=== PATIENT | female | born 1960 | race Caucasian/White ===

== ENCOUNTER 2024-06-06 16:54 | Observation (INO) | payer MEDICAID, SELFPAY ==
--- NOTE | ~2024-06-06 | MR_ITS ---
EXAMINATION: MR BRAIN WITHOUT CONTRAST CLINICAL INFORMATION: Cerebellar cerebrovascular accident. COMPARISON: CT head from 06/06/2024. TECHNIQUE: MRI of the brain was obtained using routine sequences without contrast. FINDINGS: No focal restricted diffusion is demonstrated to suggest acute or subacute cerebral ischemia. No evidence of acute or chronic hemorrhagic products on heme-sensitive imaging. Nonspecific scattered subcortical, deep white matter, and periventricular T2 FLAIR hyperintensities (including some of which are in a perivenular distribution within the periatrial/temporal white matter). Proportional prominence of the ventricles and sulcal spaces without evidence of obstructive hydrocephalus. No abnormal mass effect. No midline shift. Normal appearance of the pituitary gland. Normal positioning of the cerebellar tonsils. Normal arterial and venous vascular flow voids are present. Normal, homogeneous marrow signal. There is a 1.5 cm simultaneous inclusion cyst in the right cheek. Moderate mucosal thickening of the paranasal sinuses. No signal abnormalities within the mastoids. MR/MR head/brain wo con IMPRESSION: 1. No acute intracranial abnormalities. 2. Moderate nonspecific white matter changes. While these changes are most commonly seen with underlying microangiopathy, the overall distribution could be seen in the setting of chronic demyelinating lesions in the appropriate clinical setting. Mild generalized cerebral volume loss.
--- NOTE | ~2024-06-06 | CT_ITS ---
EXAMINATION: CT HEAD WITHOUT CONTRAST CLINICAL INFORMATION: Dizziness COMPARISON: None. TECHNIQUE: Multidetector CT examination of the head is performed without contrast. This CT examination was performed using dose optimization techniques as appropriate, variously including the following: *Automated exposure control *Adjustment of mA and/or kV according to patient size (this includes techniques or standardized protocols for targeted exams where dose is matched to indication/reason for exam; i.e. extremities or head) *Use of iterative reconstruction technique DLP: 652 mGy-cm FINDINGS: There is no evidence of a recent intracranial hemorrhage or extra-axial collection. The midline structures are nondisplaced. The ventricles, cisterns, and sulci are within normal limits. There is no evidence of an intra-axial mass. There are no suspicious focal areas of abnormal brain attenuation. The luther-white interface is within normal limits. There is no evidence of acute territorial infarct. There is a small poorly defined area of low-attenuation in the deep white matter of the right pinto radiata (series 2, image 34). This could represent some microangiopathy or nonspecific white matter disease. There is no mass effect. There is opacification within several of the right ethmoid air cells and there is fluid within the sphenoid sinus. The mastoids are not well pneumatized but are aerated. CT/CT head/brain wo IV con IMPRESSION: 1. There is no evidence of a recent intracranial hemorrhage. 2. No large territorial infarct 3. Some nonspecific white matter disease There is some paranasal sinus disease including fluid in the sphenoid
[2024-06-06 17:03] VITALS: BP 184/90; PULSE 84; O2SAT 97
[2024-06-06 17:18] VITALS: BP 167/73; PULSE 92; RESP 18; TEMP 36.6; O2SAT 97; BMI 29.2
[2024-06-06 17:23] VITALS: BP 167/73; PULSE 92; RESP 18; TEMP 36.6; O2SAT 97
--- NOTE | 2024-06-06 17:35 | PC.NURSE ---
20G to RAC. Tolerated well, good blood return.
--- NOTE | 2024-06-06 17:35 | PC.NURSE ---
Labs drawn and sent.
[2024-06-06 17:39] LABS: MANUAL DIFF FLAG NO
[2024-06-06 17:45] LABS: Basophils Absolute Auto 0.1 X10*3/uL (0.0-0.2); Basophils Percent Auto 0.7 % (0-2); Eosinophils Absolute Auto 0.2 X10*3/uL (0.0-0.4); Eosinophils Percent Auto 1.7 % (0-4); Hematocrit 44.6 % (37.0-47.0); Imm Gran Abs Auto 0.01 X10*3/uL (0.00-0.03); Imm Gran Pct Auto 0.1 % (0.0-0.4); Lymphocytes Absolute Auto 3.3 X10*3/uL (1.2-4.9); Lymphocytes Percent Auto 37.2 % (20-40); Mean Corpuscular HGB Conc 35.9 g/dl (31.0-35.0); Mean Corpuscular Hemoglobin 32.3 pg (27.0-33.0); Mean Corpuscular Volume 90.1 fL (80.0-98.0); Mean Platelet Volume 9.5 fL (9.4-12.3); Monocytes Absolute Auto 0.8 X10*3/uL (0.1-1.2); Monocytes Percent Auto 8.6 % (2-11); Neutrophils Absolute Auto 4.6 x10*3/uL (2.0-8.3); Neutrophils Percent Auto 51.7 % (45-73); Platelet Count 267 X10*3/uL (160-400); Red Blood Count 4.95 X10*6/uL (4.20-5.50); Red Cell Distribution Width 12.7 % (11.0-16.0); White Blood Count 8.9 X10*3/uL (4.8-10.8)
--- NOTE | 2024-06-06 17:53 | ECG_ITS ---
Test Reason : DIZZINESS Blood Pressure : / mmHG Vent. Rate : 088 BPM Atrial Rate : 088 BPM P-R Int : 118 ms QRS Dur : 086 ms QT Int : 340 ms P-R-T Axes : 059 046 036 degrees QTc Int : 411 ms Normal sinus rhythm with sinus arrhythmia Nonspecific ST abnormality Abnormal ECG When compared with ECG of 07-DEC-2011 18:46, No significant change was found Referred By: Ranjan Garsia Electronically Signed By:TERESO RODNEY
[2024-06-06 17:54] LABS: Anion Gap 15 (12-20); Blood Urea Nitrogen 11 mg/dL (9-16); Calcium 9.8 mg/dL (8.4-10.2); Carbon Dioxide 21 mmol/L (22-29); Chloride 109 mmol/L (96-108); Creatinine Clr Calc Pharmacy 89.3; Estimated Glomerular Filt Rate > 60; Glucose Random 94 mg/dL (60-115); Potassium 3.8 mmol/L (3.3-5.1); Sodium 141 mmol/L (135-145)
--- NOTE | 2024-06-06 18:04 | ED_ITS ---
HPI - Dizziness General Chief Complaint: Dizziness Stated Complaint: dizziness Time Seen by Provider: 06/06/24 17:51 Source: patient and family (, Ramos) Mode of arrival: EMS Limitations: no limitations History of Present Illness ED Provider: Dr. Ranjan Garsia HPI Narrative: 63-year-old female with a history of MS diagnosed 21 years ago in remission who presents emergency department for evaluation of dizziness. Patient states that 3 days prior she had a sudden onset of dizziness. She states that she was in bed, rolled over and developed spinning sensation. She states that the spinning sensation resolves with rest but comes on with some position change. Patient had associated photophobia and occasional headache with the dizziness. She denied nausea, vomiting, diarrhea, fever, chills, rhinorrhea. Patient states that she took loratadine with no relief for symptoms. According to her the patient has been in bed for 3 days and has not been able to get up and walk secondary to her dizziness. The states the patient had difficulty transferring from her bed to EMS stretcher secondary to severe vertigo. She had to pause several times prior to being able to get on a stretcher. She denied fever, chills, rhinorrhea, sore throat, nausea, vomiting, diarrhea. She denies weakness. She states that the vertigo does make her head hurt but she states that is not headache is just an uncomfortable feeling. Related Data Home Medications ?Medication ?Instructions ?Recorded ?Confirmed ibuprofen 200 mg tablet 200 mg PO DAILY PRN Pain 06/06/24 06/06/24 loratadine 10 mg tablet 10 mg PO DAILY PRN Allergy Symptoms 06/06/24 06/06/24 Allergies Allergy/AdvReac Type Severity Reaction Status Date / Time No Known Allergies Allergy Verified 06/06/24 17:20 Review of Systems 2 Review of Systems: Yes all other systems are reviewed and are negative [facility] Past Medical History [facility] Narrative: Social history: She does smoke cigarettes. She denies tobacco and alcohol use. Her is here in the emergency department. Medical History (Updated 06/06/24 @ 22:14 by Ranjan Garsia MD) Multiple sclerosis Social History Social History Smoked in Last 30 Days: Yes Use of substances other than those prescribed or required for medical reasons: No Advance Directives: No Advance Directives Information Provided: No Do you have a plan to hurt others: No Plan Physical Exam 2 Vital Signs: Vital Signs: Last Vital Signs Temp 98.8 F 06/06/24 21:16 Pulse 88 06/06/24 21:16 Resp 18 06/06/24 21:16 BP 134/82 06/06/24 21:16 Pulse Ox 97 06/06/24 21:16 O2 Del Method Room Air 06/06/24 21:16 BMI result Body Mass Index 29.2 Vital signs revealed an elevated blood pressure of 167/73 Exam: General: Awake, alert in no distress, patient has inducible vertigo with minimal position change Head: Normocephalic, atraumatic EENT: PERRL, Lids normal, sclera normal, conjunctiva normal, nose normal , ears normal, throat without erythema or exudates Neck: Supple, no adenopathy Lung: breath sounds symmetric, no wheezing, rales or rhonchi Chest: symmetric movement, nontender Heart: regular rate and rhythm, normal S1, S2 no murmurs or rubs Abdomen: soft, non-tender, nondistended, normal bowel sounds Back: no vertebral tenderness, no CVAT Extremities: no deformities, moves all extremities symmetrically Neuro: General: Awake, alert, oriented, normal speech, Cranial nerves: cranial nerves intact Strength: moves all extremities symmetrically with normal strength Cerebellar exam: Normal ntvogw-rm-prxs-to-finger, normal rapid finger movement, normal heel to hodge Psych: Pleasant, cooperative Medications Administered Generic Name Dose Route Start Last Admin Trade Name Freq PRN Reason Stop Dose Admin Enoxaparin Sodium 40 mg 06/06/24 20:15 06/06/24 20:28 Enoxaparin Sodium 40 Mg/0.4 Ml Syringe SUBCUT 40 mg Q24H INÉS Administration Discontinued Medications Generic Name Dose Route Start Last Admin Trade Name Freq PRN Reason Stop Dose Admin Aspirin 324 mg 06/06/24 20:06 06/06/24 20:28 Aspirin 81 Mg Tab.Chew PO 06/06/24 20:07 324 mg ONCE ONE Administration Sodium Chloride 1,000 mls @ 999 mls/hr 06/06/24 18:04 06/06/24 20:30 Ns IV 06/06/24 19:04 Infused .Q1H1M STA Infusion Lorazepam 1 mg 06/06/24 18:04 06/06/24 18:51 Lorazepam 2 Mg/Ml Vial IVPUSH 06/06/24 18:05 1 mg STAT STA Administration Meclizine HCl 25 mg 06/06/24 18:04 06/06/24 18:51 Meclizine Hcl 25 Mg Tablet PO 06/06/24 18:05 25 mg ONCE STA Administration Medical Decision Making Medical Decision Making [facility] Narrative: 63-year-old female with a history of MS diagnosed 21 years ago in remission who presents emergency department for severe, positional evaluation of dizziness/room spinning vertigo x3 days to the point where she is not able to get out of bed secondary to severe dizziness. Symptoms comes on suddenly with position change and if she stays still the symptoms resolved completely. Patient had no concerning associated symptoms. Physical examination did reveal inducible vertigo with position change, neurologic exam was nonfocal. Differential diagnosis: ?Includes but is not limited to positional vertigo, MS exacerbation, cerebellar stroke, dehydration, electrolyte abnormalities, anemia Following evaluation was ordered: CBC, CMP, troponin, PTT, EKG, CT scan of the head without IV contrast Patient was initially treated with the following: Normal saline x1 L, Ativan 4 mg IV, meclizine 25 mg orally Course: 19:23 My independent interpretation patient's laboratory evaluation as follows: CBC was normal. CMP was normal. Troponin was below detectable limits. Twelve EKG was unremarkable. CT scan of the brain did not reveal any acute abnormalities, she had some nonspecific white matter disease. The patient had minimal improvement with the above treatment. Given her inability to get out of bed in the severity at her vertigo symptoms, patient will need to be admitted for further management and possible MRI to rule out cerebellar infarct. I did discuss admission with the covering hospitalist Dr. Mcrae and the patient will be admitted for further management. Admission/Observation Consideration of admission/observation: Escalation of care including admission/observation considered Consult Healthcare Provider Management of the patient was discussed with: Hospitalist Lab Data [facility] Lab Attestation statement: I reviewed the patient's lab results. 06/06/24 17:33 06/06/24 17:33 Labs: Lab Results 06/06/24 Range/Units 17:33 WBC 8.9 (4.8-10.8) X10*3/uL RBC 4.95 (4.20-5.50) X10*6/uL Hgb 16.0 (12.0-16.0) g/dl Hct 44.6 (37.0-47.0) % MCV 90.1 (80.0-98.0) fL MCH 32.3 (27.0-33.0) pg MCHC 35.9 H (31.0-35.0) g/dl RDW 12.7 (11.0-16.0) % Plt Count 267 (160-400) X10*3/uL MPV 9.5 (9.4-12.3) fL Immature Gran % (Auto) 0.1 (0.0-0.4) % Neut % (Auto) 51.7 (45-73) % Lymph % (Auto) 37.2 (20-40) % [place] % (Auto) 8.6 (2-11) % Eos % (Auto) 1.7 (0-4) % Baso % (Auto) 0.7 (0-2) % Lymph # (Auto) 3.3 (1.2-4.9) X10*3/uL [place] # (Auto) 0.8 (0.1-1.2) X10*3/uL Eos # (Auto) 0.2 (0.0-0.4) X10*3/uL Baso # (Auto) 0.1 (0.0-0.2) X10*3/uL Abs Immat Gran (auto) 0.01 (0.00-0.03) X10*3/uL Absolute Neuts (auto) 4.6 (2.0-8.3) x10*3/uL Absolute Nucleated RBC 0.000 (0.0-0.012) X10*3/uL Nucleated RBC % (auto) 0.0 (0.0-0.2) /100WBC Sodium 141 (135-145) mmol/L Potassium 3.8 (3.3-5.1) mmol/L Chloride 109 H (96-108) mmol/L Carbon Dioxide 21 L (22-29) mmol/L Anion Gap 15 (12-20) BUN 11 (9-16) mg/dL Creatinine 0.69 (0.5-1.4) mg/dL Estim Creat Clear Calc 89.3 Estimated GFR > 60 Random Glucose 94 (60-115) mg/dL Calcium 9.8 (8.4-10.2) mg/dL Total Bilirubin 0.3 (0.0-1.0) mg/dL Direct Bilirubin 0.1 (0.0-0.5) mg/dL AST 16 (5-31) U/L ALT 13 (0-31) U/L Alkaline Phosphatase 57 (39-117) U/L Troponin I High Sens < 2.7 (<3.5-17.0) ng/L Total Protein 7.5 (6.5-8.0) g/dL Albumin 4.0 (3.5-5.0) g/dL Independent Interpretation I performed an independent interpretation of an: EKG Interpretation: My independent interpretation patient's 12 EKG done at 18:02 hours is as follows: Normal sinus rhythm with a rate of 88, normal CO, QRS duration and QTC interval, no ST segment elevation, no ST segment depression Radiology Impression Discussion of test interpretation with radiology: I have reviewed the radiologist's reading. Radiologist Impression: CT head/brain wo IV con IMPRESSION: 1. There is no evidence of a recent intracranial hemorrhage. 2. No large territorial infarct 3. Some nonspecific white matter disease There is some paranasal sinus disease including fluid in the sphenoid Dictated By: Fortino Sellers MD Independent Historian Clinical information obtained from an independent historian. History obtained from or confirmed by: Spouse Chronic Conditions Patient?s care impacted by: Other (Multiple sclerosis) Discharge Plan Discharge Clinical Impression: Acute severe vertigo, Unable to ambulate Patient Disposition: Admitted As Inpatient
[2024-06-06 18:06] LABS: Troponin-I High Sensitivity < 2.7 ng/L (<3.5-17.0)
[2024-06-06 18:23] LABS: Alanine Aminotransferase 13 U/L (0-31); Alkaline Phosphatase 57 U/L (39-117); Aspartate Amino Transferase 16 U/L (5-31); Bilirubin Direct 0.1 mg/dL (0.0-0.5); Bilirubin Total 0.3 mg/dL (0.0-1.0); Total Protein 7.5 g/dL (6.5-8.0)
[2024-06-06] MEDS: 0.9 % Sodium Chloride 1,000 ML 999 ML IV (18:50)
[2024-06-06] MEDS: LORazepam 2 MG/ML VIAL 1 MG IVPUSH (18:51)
[2024-06-06] MEDS: Meclizine HCl 25 MG TABLET PO (18:51)
[2024-06-06 19:54] VITALS: BP 147/81; PULSE 83; RESP 18; TEMP 37; O2SAT 97
--- NOTE | 2024-06-06 19:55 | MHC.EDTECH ---
This tech took over care of patient at 1900,hourly rounds,vitals, and belongings list completed,patient is resting at this time, at bedside,call young in reach
--- NOTE | 2024-06-06 20:09 | PHA.MEDREC ---
Addendum entered by Tony Tolentino RP 06/06/24 20:35: MED REC CHECKED BY [facility] Original Note: Pharmacy Consult ? Medication Reconciliation Pharmacy has completed the medication reconciliation.
--- NOTE | 2024-06-06 20:11 | PM.IMHP ---
History of Present Illness Date of Service: 06/06/24 <CAROLINA Alexander - Last Filed: 06/06/24 21:58> Attending physician on admission: Cielo Schaffer <CAROLINA Alexander - Last Filed: 06/06/24 21:58> Chief Complaint: Dizziness <CAROLINA Alexander - Last Filed: 06/06/24 21:58> Pt is a 63-year-old female with a PMH significant for multiple sclerosis diagnosed 21 years ago in remission?not on home meds who presents to the ED with?dizziness x3 days. Pt reports turning over in her bed on Monday morning and then experiencing the ?whole room spinning?. Since then patient has been bed-bound and unable to sit up or walk due to extreme dizziness. Dizziness associated with positional changes of head. Also complains of occasional photophobia and intermittent mild headache. According to her who is at bedside patient has only been able to eat or drink a little bit of food during this time. Has experienced a few similar episodes of vertigo-like symptoms while changing positions in the bed in the past, though normally these would last for less than a minute at a time. Denies nausea or vomiting. No acute vision or hearing changes. Denies chest pain/pressure, palpitations. No shortness a breath or difficulty breathing. Denies fever, chills. Patient reports saw a PCP last year for a yearly physical, though did not see a a PCP prior to that for many years. In the ED pt with elevated HR of 92 and hypertensive up to 167/73. Labs were grossly unremarkable. No leukocytosis. Stable H& H. No significant electrolyte abnormalities. Renal and hepatic function baseline. Troponin negative. CT?of head showed no evidence of recent intracranial hemorrhage or large territorial infarct. Did show some nonspecific white matter disease. EKG demonstrated normal sinus rhythm with nonspecific ST Pt was treated with IVF, lorazepam, and meclizine. Pt will be admitted to the hospital under observation for treatment and further evaluation of dizziness likely secondary to BPPV. <CAROLINA Alexander - Last Filed: 06/06/24 21:58> Review of Systems Review of Systems: Dizziness associated with head movement Mild headache Photophobia No acute hearing or vision changes Denies nausea, vomiting No chest pain/pressure, palpitations Denies fever, chills, abdominal pain <CAROLINA Alexander - Last Filed: 06/06/24 21:58> [facility] Medical History: Medical History (Updated 06/06/24 @ 21:53 by CAROLINA Alexander) Multiple sclerosis <CAROLINA Alexander - Last Filed: 06/06/24 21:58> Social History: Social History Smoked in Last 30 Days: Yes Use of substances other than those prescribed or required for medical reasons: No Advance Directives: No Advance Directives Information Provided: No Do you have a plan to hurt others: No Plan <CRAOLINA Alexander - Last Filed: 06/06/24 21:58> Meds Allergies/Adverse reactions: Allergies Allergy/AdvReac Type Severity Reaction Status Date / Time No Known Allergies Allergy Verified 06/06/24 17:20 <CAROLINA Alexander - Last Filed: 06/06/24 21:58> Active Medications: Current Medications Acetaminophen (Acetaminophen 325 Mg Tablet) 650 mg PO Q6H PRN PRN Reason: Pain, Mild (Pain Scale 1-3), fever or headache Aspirin (Aspirin 81 Mg Tab.Chew) 324 mg PO ONCE ONE Stop: 06/06/24 20:07 Calcium Carbonate (Calcium Carbonate 750 Mg Tab.Chew) 750 mg PO Q4H PRN PRN Reason: Heartburn Enoxaparin Sodium (Enoxaparin Sodium 40 Mg/0.4 Ml Syringe) 40 mg SUBCUT Q24H INÉS Magnesium Hydroxide (Milk Of Magnesia 30 Ml Oral.Susp) 30 ml PO DAILY PRN PRN Reason: Constipation Meclizine HCl (Meclizine Hcl 25 Mg Tablet) 25 mg PO Q6H PRN PRN Reason: Vertigo Melatonin (Melatonin 3 Mg Tablet) 6 mg PO BEDTIME PRN PRN Reason: Insomnia Ondansetron HCl (Ondansetron Hcl 4 Mg/2 Ml Vial) 4 mg IVPUSH Q8H PRN PRN Reason: Nausea and Vomiting Sodium Chloride (0.9 % Sodium Chloride Flush 3 Ml Syringe) 3 ml IVFLUSH QSHIFT INÉS <CAROLINA Alexander - Last Filed: 06/06/24 21:58> Home medications: Home Medications ?Medication ?Instructions ?Recorded ?Confirmed ?Last Taken ?Type ibuprofen 200 mg tablet 200 mg PO DAILY PRN Pain 06/06/24 06/06/24 06/06/24 History loratadine 10 mg tablet 10 mg PO DAILY PRN Allergy Symptoms 06/06/24 06/06/24 06/06/24 History <CAROLINA Alexander - Last Filed: 06/06/24 21:58> Physical Exam Vital Signs and Narrative: Vital Signs: Last Vital Signs Temp 98.6 F 06/06/24 19:54 Pulse 83 06/06/24 19:54 Resp 18 06/06/24 19:54 BP 147/81 H 06/06/24 19:54 Pulse Ox 97 06/06/24 19:54 O2 Del Method Room Air 06/06/24 19:54 BMI result Body Mass Index 29.2 <CAROLINA Alexander - Last Filed: 06/06/24 21:58> General: AOx3, no acute distress Resp: CTA bilaterally CVS: S1, S2, RRR GI: +BS, NT, no distention Skin: Warm, dry Neuro: Cranial nerves II-XII grossly intact bilaterally. Motor grossly intact bilaterally Extremities: No edema Psych: Appropriate affect <CAROLINA Alexander - Last Filed: 06/06/24 21:58> Results Labs CBC and Chem 7: 06/06/24 17:33 06/06/24 17:33 <CAROLINA Alexander - Last Filed: 06/06/24 21:58> Labs: Laboratory Results - last 24 hr 06/06/24 17:33 MCV 90.1 MCH 32.3 MCHC 35.9 H RDW 12.7 Plt Count 267 MPV 9.5 Immature Gran % (Auto) 0.1 Neut % (Auto) 51.7 Lymph % (Auto) 37.2 [place] % (Auto) 8.6 Eos % (Auto) 1.7 Baso % (Auto) 0.7 Lymph # (Auto) 3.3 [place] # (Auto) 0.8 Eos # (Auto) 0.2 Baso # (Auto) 0.1 Abs Immat Gran (auto) 0.01 Absolute Neuts (auto) 4.6 Absolute Nucleated RBC 0.000 Nucleated RBC % (auto) 0.0 Anion Gap 15 Estim Creat Clear Calc 89.3 Estimated GFR > 60 Random Glucose 94 Calcium 9.8 Total Bilirubin 0.3 Direct Bilirubin 0.1 AST 16 ALT 13 Alkaline Phosphatase 57 Troponin I High Sens < 2.7 Total Protein 7.5 Albumin 4.0 <CAROLINA Alexander - Last Filed: 06/06/24 21:58> Imaging Radiologist's Impressions: Impressions Head CT 06/06/24 18:33 IMPRESSION: 1. There is no evidence of a recent intracranial hemorrhage. 2. No large territorial infarct 3. Some nonspecific white matter disease There is some paranasal sinus disease including fluid in the sphenoid <CAROLINA Alexander - Last Filed: 06/06/24 21:58> Assessment and Plan (1) Dizziness: Status: Acute <CAROLINA Alexander - Last Filed: 06/06/24 21:58> Pt is a 63-year-old female with a PMH significant for multiple sclerosis diagnosed 21 years ago in remission?not on home meds who presents to the ED with?dizziness x3 days. Pt will be admitted to the hospital under observation for treatment and further evaluation of dizziness likely secondary to BPPV. Dizziness Patient with feeling like the whole room is spinning x3 days Associated with head movement Has been bed-bound since then, unable to sit or stand up Most likely secondary to BPPV CT of head negative for acute intracranial pathology Will get an MRI of brain Will treat meclizine PT consult for likely Babak maneuver in the morning Multiple sclerosis Apparently diagnosed 21 years prior and currently in remission Full Code Attending:?Dr. Schaffer DVT Prophylaxis: Lovenox Patient will be admitted to the hospital under observation for treatment and further evaluation of dizziness likely secondary to benign paroxysmal positional vertigo. Patient will be treated with meclizine and be seen by PT for over in morning. <CAROLINA Alexander - Last Filed: 06/06/24 21:58> Pt is a 63-year-old female with a PMH significant for multiple sclerosis diagnosed 21 years ago in remission?not on home meds who presents to the ED with?dizziness x3 days. Pt will be admitted to the hospital under observation for treatment and further evaluation of dizziness likely secondary to BPPV. Vertigo Patient with feeling like the whole room is spinning x3 days Associated with head movement Has been bed-bound since then, unable to sit or stand up Most likely secondary to BPPV CT of head negative for acute intracranial pathology MRI of brain without acute CVA Will treat meclizine PT consult for likely Babak maneuver in the morning Multiple sclerosis Apparently diagnosed 21 years prior and currently in remission Full Code Attending:?Dr. Schaffer DVT Prophylaxis: Tsering Patient will be admitted to the hospital under observation for treatment and further evaluation of dizziness likely secondary to benign paroxysmal positional vertigo. Patient will be treated with meclizine and be seen by PT for over in morning. <Cielo Schaffer MD - Last Filed: 06/06/24 22:10> Quality Stroke Does the patient have a stroke diagnosis?: No <CAROLINA Alexander - Last Filed: 06/06/24 21:58> VTE Prior VTE?: No <CAROLINA Alexander - Last Filed: 06/06/24 21:58> VTE Risk Level:: Medical - moderate - high <CAROLINA Alexander - Last Filed: 06/06/24 21:58> VTE Device Contraindication: Treatment Not Indicated <CAROLINA Alexander - Last Filed: 06/06/24 21:58> VTE Drug Contraindication: N/A - Med Ordered <CAROLINA Alexander - Last Filed: 06/06/24 21:58>
--- NOTE | 2024-06-06 20:25 | PC.NURSE ---
MRI screening form completed with pt.
[2024-06-06] MEDS: Enoxaparin Sodium 40 MG/0.4 ML SYRINGE SUBCUT (20:28)
[2024-06-06] MEDS: Aspirin 81 MG TAB.CHEW 324 MG PO (20:28)
--- NOTE | 2024-06-06 20:34 | MHC.EDTECH ---
Patient was transported to MRI at this time.
--- NOTE | 2024-06-06 21:11 | MHC.EDTECH ---
Patient came back from MRI at this time,patient placed on the phototypesetting equipment monitor,vitals taken,patient is resting quietly at this time
[2024-06-06 21:16] VITALS: BP 134/82; PULSE 88; RESP 18; TEMP 37.1; O2SAT 97
--- NOTE | 2024-06-06 21:18 | MHC.EDTECH ---
Patient was given a turkey sandwich per request, got her a bottle of coke and chips,
--- NOTE | 2024-06-06 23:04 | PC.NURSE ---
this rn assumed care of pt, pt resting in stretcher, no acute distress noted. normal sinus on tele 70-71bpm.
[2024-06-07] VITALS (9 sets, daily range): BP systolic 116–175; BP diastolic 68–79; PULSE 67–85; RESP 13–20; TEMP 36.7–37.2; O2SAT 97–99; BMI 29.3
--- NOTE | 2024-06-07 | MHC.EDTECH ---
Hourly rounds and vitals completed,patient is resting quietly at this time,call young in reach
[2024-06-07] MEDS: 0.9 % Sodium Chloride Flush 3 ML SYRINGE IVFLUSH ×4 (00:06→19:49)
--- NOTE | 2024-06-07 04:04 | MHC.EDTECH ---
Hourly rounds and vitals completed,patient is resting quietly call young in reach
[2024-06-07 06:45] LABS: Hematocrit 41.2 % (37.0-47.0); Hemoglobin 14.5 g/dl (12.0-16.0); Mean Corpuscular HGB Conc 35.2 g/dl (31.0-35.0); Mean Corpuscular Hemoglobin 32.2 pg (27.0-33.0); Mean Corpuscular Volume 91.4 fL (80.0-98.0); Mean Platelet Volume 9.8 fL (9.4-12.3); Platelet Count 231 X10*3/uL (160-400); Red Blood Count 4.51 X10*6/uL (4.20-5.50); Red Cell Distribution Width 12.8 % (11.0-16.0); White Blood Count 7.4 X10*3/uL (4.8-10.8)
[2024-06-07 07:03] LABS: Anion Gap 12 (12-20); Blood Urea Nitrogen 10 mg/dL (9-16); Calcium 9.2 mg/dL (8.4-10.2); Carbon Dioxide 21 mmol/L (22-29); Chloride 114 mmol/L (96-108); Creatinine Clr Calc Pharmacy 106.2; Estimated Glomerular Filt Rate > 60; Glucose Random 88 mg/dL (60-115); Potassium 3.7 mmol/L (3.3-5.1); Sodium 143 mmol/L (135-145)
--- NOTE | 2024-06-07 09:08 | MHC.CM.PN ---
CM met with Patient at bedside, in the ED and addressed TURNER with her (original was given to Patient and a copy will be placed on the chart). Patient lives in an apartment with her and has been bed bound x4 days(typically independent/no DME/no services & working). DC plan is pending PT eval and CM has initiated and will follow for dc planning. PCP is Dr. Brian Cam. NO HCP.
--- NOTE | 2024-06-07 10:31 | P.PNIM_ITS ---
Subjective Subjective Date of Service: 06/07/24 Interval History: seen and examined still with symptoms upon movement Review of Systems Negative except HPI/interval history. Physical Exam 2 Vital Signs: Vital Signs: Last Vital Signs Temp 98.0 F 06/07/24 07:37 Pulse 67 06/07/24 07:37 Resp 16 06/07/24 07:37 BP 175/75 H 06/07/24 07:37 Pulse Ox 97 06/07/24 07:37 O2 Del Method Room Air 06/07/24 07:37 BMI result Body Mass Index 29.2 Const: Other: General - no acute distress, appears comfortable Cardiovascular - regular rate and rhythm, S1-S2 Lungs - normal respiratory effort, clear to auscultation bilaterally, no wheezing Abdomen - soft, nontender, no rebound or guarding Extremities - no edema bilaterally Neuro - awake and alert, no focal deficits Objective Data Active Medications Acetaminophen (Acetaminophen 325 Mg Tablet) 650 mg PO Q6H PRN PRN Reason: Pain, Mild (Pain Scale 1-3), fever or headache Calcium Carbonate (Calcium Carbonate 750 Mg Tab.Chew) 750 mg PO Q4H PRN PRN Reason: Heartburn Enoxaparin Sodium (Enoxaparin Sodium 40 Mg/0.4 Ml Syringe) 40 mg SUBCUT Q24H [facility] Last Admin: 06/06/24 20:28 Dose: 40 mg Documented By: KELLY Magnesium Hydroxide (Milk Of Magnesia 30 Ml Oral.Susp) 30 ml PO DAILY PRN PRN Reason: Constipation Meclizine HCl (Meclizine Hcl 25 Mg Tablet) 25 mg PO Q6H PRN PRN Reason: Vertigo Melatonin (Melatonin 3 Mg Tablet) 6 mg PO BEDTIME PRN PRN Reason: Insomnia Ondansetron HCl (Ondansetron Hcl 4 Mg/2 Ml Vial) 4 mg IVPUSH Q8H PRN PRN Reason: Nausea and Vomiting Sodium Chloride (0.9 % Sodium Chloride Flush 3 Ml Syringe) 3 ml IVFLUSH QSHIFT [facility] Last Admin: 06/07/24 00:06 Dose: 3 ml Documented By: SRINIVAS Labs 06/07/24 06:27 06/07/24 06:27 Labs: Laboratory Results - last 24 hr 06/06/24 06/07/24 17:33 06:27 MCV 90.1 91.4 MCH 32.3 32.2 MCHC 35.9 H 35.2 H RDW 12.7 12.8 Plt Count 267 231 MPV 9.5 9.8 Immature Gran % (Auto) 0.1 Neut % (Auto) 51.7 Lymph % (Auto) 37.2 [place] % (Auto) 8.6 Eos % (Auto) 1.7 Baso % (Auto) 0.7 Lymph # (Auto) 3.3 [place] # (Auto) 0.8 Eos # (Auto) 0.2 Baso # (Auto) 0.1 Abs Immat Gran (auto) 0.01 Absolute Neuts (auto) 4.6 Absolute Nucleated RBC 0.000 0.000 Nucleated RBC % (auto) 0.0 0.0 Anion Gap 15 12 Estim Creat Clear Calc 89.3 106.2 Estimated GFR > 60 > 60 Random Glucose 94 88 Calcium 9.8 9.2 D Total Bilirubin 0.3 Direct Bilirubin 0.1 AST 16 ALT 13 Alkaline Phosphatase 57 Troponin I High Sens < 2.7 Total Protein 7.5 Albumin 4.0 Assessment and Plan (1) Acute severe vertigo: Status: Acute Plan 63 yo F presenting with symptoms consistent with vertigo. Reports prior episodes, but never this sustained. 1. Suspected BPPV PT consult for treatment maneuvers for now will give scheduled meclizine 25mg TID MRI negative for acute findings 2. Elevated BP readings does appear to have history of HTN will monitor closely 3. History of MS diagnosed 21 years ago -- currently in remission Full Code DVT pptx -- lovenox Reason for on going hospitalization -- persistent veritgo symptoms, not yet resolved Quality Stroke Does the patient have a stroke diagnosis?: No VTE Prior VTE?: No VTE Risk Level:: Medical - moderate - high VTE Device Contraindication: Treatment Not Indicated VTE Drug Contraindication: N/A - Med Ordered
[2024-06-07] MEDS: Meclizine HCl 25 MG TABLET PO ×3 (11:22→19:49)
[2024-06-07] MEDS: Enoxaparin Sodium 40 MG/0.4 ML SYRINGE SUBCUT (19:49)
[2024-06-08] VITALS: BP 127/69; PULSE 81; RESP 20; TEMP 37.2; O2SAT 95
[2024-06-08 04:00] VITALS: BP 153/70; PULSE 82; RESP 20; TEMP 37.4; O2SAT 99
[2024-06-08 07:26] VITALS: BP 145/72; PULSE 76; RESP 18; TEMP 36.6; O2SAT 97
[2024-06-08] MEDS: Meclizine HCl 25 MG TABLET PO (08:08)
[2024-06-08] MEDS: 0.9 % Sodium Chloride Flush 3 ML SYRINGE IVFLUSH (08:10)
[2024-06-08 11:42] VITALS: BP 128/65; PULSE 78; RESP 16; TEMP 37; O2SAT 99
--- NOTE | 2024-06-08 14:35 | HO.PM.IMPN ---
Subjective Subjective Date of Service: 06/08/24 Interval History: Being followed for dizziness. Complaining of generalized weakness, no dizziness, no nausea, no vomiting tolerated diet no other acute events overnight, is concerned that patient is minimizing her symptoms and does have dizziness. Review of Systems All other system reviewed and are negative. Physical Exam Vital Signs: Vital Signs: Last Vital Signs Temp 98.6 F 06/08/24 11:42 Pulse 78 06/08/24 11:42 Resp 16 06/08/24 11:42 BP 128/65 06/08/24 11:42 Pulse Ox 99 06/08/24 11:42 O2 Del Method Room Air 06/08/24 11:42 BMI result Body Mass Index 29.3 Const: Other: General resting comfortably in no acute distress. No nystagmus Neck no JVD. CVS regular rate rhythm, Respiratory lungs clear to auscultation, no respiratory distress, no wheeze, no rhonchi. Gastrointestinal abdomen soft, non tender, bowel sounds audible, no guarding , no rigidity. Extremities no edema. Neuro non focal Skin no rash Objective Data Active Medications Acetaminophen (Acetaminophen 325 Mg Tablet) 650 mg PO Q6H PRN PRN Reason: Pain, Mild (Pain Scale 1-3), fever or headache Calcium Carbonate (Calcium Carbonate 750 Mg Tab.Chew) 750 mg PO Q4H PRN PRN Reason: Heartburn Enoxaparin Sodium (Enoxaparin Sodium 40 Mg/0.4 Ml Syringe) 40 mg SUBCUT Q24H [facility] Last Admin: 06/07/24 19:49 Dose: 40 mg Documented By: CHEO Magnesium Hydroxide (Milk Of Magnesia 30 Ml Oral.Susp) 30 ml PO DAILY PRN PRN Reason: Constipation Meclizine HCl (Meclizine Hcl 25 Mg Tablet) 25 mg PO TID [facility] Stop: 06/08/24 21:01 Last Admin: 06/08/24 08:08 Dose: 25 mg Documented By: TIFFANIE Melatonin (Melatonin 3 Mg Tablet) 6 mg PO BEDTIME PRN PRN Reason: Insomnia Ondansetron HCl (Ondansetron Hcl 4 Mg/2 Ml Vial) 4 mg IVPUSH Q8H PRN PRN Reason: Nausea and Vomiting Sodium Chloride (0.9 % Sodium Chloride Flush 3 Ml Syringe) 3 ml IVFLUSH QSHIFT [facility] Last Admin: 06/08/24 08:10 Dose: 3 ml Documented By: TIFFANIE Labs 06/07/24 06:27 06/07/24 06:27 Assessment and Plan (1) Acute severe vertigo: Status: Acute Plan 63 yo F presenting with symptoms consistent with vertigo. Reports prior episodes, but never this sustained. 1. Suspected BPPV Seen by Physical therapy , treated with right Babak maneuver x2 symptoms improved, after treatment patient was able to perform sit stand and ambulated 7 ft on multidirectional path. Continue meclizine t.i.d. as needed MRI negative for acute findings Dizziness resolved recommend to ambulate in hallway, if no recurrent symptoms will discharge home with services. 2. Elevated BP readings does appear to have history of HTN BP stable this morning hold antihypertensives recommend outpatient follow up. 3. History of MS diagnosed 21 years ago -- currently in remission Full Code DVT pptx -- lovenox Reason for on going hospitalization -- weakness/dizziness and safe disposition. Quality Stroke Does the patient have a stroke diagnosis?: No VTE Prior VTE?: No VTE Risk Level:: Medical - moderate - high VTE Device Contraindication: Treatment Not Indicated VTE Drug Contraindication: N/A - Med Ordered
--- NOTE | 2024-06-08 14:51 | P.DS_ITS ---
DS: Providers Provider Date of Service: 06/09/24 Date of admission: 06/06/24 20:14 Primary care physician: Brian Cam MD DS: Diagnosis Discharge Diagnosis (1) Acute severe vertigo: Status: Acute DS: Summary Hospital Course Hospital Course: Date of Service: 06/06/24 Attending physician on admission: Cielo Schaffer Chief Complaint: Dizziness Pt is a 63-year-old female with a PMH significant for multiple sclerosis diagnosed 21 years ago in remission?not on home meds who presents to the ED with?dizziness x3 days. Pt reports turning over in her bed on Monday morning and then experiencing the ?whole room spinning?. Since then patient has been bed- bound and unable to sit up or walk due to extreme dizziness. Dizziness associated with positional changes of head. Also complains of occasional photophobia and intermittent mild headache. According to her who is at bedside patient has only been able to eat or drink a little bit of food during this time. Has experienced a few similar episodes of vertigo-like symptoms while changing positions in the bed in the past, though normally these would last for less than a minute at a time. Denies nausea or vomiting. No acute vision or hearing changes. Denies chest pain/pressure, palpitations. No shortness a breath or difficulty breathing. Denies fever, chills. Patient reports saw a PCP last year for a yearly physical, though did not see a a PCP prior to that for many years. In the ED pt with elevated HR of 92 and hypertensive up to 167/73. Labs were grossly unremarkable. No leukocytosis. Stable H& H. No significant electrolyte abnormalities. Renal and hepatic function baseline. Troponin negative. CT?of head showed no evidence of recent intracranial hemorrhage or large territorial infarct. Did show some nonspecific white matter disease. EKG demonstrated normal sinus rhythm with nonspecific ST Pt was treated with IVF, lorazepam, and meclizine. Pt will be admitted to the hospital under observation for treatment and further evaluation of dizziness likely secondary to BPPV. Hospital course: 63 yo F presenting with symptoms consistent with vertigo, with history of prior episodes, but never sustained, patient admitted to medical floor with a diagnosis of Suspected BPPV, MRI brain negative for acute findings, treated with meclizine t.i.d., subsequently seen by Physical therapy , treated with right Babak maneuver x2, symptoms improved, after treatment patient was able to perform sit stand and ambulated 7 ft on multidirectional path, since patient is ambulating without further episodes of dizziness she is being discharged home on meclizine t.i.d. as needed and continued outpatient physical therapy. Patient noted to have few elevated blood pressure readings, patient not on any hypertensive at home at time of discharge patient blood pressure is is stable recommend outpatient follow-up with PCP. History of MS diagnosed 21 years ago -- currently in remission. Time Attestation Discharge Coordination Time (in mins): 36 Quality: Safe Use of Opioids Does Pt have an Active Cancer Diagnosis on the Problem List?: No Quality: Stroke Does the patient have a stroke diagnosis?: No Physical Exam Vital Signs: Vital Signs: Last Vital Signs Temp 98.6 F 06/08/24 11:42 Pulse 78 06/08/24 11:42 Resp 16 06/08/24 11:42 BP 128/65 06/08/24 11:42 Pulse Ox 99 06/08/24 11:42 O2 Del Method Room Air 06/08/24 11:42 BMI result Body Mass Index 29.3 Const: Other: General resting comfortably in no acute distress. No nystagmus Neck no JVD. CVS regular rate rhythm, Respiratory lungs clear to auscultation, no respiratory distress, no wheeze, no rhonchi. Gastrointestinal abdomen soft, non tender, bowel sounds audible, no guarding , no rigidity. Extremities no edema. Neuro non focal Skin no rash Discharge Plan Discharge Patient Disposition: Home, Self-Care Discharge Diagnosis: Dizziness Referrals: Brian Cam MD [Primary Care Provider] - 1 Week Discharge Medications: New meclizine 25 mg Tablet 25 mg PO TID PRN (Reason: dizziness) Qty: 30 0RF Continued ibuprofen 200 mg Tablet 200 mg PO DAILY PRN (Reason: Pain) loratadine 10 mg Tablet 10 mg PO DAILY PRN (Reason: Allergy Symptoms) Discharge Orders: Discharge Order (Routine); Ordered 06/08/24 Ordered By: Miguel Delong Diet: Advance to usual diet Activity on Discharge: As tolerated Stand Alone Forms: Patient Portal Discharge page Print Language: [place] Care Plan Goals: Dizziness resolved Take meclizine 25 mg 1 tablet 3 times a day as needed for dizziness. Outpatient physical therapy services for gait training, therapeutic activities and exercises Health Concerns: History of MS Plan of Treatment: Outpatient follow-up with primary care physician call for appointment. Assessment: As above Discharge Date/Time: 06/08/24 15:54
[2024-06-08 15:04] VITALS: BP 141/67; PULSE 81; RESP 16; TEMP 36.9; O2SAT 98
--- NOTE | 2024-06-08 16:03 | MHC.CM.PN ---
YUE 06/06/24 Patient is discharged to home self care. She has no payor source listed under insurance. was notified that home services could not be arranged without a payer source. She instructed t/w to notify the patient. T/W spoke with Mary via phone. She understands that once she has the insurance number, Dr Cam can order services. .Her spouse has an appointment Monday with [facility]. The patient stated that she doesnt have a need for home services; but will call PCP if she changes her mind. Pts spouse provided transportation home.
== END 2024-06-08 15:54 | disposition home or self-care (01) ==
LOC: HO.ED 17:53 → HO.EDOVER 20:25 → HO.IMC 06-07 16:18
PROVIDERS: Admitting Provider Student in an Organized Health Care Education/Training Program; Emergency Provider Emergency Medicine Emergency Medical Services; PCP Internal Medicine; Visit Provider Hospitalist
DX: R42 Dizziness and giddiness (principal); G35 Multiple sclerosis; R51.9 Headache, unspecified; H53.149 Visual discomfort, unspecified; I49.9 Cardiac arrhythmia, unspecified; R94.31 Abnormal electrocardiogram [ECG] [EKG]
CPT/HCPCS: 36415; 70450; 70551; 80048; 80076; 84484; 85025; 85027; 93005; 96360; 96361; 96372; 96374; 96375; 97162; 99222; 99285; J1650; J2060

== ENCOUNTER → 2024-06-06 20:14 | Outpatient (BNV) | payer SELFPAY | PROVIDERS: Admitting Provider Student in an Organized Health Care Education/Training Program; Emergency Provider Emergency Medicine Emergency Medical Services; PCP Internal Medicine; Visit Provider Student in an Organized Health Care Education/Training Program | DX: R42 Dizziness and giddiness (principal) | CPT/HCPCS: 99222; 99231; 99239; 99499 ==

== ENCOUNTER 2024-07-09 09:50 | Inpatient (IN) | payer SELFPAY ==
[2024-07-09] VITALS (8 sets, daily range): BP systolic 137–186; BP diastolic 60–103; PULSE 85–99; RESP 14–23; TEMP 36.3–37.4; O2SAT 92–100; BMI 29.1
--- NOTE | ~2024-07-09 | XR_ITS ---
EXAMINATION: XR CHEST CLINICAL INFORMATION: Shortness of breath COMPARISON: None available. TECHNIQUE: Frontal view of the chest was obtained. FINDINGS: Slight interstitial prominence which may reflect vascular etiology versus infectious/inflammatory etiology. Slight right basilar radiopacity. No pneumothorax. Trachea is midline. Cardiac mediastinal silhouette is not enlarged. No large pleural effusion. Osseous structures are intact. Soft tissues are unremarkable XR/XR chest 1V IMPRESSION: 1. Slight interstitial prominence which may reflect vascular etiology versus infectious/inflammatory etiology. 2. Slight right basilar radiopacity. Electronically signed by: Jeffery Singh MD 07/09/2024 12:09 PM EDT
--- NOTE | 2024-07-09 10:29 | ECG_ITS ---
Test Reason : SOB Blood Pressure : / mmHG Vent. Rate : 087 BPM Atrial Rate : 087 BPM P-R Int : 128 ms QRS Dur : 088 ms QT Int : 370 ms P-R-T Axes : 060 060 052 degrees QTc Int : 445 ms Normal sinus rhythm Nonspecific ST abnormality Abnormal ECG When compared with ECG of 06-JUN-2024 18:02, No significant change was found Referred By: Generic ED Physician Electronically Signed By:TERESO RODNEY
[2024-07-09 10:41] LABS: MANUAL DIFF FLAG NO
[2024-07-09 10:42] LABS: Basophils Absolute Auto 0.1 X10*3/uL (0.0-0.2); Basophils Percent Auto 0.6 % (0-2); Eosinophils Absolute Auto 0.3 X10*3/uL (0.0-0.4); Eosinophils Percent Auto 2.9 % (0-4); Hemoglobin 14.4 g/dl (12.0-16.0); Imm Gran Abs Auto 0.01 X10*3/uL (0.00-0.03); Imm Gran Pct Auto 0.1 % (0.0-0.4); Lymphocytes Absolute Auto 3.3 X10*3/uL (1.2-4.9); Lymphocytes Percent Auto 38.7 % (20-40); Mean Corpuscular HGB Conc 35.1 g/dl (31.0-35.0); Mean Corpuscular Hemoglobin 32.8 pg (27.0-33.0); Mean Corpuscular Volume 93.4 fL (80.0-98.0); Mean Platelet Volume 10.2 fL (9.4-12.3); Monocytes Absolute Auto 0.7 X10*3/uL (0.1-1.2); Monocytes Percent Auto 7.5 % (2-11); Neutrophils Absolute Auto 4.3 x10*3/uL (2.0-8.3); Neutrophils Percent Auto 50.2 % (45-73); Platelet Count 207 X10*3/uL (160-400); Red Blood Count 4.39 X10*6/uL (4.20-5.50); White Blood Count 8.6 X10*3/uL (4.8-10.8)
[2024-07-09 11:01] LABS: Troponin-I High Sensitivity 3.2 ng/L (<3.5-17.0)
[2024-07-09 11:18] LABS: Influenza A PCR NEGATIVE (Negative); Influenza B PCR NEGATIVE (Negative); Resp Syncy Virus RNA Qual PCR NEGATIVE (Negative); SARS COV2 PCR INHOUSE NEGATIVE (Negative)
--- NOTE | 2024-07-09 11:28 | ED_ITS ---
[facility] - General Adult General Chief complaint: Dyspnea Stated complaint: SOB Time Seen by Provider: 07/09/24 11:16 Source: patient and RN notes reviewed Mode of arrival: ambulatory Limitations: no limitations History of Present Illness ED Provider: Marilee Tavera PA-C [facility] narrative: This is a 63-year-old female, with a history of multiple sclerosis, who presents emergency department with complaints of shortness for breath and wheezing. Patient states that on of last week approximately 4 days ago she felt as though she was getting sick with a cold. She reports that she was having symptoms of congestion, cough. She states that yesterday she developed wheezing and some shortness for breath. She denies any fevers, chills, chest pain, abdominal pain, nausea, vomiting or diarrhea. No swelling in her lower extremities. She denies history of COPD however she states that she is a smoker, smokes 1 pack per day, 40 pack year history. An ambulance was called, she received Solu-Medrol 125 mg and an updraft. She states that she had some relief of her symptoms however continues to feel short of breath and wheezy. MD complaint: Shortness for breath, wheezing Onset (ago): day(s) Radiation: non-radiation Relieving factors: medication Associated symptoms: cough and shortness of breath Treatments prior to arrival: other (Solu-Medrol, albuterol updraft) Related Data Home Medications ?Medication ?Instructions ?Recorded ?Confirmed ibuprofen 200 mg tablet 200 mg PO DAILY PRN Pain 06/06/24 06/06/24 loratadine 10 mg tablet 10 mg PO DAILY PRN Allergy Symptoms 06/06/24 06/06/24 Previous Rx's ?Medication ?Instructions ?Recorded meclizine 25 mg tablet 25 mg PO TID PRN dizziness #30 tabs 06/08/24 Allergies Allergy/AdvReac Type Severity Reaction Status Date / Time No Known Allergies Allergy Verified 07/09/24 10:26 Review of Systems 2 Review of Systems: Yes all other systems are reviewed and are negative Constitutional: Constitutional: Reports as per [facility] Past Medical History Medical History (Updated 07/09/24 @ 16:18 by CAROLINA Henderson) Hypertension Multiple sclerosis Social History Social History Household Members: Spouse Housing: Apartment Do you presently have visiting nurse or other home services: No Patient Tobacco Use Status: Current everyday Tobacco user Tobacco use type: Cigarette Cigarette Packs Per Day: 1 Cigarettes Per Day: 20.0 Years Smoked: 40 Smoked in Last 30 Days: Yes Use of substances other than those prescribed or required for medical reasons: No Advance Directives: No Advance Directives Information Provided: No Do you have a plan to hurt others: No Plan Patient : No service: No Physical Exam ED Vital Signs: Vital Signs - 24 hr 07/09/24 10:22 07/09/24 10:28 07/09/24 11:50 Temperature 99.3 F 99.3 F Pulse Rate 96 96 99 Respiratory Rate 18 18 23 H Blood Pressure 147/66 H 147/66 H 137/60 Pulse Oximetry 94 94 92 Oxygen Delivery Method Room Air Room Air Room Air 07/09/24 14:16 07/09/24 14:26 07/09/24 16:35 Temperature 97.3 F 98.7 F Pulse Rate 89 92 97 Respiratory Rate 14 18 16 Blood Pressure 148/63 H 151/62 H Pulse Oximetry 92 93 Oxygen Delivery Method Room Air Room Air BMI result Body Mass Index 29.1 Const General: cooperative, comfortable and no acute distress Orientation/consciousness: patient oriented x3 Limitations: no limitations HENMT Head: Yes normal to inspection, Yes normocephalic and Yes atraumatic Ears: hearing grossly normal bilaterally General nose exam: Normal external nose present Face and sinus: Yes normal facial exam Mouth: Normal oral and palatal mucosa present, oropharynx normal and moist mucous membranes Throat: Yes posterior oropharynx normal Eyes General: appearance normal, both eyes and all related structures Eyelids: Yes eyelids normal Conjunctivae: conjunctivae normal Sclerae: sclerae normal Pupils: Equal, round and reactive pupils present EOM: EOMs intact bilaterally Neck Neck: Yes normal visual inspection, Yes full ROM and Yes no lymphadenopathy Lymphatic: no lymphadenopathy noted Chest Chest palpation & inspection: normal inspection of the chest Resp Other: Rhonchorous and coarse lung sounds, with inspiratory and expiratory wheezes Effort & Inspection: normal respiratory effort Cardio Rate: regular rate Rhythm: regular rhythm Heart sounds: S1 normal heart sound present and S2 normal heart sound present GI Inspection: Yes normal to inspection Skin General skin exam: no rashes or lesions noted Trauma: no lacerations or abrasions Wounds: no wounds Neuro General: patient oriented x3 and moves all extremities Cranial nerves: Yes Equal, round and reactive pupils present Extrem Other: No pitting edema noted bilaterally. No calf tenderness. General: Yes normal to inspection Right upper extremity: normal to inspection Left upper extremity: normal to inspection Right lower extremity: normal to inspection Left lower extremity: normal to inspection Course Reevaluation(s) Reevaluation #1: Patient re-evaluated again, inspiratory and expiratory wheezes noted throughout, coarse lung sounds noted. Oxygen saturation 92%, walking O2 90% on room air. Patient has no known history of COPD. Will treat as an pneumonia with steroids, and updrafts. Given she has received multiple updrafts, Solu-Medrol, magnesium without symptomatic improvement patient would benefit from hospitalization. Patient has not improved after receiving IV magnesium, and multiple updrafts, therefore it would be advisable to attempt to admit as she has no hx of known lung disease. Discussed case with my attending physician, Dr. Camp who is in agreement. Time: 16:10 Medications Administered Generic Name Dose Route Start Last Admin Trade Name Freq PRN Reason Stop Dose Admin Azithromycin 500 mg/ Sodium 250 mls @ 125 mls/hr 07/09/24 16:19 07/09/24 17:04 Chloride IV 07/09/24 18:18 125 mls/hr ONCE ONE Administration Discontinued Medications Generic Name Dose Route Start Last Admin Trade Name Freq PRN Reason Stop Dose Admin Albuterol Sulfate 2.5 mg/ 0 mg 07/09/24 14:22 07/09/24 14:24 Albuterol/Ipratropium 3 ml INHALE 07/09/24 14:23 5 dose ONCE ONE Administration Magnesium Sulfate 2 gm in 50 mls @ 150 mls/hr 07/09/24 11:40 07/09/24 12:21 Magnesium Sulfate/H2o IV 07/09/24 11:59 Infused ONCE ONE Infusion Ceftriaxone Sodium 1 gm/ 50 mls @ 100 mls/hr 07/09/24 16:19 07/09/24 17:04 Sodium Chloride IV 07/09/24 16:48 100 mls/hr ONCE ONE Administration Medical Decision Making Medical Decision Making MDM Narrative: This is a 63-year-old female, with a history of multiple sclerosis and vertigo, who presents emergency department with complaints of wheezing and shortness for breath which started yesterday. Patient states that over the last several days she has been sick with cold-like symptoms. She states that this since progressed with wheezing starting yesterday. Denies history of COPD however she is a smoker, reports 40 pack year history. No chest pain or palpitations. No lower extremity edema. Differential diagnoses include URI, pneumonia, COPD exacerbation, bronchitis. Plan: Labs, EKG, chest x-ray, viral swabs, updraft, magnesium IV Differential Diagnosis Differential Diagnoses: The differential diagnosis associated with the presentation includes See above Admission/Observation Consideration of admission/observation: Escalation of care including admission/observation considered Lab Data MDM Lab Attestation statement: I reviewed the patient's lab results. No leukocytosis, stable H&H, chemistry within normal limits. BNP less than 10. 07/09/24 10:35 07/09/24 11:45 Labs: Lab Results 07/09/24 07/09/24 07/09/24 Range/Units 10:35 10:36 11:45 WBC 8.6 (4.8-10.8) X10*3/uL RBC 4.39 (4.20-5.50) X10*6/uL Hgb 14.4 (12.0-16.0) g/dl Hct 41.0 (37.0-47.0) % MCV 93.4 (80.0-98.0) fL MCH 32.8 (27.0-33.0) pg MCHC 35.1 H (31.0-35.0) g/dl RDW 13.0 (11.0-16.0) % Plt Count 207 (160-400) X10*3/uL MPV 10.2 (9.4-12.3) fL Immature Gran % (Auto) 0.1 (0.0-0.4) % Neut % (Auto) 50.2 (45-73) % Lymph % (Auto) 38.7 (20-40) % [place] % (Auto) 7.5 (2-11) % Eos % (Auto) 2.9 (0-4) % Baso % (Auto) 0.6 (0-2) % Lymph # (Auto) 3.3 (1.2-4.9) X10*3/uL [place] # (Auto) 0.7 (0.1-1.2) X10*3/uL Eos # (Auto) 0.3 (0.0-0.4) X10*3/uL Baso # (Auto) 0.1 (0.0-0.2) X10*3/uL Abs Immat Gran (auto) 0.01 (0.00-0.03) X10*3/uL Absolute Neuts (auto) 4.3 (2.0-8.3) x10*3/uL Absolute Nucleated RBC 0.000 (0.0-0.012) X10*3/uL Nucleated RBC % (auto) 0.0 (0.0-0.2) /100WBC Sodium 145 (135-145) mmol/L Potassium 4.3 (3.3-5.1) mmol/L Chloride 111 H (96-108) mmol/L Carbon Dioxide 26 (22-29) mmol/L Anion Gap 12 (12-20) BUN 7 L (9-16) mg/dL Creatinine 0.72 (0.5-1.4) mg/dL Estim Creat Clear Calc 85.3 Estimated GFR > 60 Random Glucose 122 H (60-115) mg/dL Calcium 9.7 (8.4-10.2) mg/dL Troponin I High Sens 3.2 (<3.5-17.0) ng/L B-Natriuretic Peptide < 10 (<100) pg/mL Influenza Type A (PCR) NEGATIVE (Negative) Influenza Type B (PCR) NEGATIVE (Negative) RSV RNA Qual (PCR) NEGATIVE (Negative) SARS-CoV-2 RNA (RT-PCR) NEGATIVE (Negative) Independent Interpretation I performed an independent interpretation of an: EKG Interpretation: EKG normal sinus rhythm at a ventricular rate of 87 beats per minute, no STEMI. EKG was reviewed with my attending physician, Dr. Loja Radiology Impression Discussion of test interpretation with radiology: I have reviewed the radiologist's reading. Radiologist Impression: XR/XR chest 1V IMPRESSION: 1. Slight interstitial prominence which may reflect vascular etiology versus infectious/inflammatory etiology. 2. Slight right basilar radiopacity. Electronically signed by: Jeffery Singh MD 07/09/2024 12:09 PM EDT Dictated By: Jeffery Snigh MD Critical Care Time Critical Care Time Critical Care Time: Yes Total Critical Care Time: 35 Attestation: I have personally provided critical care time exclusive of time spent on separately billable procedures. Time includes review of lab data, radiology results, discussion with consultants, and monitoring for potential decompensation. Intervention performed as documented. Discharge Plan Discharge Clinical Impression: Pneumonia Patient Disposition: Still a Patient Prescriptions: No Action ibuprofen 200 mg Tablet 200 mg PO DAILY PRN (Reason: Pain) loratadine 10 mg Tablet 10 mg PO DAILY PRN (Reason: Allergy Symptoms) meclizine 25 mg Tablet 25 mg PO TID PRN (Reason: dizziness) Qty: 30 0RF Print Language: Frisian
[2024-07-09] MEDS: Magnesium Sulfate/H2O 2 GM/50 ML PIGGYBACK IV (11:47)
[2024-07-09 12:06] LABS: B Type Natriuretic Peptide < 10 pg/mL (<100)
[2024-07-09 12:08] LABS: Anion Gap 12 (12-20); Blood Urea Nitrogen 7 mg/dL (9-16); Calcium 9.7 mg/dL (8.4-10.2); Carbon Dioxide 26 mmol/L (22-29); Chloride 111 mmol/L (96-108); Creatinine Clr Calc Pharmacy 85.3; Estimated Glomerular Filt Rate > 60; Glucose Random 122 mg/dL (60-115); Potassium 4.3 mmol/L (3.3-5.1); Sodium 145 mmol/L (135-145)
[2024-07-09] MEDS: Albuterol Sulfate 2.5 MG, Albuterol/Iprat 2.5/0.5MG 3 ML 3 ML INHALE (14:24)
[2024-07-09] MEDS: cefTRIAXone sodium 1 GM in 0.9 % Sodium Chloride 50 ML IV (17:04)
[2024-07-09] MEDS: Azithromycin 500 MG in 0.9 % Sodium Chloride 250 ML 125 MG IV (17:04)
--- NOTE | 2024-07-09 17:08 | PM.IMHP ---
History of Present Illness Date of Service: 07/09/24 Attending physician on admission: Mao Navarro Chief Complaint: sob, productive cough HPI:63 y/o F with PMHX multiple sclerosis came with c/o of shortness for breath and wheezing, productive cought for approximately 4 days ago, she felt as she has uri like symptoms of congestion, cough. She states that yesterday she developed wheezing and some shortness for breath. She denies any fevers, chills, chest pain, abdominal pain, nausea, vomiting or diarrhea. No swelling in her lower extremities. She denies history of COPD but has 40 pack year hx of smoking, An ambulance was called, she received Solu-Medrol 125 mg and an updraft-her symptoms did not improve still feel short of breath with minimal exertion. she did not travel recently , says nephew has uri like symptoms. Lab imaging reviewed: Patient has no leukocytosis, BMP normal, chest x-ray:Slight interstitial prominence which may reflect vascular etiology versus infectious/inflammatory etiology ekg-nsr , tropx1 neg. bnp normal In the ED patient received: Nebs, steroids, antibiotic and requested admission for possible suspected pneumonia and possible COPD(undiagnosed) exacerbation Review of Systems Review of Systems: As above. Yes all other systems are reviewed and are negative [facility] Medical History Hypertension Multiple sclerosis Social History Household Members: Spouse Housing: Apartment Do you presently have visiting nurse or other home services: No Patient Tobacco Use Status: Current everyday Tobacco user Tobacco use type: Cigarette Cigarette Packs Per Day: 1 Cigarettes Per Day: 20.0 Years Smoked: 40 Smoked in Last 30 Days: Yes Use of substances other than those prescribed or required for medical reasons: No Advance Directives: No Advance Directives Information Provided: No Do you have a plan to hurt others: No Plan Patient : No service: No Meds Allergies Allergy/AdvReac Type Severity Reaction Status Date / Time No Known Allergies Allergy Verified 07/09/24 10:26 Active Medications: Current Medications Acetaminophen (Acetaminophen 325 Mg Tablet) 650 mg PO Q6H PRN PRN Reason: Pain, Mild (Pain Scale 1-3), fever or headache Albuterol/Ipratropium (Albuterol/Iprat 2.5/0.5mg 3 Ml Ampul.Neb) 3 ml INHALE Q4H [facility] Calcium Carbonate (Calcium Carbonate 750 Mg Tab.Chew) 750 mg PO Q4H PRN PRN Reason: Heartburn Azithromycin 500 mg/ Sodium (Chloride) 250 mls @ 125 mls/hr IV ONCE ONE Stop: 07/09/24 18:18 Last Admin: 07/09/24 17:04 Dose: 125 mls/hr Ceftriaxone Sodium 1 gm/ (Sodium Chloride) 50 mls @ 100 mls/hr IV Q24H [facility] Azithromycin 500 mg/ Sodium (Chloride) 250 mls @ 125 mls/hr IV DAILY [facility] Magnesium Hydroxide (Milk Of Magnesia 30 Ml Oral.Susp) 30 ml PO DAILY PRN PRN Reason: Constipation Melatonin (Melatonin 3 Mg Tablet) 6 mg PO BEDTIME PRN PRN Reason: Insomnia Methylprednisolone Sodium Succinate (Methylprednisolone Sod Succ 40 Mg/Ml Vial) 40 mg IVPUSH BID [facility] Sodium Chloride (0.9 % Sodium Chloride Flush 3 Ml Syringe) 3 ml IVFLUSH QSHIFT [facility] Home Medications ?Medication ?Instructions ?Recorded ?Confirmed ?Last Taken ?Type ibuprofen 200 mg tablet 200 mg PO DAILY PRN Pain 06/06/24 06/06/24 06/06/24 History loratadine 10 mg tablet 10 mg PO DAILY PRN Allergy Symptoms 06/06/24 06/06/24 06/06/24 History Physical Exam Vital Signs and Narrative: Vital Signs: Last Vital Signs Temp 98.7 F 07/09/24 16:35 Pulse 97 07/09/24 16:35 Resp 16 07/09/24 16:35 BP 151/62 H 07/09/24 16:35 Pulse Ox 93 07/09/24 16:35 O2 Del Method Room Air 07/09/24 16:35 BMI result Body Mass Index 29.1 Appearance: Alert.? Oriented X3.? sob Eyes: Pupils equal, round and reactive to light.? Sclera nonicteric.? ENT: Pharynx normal.? Moist mucous membranes. cvs: rrr, [id number] . res: Air entry diminished , has bilateral expiratory wheezing. abd: no rebound or guarding ,nt, bs present. ext pulses present , no cyanosis ,. neuro: axo3 , nonfocal. Results Labs 07/09/24 10:35 07/09/24 11:45 Labs: Laboratory Results - last 24 hr 07/09/24 07/09/24 07/09/24 10:35 10:36 11:45 MCV 93.4 MCH 32.8 MCHC 35.1 H RDW 13.0 Plt Count 207 MPV 10.2 Immature Gran % (Auto) 0.1 Neut % (Auto) 50.2 Lymph % (Auto) 38.7 [place] % (Auto) 7.5 Eos % (Auto) 2.9 Baso % (Auto) 0.6 Lymph # (Auto) 3.3 [place] # (Auto) 0.7 Eos # (Auto) 0.3 Baso # (Auto) 0.1 Abs Immat Gran (auto) 0.01 Absolute Neuts (auto) 4.3 Absolute Nucleated RBC 0.000 Nucleated RBC % (auto) 0.0 Anion Gap 12 Estim Creat Clear Calc 85.3 Estimated GFR > 60 Random Glucose 122 H Calcium 9.7 Troponin I High Sens 3.2 B-Natriuretic Peptide < 10 Influenza Type A (PCR) NEGATIVE Influenza Type B (PCR) NEGATIVE RSV RNA Qual (PCR) NEGATIVE SARS-CoV-2 RNA (RT-PCR) NEGATIVE ECG Attestation: I personally reviewed and interpreted this ECG as follows: (nsr) Imaging Radiologist's Impressions: Impressions Chest X-Ray 07/09/24 10:29 IMPRESSION: 1. Slight interstitial prominence which may reflect vascular etiology versus infectious/inflammatory etiology. 2. Slight right basilar radiopacity. Electronically signed by: Jeffery Singh MD 07/09/2024 12:09 PM EDT RP Assessment and Plan (1) Pneumonia: Qualifiers: Pneumonia type: due to unspecified organism Laterality: unspecified laterality Lung location: unspecified part of lung Qualified Code(s): J18.9 - Pneumonia, unspecified organism Status: Acute Plan 63-year-old female with shortness of breath , productive cough and URI like symptoms for 4 days. Possible undiagnosed acute COPD exacerbation, pneumonia: Patient is symptomatic with minimal exertion Sputum culture, strep and Legionella antigen Blood culture pending, RPP BNP, troponin, EKG normal Plan: Continue nebs, steroids, IV antibiotics ceftriaxone and azithromycin, monitor for respiratory status. History of MS diagnosed 21 years ago -- currently in remission. recent bbpv hx: continue meclizine prn dvt prophylax: s/c lovenox. Ongoing hospitalization need for at least 2 midnight stays:Possible undiagnosed acute COPD exacerbation, pneumonia-needs nebs, steroids, IV antibiotics, and clinical monitoring for respiratory status. Quality Stroke Does the patient have a stroke diagnosis?: No VTE Prior VTE?: No VTE Risk Level:: Medical - moderate - high VTE Device Contraindication: N/A - Device Ordered VTE Drug Contraindication: N/A - Med Ordered
--- NOTE | 2024-07-09 18:08 | PC.NURSE ---
Awaiting 18:00 Lovenox dose per pharmacy
[2024-07-09] MEDS: Loratadine 10 MG TABLET PO (18:09)
[2024-07-09] MEDS: guaiFENesin 200 MG/10 ML 10 ML LIQUID PO (18:09)
[2024-07-09] MEDS: Enoxaparin Sodium 40 MG/0.4 ML SYRINGE SUBCUT (19:23)
--- NOTE | 2024-07-09 19:28 | PC.NURSE ---
assumed care of pt at 1900. pt resting comfortably on stretcher , no apparent distress. denies acute pain or sob. antibiotic complete. pt requesting food, given turkey sandwich and jello. call young within reach, plan for pt to be admitted to hospital for further evaluation of dyspnea.
--- NOTE | 2024-07-09 19:37 | PHA.MEDREC ---
Addendum entered by Tony Tolentino [facility] 07/09/24 20:18: MED REC CHECKED BY [facility] Original Note: Pharmacy Consult ? Medication Reconciliation Pharmacy has completed the medication reconciliation. Patient confirmed she is not taking any medications.
[2024-07-09] MEDS: Albuterol/Iprat 2.5/0.5MG 3 ML AMPUL.NEB INHALE (21:11)
[2024-07-09] MEDS: methylPREDNISolone Sod Succ 40 MG/ML VIAL IVPUSH (21:30)
[2024-07-09] MEDS: 0.9 % Sodium Chloride Flush 3 ML SYRINGE IVFLUSH (21:31)
[2024-07-10] VITALS (12 sets, daily range): BP systolic 126–148; BP diastolic 56–66; PULSE 60–104; RESP 14–20; TEMP 35.9–36.7; O2SAT 90–98
[2024-07-10] MEDS: Albuterol/Iprat 2.5/0.5MG 3 ML AMPUL.NEB INHALE ×5 (03:02→18:34)
[2024-07-10] MEDS: guaiFENesin 200 MG/10 ML 10 ML LIQUID PO ×3 (05:23→17:26)
[2024-07-10] MEDS: methylPREDNISolone Sod Succ 40 MG/ML VIAL IVPUSH ×2 (08:18→20:12)
[2024-07-10] MEDS: 0.9 % Sodium Chloride Flush 3 ML SYRINGE IVFLUSH ×3 (08:19→20:13)
[2024-07-10] MEDS: Loratadine 10 MG TABLET PO (08:19)
[2024-07-10 09:05] LABS: Adenovirus PCR Not Detected (Not Detect.); Bordetella parapertussis PCR Not Detected (Not Detect.); Bordetella pertussis PCR Not Detected (Not Detect.); Chlamydia pneumoniae PCR Not Detected (Not Detect.); Coronavirus 229E PCR Not Detected (Not Detect.); Coronavirus HKU1 PCR Not Detected (Not Detect.); Coronavirus NL63 PCR Not Detected (Not Detect.); Coronavirus OC43 PCR Not Detected (Not Detect.); Human metapneumovirus PCR Not Detected (Not Detect.); Influenza A PCR Not Detected (Not Detect.); Influenza B PCR Not Detected (Not Detect.); Mycoplasma pneumoniae PCR Not Detected (Not Detect.); Parainfluenza 1 PCR Not Detected (Not Detect.); Parainfluenza 2 PCR Not Detected (Not Detect.); Parainfluenza 3 PCR Not Detected (Not Detect.); Parainfluenza 4 PCR Not Detected (Not Detect.); RSV PCR Not Detected (Not Detect.); Rhino/Enterovirus PCR Detected (Not Detect.)
--- NOTE | 2024-07-10 09:13 | MHC.CM.PN ---
Home self care is the tentative plan;Patient is listed as, self pay, and a referral was made today to [facility]. CM has initiated and will follow for dc planning. Patient lives in an apartment with her and typically requires no DME nor services and has been working. will transport to home.
[2024-07-10 10:04] LABS: SARS-CoV-2 PCR Not Detected (Not Detect.)
--- NOTE | 2024-07-10 12:33 | HO.PM.IMPN ---
Subjective Subjective Date of Service: 07/10/24 Interval History: Complaining of shortness of breath with talking and with exertion, complaining of cough productive of clearish phlegm denies fever, no chills, no sick contacts, no symptoms of allergies, has a cat for greater than 1 year, no other acute events overnight. Review of Systems All other system reviewed and negative Physical Exam Vital Signs: Vital Signs: Last Vital Signs Temp 98.1 F 07/10/24 11:12 Pulse 77 07/10/24 11:39 Resp 18 07/10/24 11:39 BP 141/64 H 07/10/24 11:12 Pulse Ox 94 07/10/24 11:12 O2 Del Method Room Air 07/10/24 11:12 BMI result Body Mass Index 29.1 Const: Other: General resting comfortably in no acute distress. No nystagmus Neck no JVD. CVS regular rate rhythm, Respiratory lungs bilateral expiratory rhonchi, no crackles, no distress Gastrointestinal abdomen soft, non tender, bowel sounds audible, no guarding , no rigidity. Extremities no edema. Neuro non focal Skin no rash Objective Data Active Medications Acetaminophen (Acetaminophen 325 Mg Tablet) 650 mg PO Q6H PRN PRN Reason: Pain, Mild (Pain Scale 1-3), fever or headache Albuterol/Ipratropium (Albuterol/Iprat 2.5/0.5mg 3 Ml Ampul.Neb) 3 ml INHALE RQ4H [facility] Last Admin: 07/10/24 11:39 Dose: 3 ml Documented By: ESHA Calcium Carbonate (Calcium Carbonate 750 Mg Tab.Chew) 750 mg PO Q4H PRN PRN Reason: Heartburn Enoxaparin Sodium (Enoxaparin Sodium 40 Mg/0.4 Ml Syringe) 40 mg SUBCUT Q24H [facility] Last Admin: 07/09/24 19:23 Dose: 40 mg Documented By: BRANDIE Guaifenesin (Guaifenesin 200 Mg/10 Ml 10 Ml Liquid) 10 ml PO Q6H [facility] Last Admin: 07/10/24 05:23 Dose: 10 ml Documented By: MIRNA Ceftriaxone Sodium 1 gm/ (Sodium Chloride) 50 mls @ 100 mls/hr IV Q24H [facility] Azithromycin 500 mg/ Sodium (Chloride) 250 mls @ 125 mls/hr IV Q24H [facility] Loratadine (Loratadine 10 Mg Tablet) 10 mg PO DAILY [facility] Last Admin: 07/10/24 08:19 Dose: 10 mg Documented By: BEN Magnesium Hydroxide (Milk Of Magnesia 30 Ml Oral.Susp) 30 ml PO DAILY PRN PRN Reason: Constipation Meclizine HCl (Meclizine Hcl 25 Mg Tablet) 25 mg PO Q6H PRN PRN Reason: dizziness Melatonin (Melatonin 3 Mg Tablet) 6 mg PO BEDTIME PRN PRN Reason: Insomnia Methylprednisolone Sodium Succinate (Methylprednisolone Sod Succ 40 Mg/Ml Vial) 40 mg IVPUSH BID [facility] Last Admin: 07/10/24 08:18 Dose: 40 mg Documented By: BEN Sodium Chloride (0.9 % Sodium Chloride Flush 3 Ml Syringe) 3 ml IVFLUSH QSHIFT [facility] Last Admin: 07/10/24 08:19 Dose: 3 ml Documented By: BEN Labs 07/09/24 10:35 07/09/24 11:45 Labs: Laboratory Results - last 24 hr 07/09/24 17:21 Respiratory Panel [place] See Note Adenovirus (Rapid PCR) Not Detected B.pert (TEM-PCR) Not Detected B.parapertussis DNA PCR Not Detected C. pneumoniae DNA (PCR) Not Detected Coronavirus OC43 (PCR) Not Detected Coronavirus HKU1 (PCR) Not Detected Coronavirus 229E (PCR) Not Detected Coronavirus NL63 (PCR) Not Detected Human Metapneumovir PCR Not Detected Influenza A (RT-PCR) Not Detected Influenza B (RT-PCR) Not Detected M. pneumoniae (PCR) Not Detected Parainfluenza 1 (PCR) Not Detected Parainfluenza 2 (PCR) Not Detected Parainfluenza 3 (PCR) Not Detected Parainfluenza 4 (PCR) Not Detected RSV (PCR) Not Detected Entero/Rhino (PCR) Detected A SARS-CoV-2 RNA (RT-PCR) Not Detected Assessment and Plan (1) Pneumonia: Status: Acute Plan 63-year-old female admitted due to shortness of breath , productive cough and URI like symptoms for 4 days. Possible undiagnosed acute COPD exacerbation, acute bronchitis vs early pneumonia: Persistent shortness of breath and cough, no fevers Chest x-ray showed slight interstitial prominence may reflect vascular versus infectious/inflammatory etiology Sputum culture, strep and Legionella antigen pending Blood culture pending, RPP positive for entero/rhino virus BNP, troponin, EKG normal Continue IV ceftriaxone/azithromycin day 2, IV steroids and nebulizer Continue symptomatic treatment Tobacco use disorder Counseling done, patient declined nicotine patch History of MS diagnosed 21 years ago -- currently in remission. recent bbpv hx: continue meclizine prn dvt prophylax: s/c lovenox. Ongoing hospitalization need for possible undiagnosed acute COPD exacerbation, pneumonia-needs nebs, steroids, IV antibiotics, and clinical monitoring for respiratory status. Quality Stroke Does the patient have a stroke diagnosis?: No VTE Prior VTE?: No VTE Risk Level:: Medical - moderate - high VTE Device Contraindication: N/A - Device Ordered VTE Drug Contraindication: N/A - Med Ordered
[2024-07-10] MEDS: Azithromycin 500 MG in 0.9 % Sodium Chloride 250 ML 125 MG IV (15:28)
[2024-07-10] MEDS: Enoxaparin Sodium 40 MG/0.4 ML SYRINGE SUBCUT (17:26)
[2024-07-10] MEDS: cefTRIAXone sodium 1 GM in 0.9 % Sodium Chloride 50 ML IV (17:27)
[2024-07-11] VITALS (10 sets, daily range): BP systolic 120–147; BP diastolic 56–77; PULSE 76–99; RESP 16–20; TEMP 35.9–36.4; O2SAT 92–99
[2024-07-11] MEDS: Albuterol/Iprat 2.5/0.5MG 3 ML AMPUL.NEB INHALE ×4 (07:19→18:37)
[2024-07-11] MEDS: methylPREDNISolone Sod Succ 40 MG/ML VIAL IVPUSH ×2 (09:51→20:11)
[2024-07-11] MEDS: 0.9 % Sodium Chloride Flush 3 ML SYRINGE IVFLUSH ×2 (09:51→17:54)
[2024-07-11] MEDS: Loratadine 10 MG TABLET PO (09:51)
[2024-07-11] MEDS: guaiFENesin 200 MG/10 ML 10 ML LIQUID PO ×2 (09:51→17:46)
--- NOTE | 2024-07-11 16:37 | HO.PM.IMPN ---
Subjective Subjective Date of Service: 07/11/24 Interval History: Feeling better this morning still with shortness of breath, cough and weakness. No fevers no chills, tolerating diet. Review of Systems All other system reviewed and are negative Physical Exam Vital Signs: Vital Signs: Last Vital Signs Temp 97.6 F 07/11/24 15:56 Pulse 84 07/11/24 15:56 Resp 19 07/11/24 15:56 BP 138/77 07/11/24 15:56 Pulse Ox 93 07/11/24 15:56 O2 Del Method Room Air 07/11/24 15:56 BMI result Body Mass Index 29.1 Const: Other: General resting comfortably in no acute distress. No nystagmus Neck no JVD. CVS regular rate rhythm, Respiratory lungs bilateral expiratory rhonchi, no crackles, no distress Gastrointestinal abdomen soft, non tender, bowel sounds audible, no guarding , no rigidity. Extremities no edema. Neuro non focal Skin no rash Objective Data Active Medications Acetaminophen (Acetaminophen 325 Mg Tablet) 650 mg PO Q6H PRN PRN Reason: Pain, Mild (Pain Scale 1-3), fever or headache Albuterol/Ipratropium (Albuterol/Iprat 2.5/0.5mg 3 Ml Ampul.Neb) 3 ml INHALE RQ4H [facility] Last Admin: 07/11/24 15:23 Dose: 3 ml Documented By: SAAD Calcium Carbonate (Calcium Carbonate 750 Mg Tab.Chew) 750 mg PO Q4H PRN PRN Reason: Heartburn Enoxaparin Sodium (Enoxaparin Sodium 40 Mg/0.4 Ml Syringe) 40 mg SUBCUT Q24H [facility] Last Admin: 07/10/24 17:26 Dose: 40 mg Documented By: BEN Guaifenesin (Guaifenesin 200 Mg/10 Ml 10 Ml Liquid) 10 ml PO Q6H [facility] Last Admin: 07/11/24 09:51 Dose: 10 ml Documented By: REBEKAH Ceftriaxone Sodium 1 gm/ (Sodium Chloride) 50 mls @ 100 mls/hr IV Q24H [facility] Last Infusion: 07/10/24 17:57 Dose: Infused Documented By: BEN Azithromycin 500 mg/ Sodium (Chloride) 250 mls @ 125 mls/hr IV Q24H [facility] Last Infusion: 07/10/24 17:36 Dose: Infused Documented By: BEN Loratadine (Loratadine 10 Mg Tablet) 10 mg PO DAILY [facility] Last Admin: 07/11/24 09:51 Dose: 10 mg Documented By: REBEKAH Magnesium Hydroxide (Milk Of Magnesia 30 Ml Oral.Susp) 30 ml PO DAILY PRN PRN Reason: Constipation Meclizine HCl (Meclizine Hcl 25 Mg Tablet) 25 mg PO Q6H PRN PRN Reason: dizziness Melatonin (Melatonin 3 Mg Tablet) 6 mg PO BEDTIME PRN PRN Reason: Insomnia Methylprednisolone Sodium Succinate (Methylprednisolone Sod Succ 40 Mg/Ml Vial) 40 mg IVPUSH BID [facility] Last Admin: 07/11/24 09:51 Dose: 40 mg Documented By: REBEKAH Sodium Chloride (0.9 % Sodium Chloride Flush 3 Ml Syringe) 3 ml IVFLUSH QSHIFT [facility] Last Admin: 07/11/24 09:51 Dose: 3 ml Documented By: REBEKAH Labs 07/09/24 10:35 07/09/24 11:45 Microbiology Microbiology Results: Microbiology 07/09/24 16:45 Blood Culture - Preliminary Blood - Venous No growth after 24 hours. 07/09/24 16:45 Blood Culture - Preliminary Blood - Venous No growth after 24 hours. Assessment and Plan (1) Pneumonia: Status: Acute Plan 63-year-old female admitted due to shortness of breath , productive cough and URI like symptoms for 4 days. Possible undiagnosed acute COPD exacerbation, acute viral bronchitis vs early pneumonia: Persistent shortness of breath and cough, no fevers Chest x-ray showed slight interstitial prominence may reflect vascular versus infectious/inflammatory etiology Blood culture negative times 24 hours, RPP positive for entero/rhino virus BNP, troponin, EKG normal Continue IV ceftriaxone/azithromycin day 3, cont IV steroids and nebulizer, will transition to by mouth steroids at a.m. Continue symptomatic treatment Recommend out of bed to chair and ambulation Tobacco use disorder Counseling done, patient declined nicotine patch History of MS diagnosed 21 years ago -- currently in remission. recent bbpv hx: continue meclizine prn dvt prophylax: s/c lovenox. Ongoing hospitalization need for possible undiagnosed acute COPD exacerbation, pneumonia-needs nebs, steroids, IV antibiotics, and clinical monitoring for respiratory status. Quality Stroke Does the patient have a stroke diagnosis?: No VTE Prior VTE?: No VTE Risk Level:: Medical - moderate - high VTE Device Contraindication: N/A - Device Ordered VTE Drug Contraindication: N/A - Med Ordered
[2024-07-11] MEDS: Azithromycin 500 MG in 0.9 % Sodium Chloride 250 ML 125 MG IV (17:46)
[2024-07-11] MEDS: Enoxaparin Sodium 40 MG/0.4 ML SYRINGE SUBCUT (17:46)
[2024-07-11] MEDS: cefTRIAXone sodium 1 GM in 0.9 % Sodium Chloride 50 ML IV (20:12)
[2024-07-12 03:22] VITALS: BP 136/62; PULSE 75; RESP 20; TEMP 36.2; O2SAT 92
[2024-07-12] MEDS: guaiFENesin 200 MG/10 ML 10 ML LIQUID PO ×2 (05:42→11:40)
[2024-07-12] MEDS: Albuterol/Iprat 2.5/0.5MG 3 ML AMPUL.NEB INHALE ×2 (07:31→11:24)
[2024-07-12 07:32] VITALS: PULSE 75; RESP 20
[2024-07-12 08:00] VITALS: BP 145/66; PULSE 77; RESP 20; TEMP 36.4; O2SAT 92
[2024-07-12] MEDS: Loratadine 10 MG TABLET PO (09:16)
[2024-07-12] MEDS: methylPREDNISolone Sod Succ 40 MG/ML VIAL IVPUSH (09:16)
[2024-07-12] MEDS: 0.9 % Sodium Chloride Flush 3 ML SYRINGE IVFLUSH (09:16)
--- NOTE | 2024-07-12 10:23 | P.DS_ITS ---
DS: Providers Provider Date of Service: 07/12/24 Date of admission: 07/09/24 17:02 Date of discharge: 07/12/24 Primary care physician: Brian Cam MD DS: Diagnosis Discharge Diagnosis (1) Pneumonia: Status: Acute DS: Summary Hospital Course Hospital Course: History of presenting illness: Date of Service: 07/09/24 Attending physician on admission: Mao Navarro Chief Complaint: sob, productive cough HPI:63 y/o F with PMHX multiple sclerosis came with c/o of shortness for breath and wheezing, productive cought for approximately 4 days ago, she felt as she has uri like symptoms of congestion, cough. She states that yesterday she devel oped wheezing and some shortness for breath. She denies any fevers, chills, chest pain, abdominal pain, nausea, vomiting or diarrhea. No swelling in her lower extremities. She denies history of COPD but has 40 pack year hx of smoking, An ambulance was called, she received Solu-Medrol 125 mg and an updraft-her symptoms did not improve still feel short of breath with minimal exertion. she did not travel recently , says nephew has uri like symptoms. Lab imaging reviewed: Patient has no leukocytosis, BMP normal, chest x-ray: Slight interstitial prominence which may reflect vascular etiology versus infectious/inflammatory etiology ekg-nsr , tropx1 neg. bnp normal In the ED patient received: Nebs, steroids, antibiotic and requested admission for possible suspected pneumonia and possible COPD(undiagnosed) exacerbation. Hospital course: 63-year-old female admitted due to shortness of breath , productive cough and URI like symptoms for 4 days, and admitted to hospital with a diagnosis of Possible undiagnosed acute COPD exacerbation, acute viral bronchitis vs early pneumonia, Chest x-ray showed slight interstitial prominence may reflect vascular versus infectious/inflammatory etiology, and slight right basilar radiopacity, respiratory viral panel positive for entero/rhino virus patient treated with IV ceftriaxone,iv azithromycin, IV steroids and nebulizer treatment, patient responded well to above treatment, currently oxygenating 92- 93% on room air, shortness of breath and cough has significantly improved, no fevers, blood cultures x2 showed no growth, BNP, troponin and EKG were normal, patient has been strongly advised to abstain from smoking ,she declined nicotine patch, she is being discharged home on tapering dose of prednisone, albuterol as needed for shortness of breath and Breo ,she is recommended outpatient follow-up with primary care physician for close pulmonary follow-up and outpatient pulmonology consult for possible COPD. History of MS diagnosed 21 years ago -- currently in remission. recent bbpv hx: Recommend to continue meclizine prn Time Attestation Discharge Coordination Time (in mins): 36 Quality: Safe Use of Opioids Does Pt have an Active Cancer Diagnosis on the Problem List?: No Quality: Stroke Does the patient have a stroke diagnosis?: No Physical Exam Vital Signs: Vital Signs: Last Vital Signs Temp 97.6 F 07/12/24 08:00 Pulse 77 07/12/24 08:00 Resp 20 07/12/24 08:00 BP 145/66 H 07/12/24 08:00 Pulse Ox 92 07/12/24 08:00 O2 Del Method Room Air 07/12/24 08:00 BMI result Body Mass Index 29.1 Const: Other: General resting comfortably in no acute distress. No nystagmus Neck no JVD. CVS regular rate rhythm, Respiratory lungs few expiratory rhonchi, no crackles, no distress Gastrointestinal abdomen soft, non tender, bowel sounds audible, no guarding , no rigidity. Extremities no edema. Neuro non focal Skin no rash DS: Data Data Completed and Pending Labs on day of discharge: Preliminary micro results at discharge 07/09/24 16:45 Blood Culture - Preliminary Blood - Venous No growth after 48 hours. 07/09/24 16:45 Blood Culture - Preliminary Blood - Venous No growth after 48 hours. Discharge Plan Discharge Anticipated Discharge Date/Time: 07/12/24 10:17 Patient Disposition: Home, Self-Care Discharge Diagnosis: Viral bronchitis/early pneumonia Tobacco use disorder Referrals: Brian Cam MD [Primary Care Provider] - 1 Week Discharge Medications: New albuterol sulfate [Ventolin HFA] 90 mcg/actuation Hfa Aerosol Inhaler 2 puff inhalation RQ4H PRN (Reason: sob) Qty: 1 0RF fluticasone furoate-vilanterol [Breo Ellipta] 100-25 mcg/dose Blister With Device 1 inh inhalation RDAILY Qty: 60 0RF prednisone 20 mg tablet 20 mg PO DAILY Qty: 7 0RF Rx Instructions: Take prednisone 20 mg 1 tablet daily for 5 days with food Then prednisone 20 mg 1/2 tab daily for 5 days Discharge Orders: Discharge Order (Routine); Ordered 07/12/24 Ordered By: Miguel Delong Diet: Advance to usual diet Activity on Discharge: As tolerated Stand Alone Forms: Patient Portal Discharge page Print Language: Finnish Care Plan Goals: Take prednisone as prescribed Use albuterol 2 puffs as needed for shortness of breath every 4h Use Breo 1 puff daily Cough medication as needed q.6 hours Health Concerns: Strongly recommend to abstain from smoking Plan of Treatment: Outpatient follow-up with PCP call for appointment Assessment: As above
--- NOTE | 2024-07-12 10:32 | MHC.CM.PN ---
PT CLEARED TO DC HOME TODAY WITH NO SERVICES VIA PRIVATE TRANSPORT
[2024-07-12 11:10] VITALS: BP 136/75; PULSE 77; RESP 20; TEMP 36.8; O2SAT 92
[2024-07-12 11:24] VITALS: PULSE 77; RESP 20; O2SAT 94
[2024-07-12] MEDS: Azithromycin 500 MG TABLET PO (11:40)
== END 2024-07-12 12:00 | disposition home or self-care (01) | DRG 190 ==
LOC: HO.ED 16:18 → HO.EDOVER 17:16 → HO.IMC 19:45
PROVIDERS: Physician Assistant Medical; Admitting Provider Internal Medicine; Emergency Provider Emergency Medicine; PCP Internal Medicine; Visit Provider Hospitalist
DX: J44.0 Chronic obstructive pulmonary disease with (acute) lower respiratory infection (principal); J18.9 Pneumonia, unspecified organism; J44.1 Chronic obstructive pulmonary disease with (acute) exacerbation; J20.8 Acute bronchitis due to other specified organisms; G35 Multiple sclerosis; F17.210 Nicotine dependence, cigarettes, uncomplicated; Z71.6 Tobacco abuse counseling; Z20.822 Contact with and (suspected) exposure to COVID-19; B97.89 Other viral agents as the cause of diseases classified elsewhere
CPT/HCPCS: 0241U; 36415; 71045; 80048; 83880; 84484; 85025; 87040; 87633; 93005; 94640; 99285; J0456; J0696; J1650; J2919; J3475

== ENCOUNTER → 2024-07-09 17:02 | Outpatient (BNV) | payer SELFPAY | PROVIDERS: Admitting Provider Internal Medicine; Emergency Provider Emergency Medicine; PCP Internal Medicine; Visit Provider Internal Medicine | DX: J18.9 Pneumonia, unspecified organism (principal) | CPT/HCPCS: 99223; 99232; 99239 ==

== ENCOUNTER 2025-03-02 08:10 | Emergency (ER) | payer OTHER, SELFPAY ==
--- NOTE | ~2025-03-02 | XR_ITS ---
CLINICAL HISTORY: sob 2 view chest x-ray Comparison: CR/SR - XR CHEST 1V - 07/09/24 10:48 EDT Findings: There is no focal pneumonia. There is prominence of the bronchovascular markings suggestive of a viral process. Normal size heart. No acute fracture. IMPRESSION: 1. There is no focal pneumonia. There is prominence of the bronchovascular markings suggestive of a viral process. This document has been electronically signed by: Kike Merida MD on 03/02/2025 09:02:53
[2025-03-02 08:17] VITALS: BP 198/74; PULSE 100; RESP 19; TEMP 36.6; O2SAT 92; BMI 28.3
--- NOTE | 2025-03-02 08:52 | ED.URI ---
HPI - URI/Sore Throat General Chief Complaint: Upper Respiratory Symptoms Stated Complaint: diff breathing Time Seen by Provider: 03/02/25 08:35 History of Present Illness HPI Narrative: Patient is a 64-year-old female with a history of COPD smoker presents today complaining that she is coughing upper respiratory symptoms generalized malaise. Related Data Previous Rx's ?Medication ?Instructions ?Recorded albuterol sulfate 90 mcg/actuation 2 puff inhalation RQ4H PRN sob #1 g 07/12/24 aerosol inhaler (Ventolin HFA) fluticasone furoate 100 1 inh inhalation RDAILY #60 ea 07/12/24 mcg-vilanterol 25 mcg/dose inhalation powder (Breo Ellipta) prednisone 20 mg tablet 20 mg PO DAILY #7 tabs 07/12/24 albuterol sulfate 90 mcg/actuation 2 puff inhalation Q6H PRN 03/02/25 aerosol inhaler shortness of breath or wheezing #8.5 grams azithromycin 250 mg tablet See Rx Instructions PO .COMPLEX 03/02/25 upper resp infection #6 tabs prednisone 20 mg tablet 40 mg (2 x 20 mg) PO DAILY #10 tabs 03/02/25 Allergies Allergy/AdvReac Type Severity Reaction Status Date / Time No Known Allergies Allergy Verified 03/02/25 08:19 Review of Systems Review of Systems: Positive coughing upper respiratory symptoms positive weakness Yes all other systems are reviewed and are negative PMFSH Past Medical History Attestation statement: The following information was validated with the patient. Medical History Vertigo Hypertension Multiple sclerosis Social History Social History Household Members: Spouse Housing: Apartment Do you presently have visiting nurse or other home services: No Alcohol intake: never Patient Tobacco Use Status: Current everyday Tobacco user Tobacco use type: Cigarette Cigarette Packs Per Day: 1 Cigarettes Per Day: 20.0 Years Smoked: 40 Smoked in Last 30 Days: Yes Second Hand Smoke Exposure: No Advance Directives: No Advance Directives Information Provided: No Do you have a plan to hurt others: No Plan service: No Physical Exam Vital Signs: Vital Signs: Last Vital Signs Temp 97.4 F 03/02/25 09:29 Pulse 114 H 03/02/25 09:29 Resp 18 03/02/25 09:29 BP 163/78 H 03/02/25 09:29 Pulse Ox 95 03/02/25 09:29 O2 Del Method Room Air 03/02/25 09:29 BMI result Body Mass Index 28.3 Appearance: Alert. Oriented X3. No acute distress. Eyes: Pupils equal, round and reactive to light. ENT: Pharynx normal. Neck: Normal inspection. Neck supple. No lymph nodes noted. No crepitus CVS: Normal heart rate and rhythm. Pulses normal. Normal S1 and S2 Respiratory: expiratory wheezing noted bilaterally diminished breath sounds bilaterally Abdomen: Soft and nontender. No rigidity. No distention. good BS x4 Skin: Skin warm and dry. Normal skin color. Normal skin turgor. Extremities: No lower extremity edema. Neurovascular intact to all extremities. No Lacerations. No Rash Neuro: Oriented X 3. No motor deficit. No sensory deficit. Moving all extermities. No slurred speech Medications Administered Discontinued Medications Generic Name Dose Route Start Last Admin Trade Name Freq PRN Reason Stop Dose Admin Albuterol Sulfate 5 mg/ 0 mg 03/02/25 08:53 03/02/25 08:57 Albuterol/Ipratropium 3 ml INHALE 03/02/25 08:54 1 each ONCE ONE Administration Prednisone 60 mg 03/02/25 08:44 03/02/25 09:27 Prednisone 20 Mg Tablet PO 03/02/25 08:45 60 mg ONCE ONE Administration Medical Decision Making Medical Decision Making [facility] Narrative: patient has a long history of COPD never been hospitalized in the past positive coughing upper respiratory symptoms ongoing for 5 days. COVID flu RSV was sent steroid and neb treatment was given. My interpretation patient's chest x-ray is grossly negative there is no pneumonia no pneumothorax. Patient given neb treatments. Steroids. Symptomatically feels improved. COVID flu RSV is negative ambulates with normal gait no hypoxia. Eating comfortably on the side of the bed on reexamination still some mild wheezing but improved aeration. Patient wants to go home will discharge home close follow-up on an outpatient basis explained to patient need to stop smoking patient states understandi Differential Diagnosis Differential Diagnoses: The differential diagnosis associated with the presentation includes Asthma, COPD, pneumonia Admission/Observation Consideration of admission/observation: Escalation of care including admission/observation considered breathing improved Lab Data [facility] Lab Attestation statement: I reviewed the patient's lab results. Labs: Lab Results 03/02/25 Range/Units 08:31 Influenza Type A (PCR) NEGATIVE (Negative) Influenza Type B (PCR) NEGATIVE (Negative) RSV RNA Qual (PCR) NEGATIVE (Negative) SARS-CoV-2 RNA (RT-PCR) NEGATIVE (Negative) Independent Interpretation I performed an independent interpretation of an: Plain X-Ray ( my interpretation patient's chest x-ray negative pneumonia pneumothorax) Radiology Impression Discussion of test interpretation with radiology: I have reviewed the radiologist's reading. Chronic Conditions COPD Discharge Plan Discharge Clinical Impression: Upper respiratory infection, COPD (chronic obstructive pulmonary disease) Patient Disposition: Home, Self-Care Instructions: COPD (Chronic Obstructive Pulmonary Disease) (DC) Prescriptions: New albuterol sulfate 90 mcg/actuation HFA aerosol inhaler 2 puff inhalation Q6H PRN (Reason: shortness of breath or wheezing) Qty: 8.5 0RF azithromycin 250 mg tablet See Rx Instructions .ROUTE .COMPLEX Qty: 6 0RF Rx Instructions: take 500 mg today (day 1), then 250 mg for 4 days (days 2-5) prednisone 20 mg tablet 40 mg PO DAILY Qty: 10 0RF No Action albuterol sulfate [Ventolin HFA] 90 mcg/actuation Hfa Aerosol Inhaler 2 puff inhalation RQ4H PRN (Reason: sob) Qty: 1 0RF fluticasone furoate-vilanterol [Breo Ellipta] 100-25 mcg/dose Blister With Device 1 inh inhalation RDAILY Qty: 60 0RF prednisone 20 mg tablet 20 mg PO DAILY Qty: 7 0RF Rx Instructions: Take prednisone 20 mg 1 tablet daily for 5 days with food Then prednisone 20 mg 1/2 tab daily for 5 days Referrals: Physician,Unknown J [Primary Care Provider] - 03/05/25 Print Language: [place]
[2025-03-02 08:54] VITALS: PULSE 100; RESP 15; O2SAT 97
[2025-03-02] MEDS: Albuterol Sulfate 5 MG, Albuterol/Iprat 2.5/0.5MG 3 ML 3 ML INHALE (08:57)
[2025-03-02] MEDS: predniSONE 20 MG TABLET 60 MG PO (09:27)
[2025-03-02 09:28] LABS: Influenza A PCR NEGATIVE (Negative); Influenza B PCR NEGATIVE (Negative); Resp Syncy Virus RNA Qual PCR NEGATIVE (Negative); SARS COV2 PCR INHOUSE NEGATIVE (Negative)
[2025-03-02 09:29] VITALS: BP 163/78; PULSE 114; RESP 18; TEMP 36.3; O2SAT 95; O2SAT 97
--- NOTE | 2025-03-02 09:33 | PC.NURSE ---
spking full sentences. slight exp wheeze and good air movement after neb. skin pwd. NAD
[2025-03-02 10:22] VITALS: BP 163/78; PULSE 114; RESP 18; TEMP 36.3; O2SAT 95
== END 2025-03-02 10:23 | disposition home or self-care (01) ==
PROVIDERS: Emergency Provider Emergency Medicine Emergency Medical Services
DX: J06.9 Acute upper respiratory infection, unspecified (principal); R06.02 Shortness of breath; R05.9 Cough, unspecified; J44.9 Chronic obstructive pulmonary disease, unspecified; F17.210 Nicotine dependence, cigarettes, uncomplicated; Z03.818 Encounter for observation for suspected exposure to other biological agents ruled out
CPT/HCPCS: 0241U; 71046; 94640; 99284

== ENCOUNTER → 2025-03-02 08:21 | Outpatient (BNV) | payer OTHER, SELFPAY | PROVIDERS: Emergency Provider Emergency Medicine Emergency Medical Services; Visit Provider Radiology Diagnostic Radiology | DX: R06.02 Shortness of breath (principal) | CPT/HCPCS: 71046 ==

== ENCOUNTER 2025-03-12 06:43 | Emergency (ER) | payer OTHER, SELFPAY ==
--- NOTE | ~2025-03-12 | XR_ITS ---
EXAMINATION: XR CHEST CLINICAL INFORMATION: shortness of breath COMPARISON: March 02, 2025. TECHNIQUE: Frontal view of the chest was obtained. FINDINGS: Pulmonary reticular pattern. No gross consolidation, pleural effusion or thorax. No hyperinflation. Cardiomediastinal silhouette size is normal. Calcified plaque thoracic aorta. S-shaped curvature of the thoracolumbar spine which could be positional. XR/XR chest 1V IMPRESSION: Consider acute small airway inflammatory processes versus mild interstitial edema. Electronically signed by: Carlin Marin MD 03/12/2025 07:48 AM EDT
[2025-03-12 06:51] VITALS: BP 191/88; PULSE 101; RESP 18; TEMP 36.4; O2SAT 94; BMI 29.4
[2025-03-12] MEDS: predniSONE 20 MG TABLET 60 MG PO (07:36)
--- NOTE | 2025-03-12 07:37 | ED_ITS ---
HPI - SOB/Dyspnea General Chief Complaint: Dyspnea Stated Complaint: COPD Time Seen by Provider: 03/12/25 06:58 History of Present Illness ED Provider: Say Miller MD HPI Narrative: Mary is a 64-year-old female with hypertension, hypercholesterolemia, COPD recent diagnosis with 1, 2 day hospitalization several months ago. She reports a recent COPD exacerbation treated with steroids antibiotics proximally 2 weeks ago she has had recurrent dyspnea and audible wheeze for about 1-2 days. Denies fever no chest pain no leg swelling no history of DVT or PE. No other associated symptoms Related Data Previous Rx's ?Medication ?Instructions ?Recorded albuterol sulfate 90 mcg/actuation 2 puff inhalation RQ4H PRN sob #1 g 07/12/24 aerosol inhaler (Ventolin HFA) fluticasone furoate 100 1 inh inhalation RDAILY #60 ea 07/12/24 mcg-vilanterol 25 mcg/dose inhalation powder (Breo Ellipta) prednisone 20 mg tablet 20 mg PO DAILY #7 tabs 07/12/24 albuterol sulfate 90 mcg/actuation 2 puff inhalation Q6H PRN 03/02/25 aerosol inhaler shortness of breath or wheezing #8.5 grams azithromycin 250 mg tablet See Rx Instructions PO .COMPLEX 03/02/25 upper resp infection #6 tabs prednisone 20 mg tablet 40 mg (2 x 20 mg) PO DAILY #10 tabs 03/02/25 albuterol sulfate 2.5 mg/3 mL 2.5 mg (3 mL) inhalation Q4-6H PRN 03/12/25 (0.083 %) solution for nebulization bronchospasm #90 mL prednisone 50 mg tablet 50 mg PO DAILY 4 days #4 tabs 03/12/25 Allergies Allergy/AdvReac Type Severity Reaction Status Date / Time No Known Allergies Allergy Verified 03/12/25 06:52 [facility] Past Medical History Medical History Vertigo Hypertension Multiple sclerosis Social History Social History Household Members: Spouse Housing: Apartment Do you presently have visiting nurse or other home services: No Alcohol intake: never Patient Tobacco Use Status: Current everyday Tobacco user Tobacco use type: Cigarette Cigarette Packs Per Day: 1 Cigarettes Per Day: 20.0 Years Smoked: 40 Smoked in Last 30 Days: No Second Hand Smoke Exposure: No Use of substances other than those prescribed or required for medical reasons: No Advance Directives: No Advance Directives Information Provided: Yes Do you have a plan to hurt others: No Plan Patient : No service: No Physical Exam Vital Signs: Vital Signs: Last Vital Signs Temp 97.9 F 03/12/25 09:18 Pulse 90 03/12/25 09:18 Resp 18 03/12/25 09:18 BP 157/82 H 03/12/25 09:18 Pulse Ox 94 03/12/25 09:18 O2 Del Method Room Air 03/12/25 09:18 BMI result Body Mass Index 29.4 Const: Other: EXAM: Gen: Alert, awake, well appearing, well hydrated. Head: Atraumatic Eyes: Anicteric, Normal conjunctiva. ENT: Moist mucosa, no pallor. Neck: Supple. Respiratory: full sentences, mildly dyspneic appearing. comfortable. Coarse wheeze expiratory only Cardiovascular: Regular rate and rhythm. No murmurs or rub. Well perfused periphery, warm extremities. No edema. Abdominal: Soft, no objective distension. No palpable masses or obvious organomegaly. No focal tenderness, no guarding, no rebound tenderness or other peritoneal findings. : No flank tenderness. Neuro: Alert. Gross movement of all extremities intact. Vital signs: See flowsheet Medications Administered Discontinued Medications Generic Name Dose Route Start Last Admin Trade Name Freq PRN Reason Stop Dose Admin Albuterol/Ipratropium 3 ml 03/12/25 07:14 03/12/25 08:16 Albuterol/Iprat 2.5/0.5mg 3 Ml Ampul.Neb INHALE 03/12/25 07:15 3 ml ONCE ONE Administration Prednisone 60 mg 03/12/25 07:14 03/12/25 07:36 Prednisone 20 Mg Tablet PO 03/12/25 07:15 60 mg ONCE ONE Administration Medical Decision Making Medical Decision Making [facility] Narrative: 64 F with COPD, recent exacerbation s/p steroid abx. Recurrent dyspnea. Wheezing here but no hypoxia/distress. XR clear of infiltrates. No clinical s/o CHF fluid overload. No PE/DVt risk/hx. COPD exacerbation suspected. Nebs/steroids helped. Albuterol solution for home, steroid coarse. Differential Diagnosis Differential Diagnoses: The differential diagnosis associated with the pr esentation includes COPD, ptx, PNA, URI Lab Data [facility] Lab Attestation statement: I reviewed the patient's lab results. Labs: Lab Results 03/12/25 Range/Units 07:29 Influenza Type A (PCR) NEGATIVE (Negative) Influenza Type B (PCR) NEGATIVE (Negative) RSV RNA Qual (PCR) NEGATIVE (Negative) SARS-CoV-2 RNA (RT-PCR) NEGATIVE (Negative) Independent Interpretation I performed an independent interpretation of an: Plain X-Ray (no infiltrates/effusion) Discharge Plan Discharge Clinical Impression: Acute exacerbation of chronic obstructive airways disease Patient Disposition: Home, Self-Care Instructions: How to Use a Metered-Dose Inhaler (DC), COPD (Chronic Obstructive Pulmonary Disease) (DC) Additional Instructions: DISCHARGE DIAGNOSES: Exacerbation of COPD. No signs of pneumonia on x-ray HISTORY OF PRESENTATION: ?Several days of worsening shortness of breath and wheeze EMERGENCY DEPARTMENT COURSE,TESTS, TREATMENTS: While in the ED today your oxygen was not an appropriate level you did have wheezes on your exam. X-ray did not show pneumonia. You were given an updraft with albuterol and ipratropium and steroid which we have started you on DISCHARGE MEDICATIONS: Prednisone, Albuterol Solution FOLLOW-UP: ?Call your primary or general physician soon as possible to discuss your symptoms, your ED visit and to discuss follow up plans Call your primary doctor INSTRUCTIONS ?& RETURN PRECAUTIONS: If any symptoms change first call your primary physician, if it is after-hours your primary doctors office should have a provider vascular surgeon you can speak with. If the symptoms are severe or very concerning to you then call 911 or return to the ED. If you develop worsening shortness of breath return Say Miller MD Emergency Physician [facility] Prescriptions: New prednisone 50 mg tablet 50 mg PO DAILY 4 Days Qty: 4 0RF albuterol sulfate 2.5 mg /3 mL (0.083 %) solution for nebulization 2.5 mg inhalation Q4-6H PRN (Reason: bronchospasm) Qty: 90 0RF No Action albuterol sulfate [Ventolin HFA] 90 mcg/actuation Hfa Aerosol Inhaler 2 puff inhalation RQ4H PRN (Reason: sob) Qty: 1 0RF fluticasone furoate-vilanterol [Breo Ellipta] 100-25 mcg/dose Blister With Device 1 inh inhalation RDAILY Qty: 60 0RF prednisone 20 mg tablet 20 mg PO DAILY Qty: 7 0RF Rx Instructions: Take prednisone 20 mg 1 tablet daily for 5 days with food Then prednisone 20 mg 1/2 tab daily for 5 days albuterol sulfate 90 mcg/actuation HFA aerosol inhaler 2 puff inhalation Q6H PRN (Reason: shortness of breath or wheezing) Qty: 8.5 0RF azithromycin 250 mg tablet See Rx Instructions .ROUTE .COMPLEX Qty: 6 0RF Rx Instructions: take 500 mg today (day 1), then 250 mg for 4 days (days 2-5) prednisone 20 mg tablet 40 mg PO DAILY Qty: 10 0RF Interventions: ED Discharge Assessment Last Done: 03/12/25 09:18 Discharge Date/Time: 03/12/25 09:21 Print Language: Beninese
[2025-03-12] MEDS: Albuterol/Iprat 2.5/0.5MG 3 ML AMPUL.NEB INHALE (08:16)
[2025-03-12 08:18] VITALS: PULSE 101; RESP 18; O2SAT 94
[2025-03-12 08:19] LABS: Influenza A PCR NEGATIVE (Negative); Influenza B PCR NEGATIVE (Negative); Resp Syncy Virus RNA Qual PCR NEGATIVE (Negative); SARS COV2 PCR INHOUSE NEGATIVE (Negative)
[2025-03-12 09:08] VITALS: BP 157/82; PULSE 90; RESP 18; TEMP 36.6; O2SAT 94
[2025-03-12 09:18] VITALS: BP 157/82; PULSE 90; RESP 18; TEMP 36.6; O2SAT 94
== END 2025-03-12 09:21 | disposition home or self-care (01) ==
PROVIDERS: Emergency Provider Emergency Medicine; PCP Internal Medicine
DX: J44.1 Chronic obstructive pulmonary disease with (acute) exacerbation (principal); R06.02 Shortness of breath; I10 Essential (primary) hypertension; Z03.818 Encounter for observation for suspected exposure to other biological agents ruled out
CPT/HCPCS: 0241U; 71045; 99284; 99285

== ENCOUNTER → 2025-03-12 07:30 | Outpatient (BNV) | payer OTHER, SELFPAY | PROVIDERS: Emergency Provider Emergency Medicine; PCP Internal Medicine; Visit Provider Radiology Diagnostic Radiology | DX: R06.02 Shortness of breath (principal) | CPT/HCPCS: 71045 ==

== ENCOUNTER 2025-03-23 08:14 | Observation (INO) | payer OTHER, SELFPAY ==
[2025-03-23] VITALS (11 sets, daily range): BP systolic 114–202; BP diastolic 57–85; PULSE 83–107; RESP 16–24; TEMP 36.4–37.2; O2SAT 93–98; BMI 29.6
--- NOTE | ~2025-03-23 | XR_ITS ---
CLINICAL HISTORY: dyspnea Chest radiograph, 1 view Comparison: CR/AL/SR - XR CHEST 1V - 03/12/25 07:32 EDT Findings: The cardiomediastinal silhouette is not enlarged. Bilateral perihilar bronchovascular prominence. No focal consolidation or effusion. No pneumothorax. IMPRESSION: Bilateral perihilar bronchovascular prominence which can be seen with viral/atypical infection or pulmonary vascular congestion. No focal consolidation. This document has been electronically signed by: Ariel Cruz DO on 03/23/2025 10:29:17
--- NOTE | 2025-03-23 08:24 | ECG_ITS ---
Test Reason : DYSPNEA Blood Pressure : */* mmHG Vent. Rate : 100 BPM Atrial Rate : 100 BPM P-R Int : 114 ms QRS Dur : 86 ms QT Int : 350 ms P-R-T Axes : 111 119 145 degrees QTcB Int : 451 ms Suspect limb lead reversal, interpretation assumes no reversal Normal sinus rhythm Right axis deviation Abnormal ECG When compared with ECG of 09-Jul-2024 10:35, QRS axis Shifted right ST no longer depressed in Lateral leads T wave inversion now evident in Lateral leads Referred By: Acacia Garza Electronically Signed By: AREN SINGER
--- NOTE | 2025-03-23 08:30 | ED_ITS ---
HPI - SOB/Dyspnea General Chief Complaint: Dyspnea Stated Complaint: difficulty breathing Time Seen by Provider: 03/23/25 08:23 Source: patient, family and old records reviewed Mode of arrival: ambulatory Limitations: no limitations History of Present Illness ED Provider: MERRY HANDLEY Narrative: 64 yo female with PMH of COPD not on home O2 but still smoking was just admitted here for pneumonia Mother's Day and completed that therapy. She had to return to our ED again for wheezing 10 days ago they refilled her neb liquid and 5 day prednisone course. She reports increase in sputum sometimes yellow. She notes she started to have trouble breathing again around 1am. Her spouse states she is still smoking. NO chest pain, leg swelling, fevers. MD elicited complaint: shortness of breath and pain with inspiration Pertinent past history: COPD Onset (ago): day(s) (1am today) Context: recent illness Timing: progressively worsening Severity: severe Exacerbating factors: lying flat, exertion and coughing Relieving factors: rest and upright position Known history of: COPD Associated symptoms: cough, wheezing and sputum production Treatment prior to arrival: bronchodilator Related Data Previous Rx's ?Medication ?Instructions ?Recorded albuterol sulfate 90 mcg/actuation 2 puff inhalation RQ4H PRN sob #1 g 07/12/24 aerosol inhaler (Ventolin HFA) fluticasone furoate 100 1 inh inhalation RDAILY #60 ea 07/12/24 mcg-vilanterol 25 mcg/dose inhalation powder (Breo Ellipta) prednisone 20 mg tablet 20 mg PO DAILY #7 tabs 07/12/24 albuterol sulfate 90 mcg/actuation 2 puff inhalation Q6H PRN 03/02/25 aerosol inhaler shortness of breath or wheezing #8.5 grams azithromycin 250 mg tablet See Rx Instructions PO .COMPLEX 03/02/25 upper resp infection #6 tabs prednisone 20 mg tablet 40 mg (2 x 20 mg) PO DAILY #10 tabs 03/02/25 albuterol sulfate 2.5 mg/3 mL 2.5 mg (3 mL) inhalation Q4-6H PRN 03/12/25 (0.083 %) solution for nebulization bronchospasm #90 mL prednisone 50 mg tablet 50 mg PO DAILY 4 days #4 tabs 03/12/25 Allergies Allergy/AdvReac Type Severity Reaction Status Date / Time No Known Allergies Allergy Verified 03/23/25 08:19 Review of Systems 2 Review of Systems: Constitutional : No Fever, No Chills ENT/Mouth : No Hoarseness, No sore throat, No Rhinorrhea Eyes: No Redness, No Discharge, No Vision Changes Cardiovascular : No Chest Pain, positive SOB, positive Dyspnea on Exertion, No Edema Respiratory : positive Cough, pos Sputum, positive Wheezing, Gastrointestinal : No Nausea, No Vomiting, No Diarrhea, No abdominal Pain Genitourinary : No Dysuria, No Hematuria Musculoskeletal : No joint pain, No Myalgias Skin : No rash Neuro : No Weakness, No Numbness, No Headache Psych : No anxiety, depression All other systems reviewed and are negative [facility] Past Medical History Attestation statement: The following information was validated with the patient. Source: old records reviewed Medical History Vertigo Hypertension Multiple sclerosis Social History Social History Household Members: Spouse Housing: Apartment Do you presently have visiting nurse or other home services: No Alcohol intake: never Patient Tobacco Use Status: Current everyday Tobacco user Tobacco use type: Cigarette Cigarette Packs Per Day: 1 Cigarettes Per Day: 20.0 Years Smoked: 40 Smoked in Last 30 Days: Yes Second Hand Smoke Exposure: No Use of substances other than those prescribed or required for medical reasons: No Advance Directives: No Advance Directives Information Provided: Yes Do you have a plan to hurt others: No Plan service: No Physical Exam 2 Vital Signs: Vital Signs: Last Vital Signs Temp 98.3 F 03/23/25 08:58 Pulse 92 03/23/25 10:39 Resp 16 03/23/25 10:39 BP 169/70 H 03/23/25 08:58 Pulse Ox 94 03/23/25 08:58 O2 Del Method Room Air 03/23/25 08:58 BMI result Body Mass Index 29.6 Appearance: Alert. Oriented X3. Mild acute distress. Eyes: Pupils equal, round and reactive to light. ENT: Pharynx normal. Neck: Normal inspection. Neck supple. CVS: Normal heart rate and rhythm. Pulses normal. Respiratory: Mild respiratory distress retrations and tachypnea Breath sounds diminished throughout with exp and insp wheezes Abdomen: Soft and nontender. Skin: Skin warm and dry. Normal skin color. Normal skin turgor. Extremities: No lower extremity edema. No calf ttp Neuro: Oriented X 3. No motor deficit. No sensory deficit. CN2-12 intact Course Course Course Narrative: possible infection suspected at 851am Reevaluation(s) Reevaluation #1: reepat neb ordered repeat assessment still tachypneic and slightly increased work of breathing but it is improved from initial presentation she is 95% on RA at this time will admit Medications Administered Discontinued Medications Generic Name Dose Route Start Last Admin Trade Name Xiomara PRN Reason Stop Dose Admin Ceftriaxone Sodium 1 gm 03/23/25 08:51 03/23/25 09:29 Ceftriaxone Sodium 1 Gm Vial IVPUSH 03/23/25 08:52 1 gm ONCE ONE Administration Albuterol Sulfate 7.5 mg/ 0 mg 03/23/25 08:29 03/23/25 08:36 Albuterol/Ipratropium 3 ml INHALE 03/23/25 08:30 10 each ONCE ONE Administration Albuterol Sulfate 2.5 mg/ 0 mg 03/23/25 10:33 03/23/25 10:39 Albuterol/Ipratropium 3 ml INHALE 03/23/25 10:34 7.5 dose ONCE ONE Administration Magnesium Sulfate 2 gm in 50 mls @ 25 mls/hr 03/23/25 08:24 03/23/25 09:30 Magnesium Sulfate/H2o IV 03/23/25 10:23 Infused ONCE ONE Infusion Methylprednisolone Sodium Succinate 60 mg 03/23/25 08:24 03/23/25 09:06 Methylprednisolone Sod Succ 125 Mg/2 Ml Vial IVPUSH 03/23/25 08:25 60 mg ONCE ONE Administration Medical Decision Making Medical Decision Making [facility] Narrative: 64 yo female with PMH of COPD not on home O2 here with COPD exacerbation at this time given history and recent prednisone use with diffuse insp and exp wheezes she will need labs, EKG, CXR, IV steroids and magnesium. She has no CP or signs of DVT to suggest ACS/VTE. Differential Diagnosis Differential Diagnoses: The differential diagnosis associated with the presentation includes COPD, virus, pneumonia Admission/Observation Consideration of admission/observation: Escalation of care including admission/observation considered still wheezing and slightly labored given her recent steroid use I am going to admit for COPD Consult Healthcare Provider Management of the patient was discussed with: Hospitalist (will admit) Lab Data MDM Lab Attestation statement: I reviewed the patient's lab results. 03/23/25 08:49 03/23/25 08:49 Labs: Lab Results 03/23/25 03/23/25 Range/Units 08:49 09:06 WBC 9.9 (4.8-10.8) X10*3/uL RBC 4.73 (4.20-5.50) X10*6/uL Hgb 15.1 (12.0-16.0) g/dl Hct 43.4 (37.0-47.0) % MCV 91.8 (80.0-98.0) fL MCH 31.9 (27.0-33.0) pg MCHC 34.8 (31.0-35.0) g/dl RDW 13.7 (11.0-16.0) % Plt Count 244 (160-400) X10*3/uL MPV 9.4 (9.4-12.3) fL Immature Gran % (Auto) 0.2 (0.0-0.4) % Neut % (Auto) 38.2 L (45-73) % Lymph % (Auto) 39.4 (20-40) % [place] % (Auto) 6.4 (2-11) % Eos % (Auto) 15.2 H (0-4) % Baso % (Auto) 0.6 (0-2) % Lymph # (Auto) 3.9 (1.2-4.9) X10*3/uL [place] # (Auto) 0.6 (0.1-1.2) X10*3/uL Eos # (Auto) 1.5 H (0.0-0.4) X10*3/uL Baso # (Auto) 0.1 (0.0-0.2) X10*3/uL Abs Immat Gran (auto) 0.02 (0.00-0.03) X10*3/uL Absolute Neuts (auto) 3.8 (2.0-8.3) x10*3/uL Absolute Nucleated RBC 0.000 (0.0-0.012) X10*3/uL Nucleated RBC % (auto) 0.0 (0.0-0.2) /100WBC VBG pH 7.34 (7.32-7.43) VBG pCO2 43 mmHg VBG pO2 47 mmHg VBG HCO3 24 (22-26) mmol/L VBG O2 Saturation 68.0 % VBG Base Excess -1.7 mmol/L Sodium 144 (135-145) mmol/L Potassium 4.0 (3.3-5.1) mmol/L Chloride 113 H (96-108) mmol/L Carbon Dioxide 24 (22-29) mmol/L Anion Gap 11 L (12-20) BUN 11 (9-16) mg/dL Creatinine 0.64 (0.5-1.4) mg/dL Estim Creat Clear Calc 95.6 Estimated GFR > 60 Random Glucose 102 (60-115) mg/dL Lactic Acid 1.9 (0.5-2.0) mmol/L Calcium 9.8 (8.4-10.2) mg/dL Magnesium 1.9 (1.6-2.6) mg/dL Total Bilirubin 0.2 (0.0-1.0) mg/dL Direct Bilirubin < 0.2 (0.0-0.5) mg/dL AST 21 (5-31) U/L ALT 21 (0-31) U/L Alkaline Phosphatase 63 (39-117) U/L Troponin I High Sens 3.4 (<3.5-17.0) ng/L B-Natriuretic Peptide 17 (<100) pg/mL Total Protein 7.5 (6.5-8.0) g/dL Albumin 4.1 (3.5-5.0) g/dL Lipase 24 (8-78) U/L Influenza Type A (PCR) NEGATIVE (Negative) Influenza Type B (PCR) NEGATIVE (Negative) RSV RNA Qual (PCR) NEGATIVE (Negative) SARS-CoV-2 RNA (RT-PCR) NEGATIVE (Negative) Independent Interpretation I performed an independent interpretation of an: EKG and Plain X-Ray (no pneumonia) Interpretation: Rate: 95 Rhythm: NSR Humphrey: normal Normal P waves. Normal BRADLEY. Normal QRS complex. ST T wave : flat t waves III, no SOWMYA qTC: 449 prior studies: no acute ischemia The study has been interpreted contemporaneously by me. . Radiology Impression Discussion of test interpretation with radiology: I have reviewed the radiologist's reading. Independent Historian Clinical information obtained from an independent historian. History obtained from or confirmed by: Spouse External Record Review External record reviewed: Inpatient record and Outpatient record Critical Care Time Critical Care Time Critical Care Time: Yes Total Critical Care Time: 45 Attestation: Time is exclusive of separately billable procedures. Time includes: direct patient care, patient reassessment, coordination of patient care, interpretation of data (laboratory data, pulse oximetry, venous blood gases and chest xrays), review of patient's medical records, medical consultation and documentation of patient care. IV magnesium for resp distress, repeat hour long neb therapy. Procedures excluded from critical care time: electrocardiography. I attest to this time spent taking care of the patient Discharge Plan Discharge Clinical Impression: Acute exacerbation of chronic obstructive pulmonary disease Patient Disposition: Admitted As Inpatient Prescriptions: No Action albuterol sulfate [Ventolin HFA] 90 mcg/actuation Hfa Aerosol Inhaler 2 puff inhalation RQ4H PRN (Reason: sob) Qty: 1 0RF fluticasone furoate-vilanterol [Breo Ellipta] 100-25 mcg/dose Blister With Device 1 inh inhalation RDAILY Qty: 60 0RF prednisone 20 mg tablet 20 mg PO DAILY Qty: 7 0RF Rx Instructions: Take prednisone 20 mg 1 tablet daily for 5 days with food Then prednisone 20 mg 1/2 tab daily for 5 days albuterol sulfate 90 mcg/actuation HFA aerosol inhaler 2 puff inhalation Q6H PRN (Reason: shortness of breath or wheezing) Qty: 8.5 0RF azithromycin 250 mg tablet See Rx Instructions .ROUTE .COMPLEX Qty: 6 0RF Rx Instructions: take 500 mg today (day 1), then 250 mg for 4 days (days 2-5) prednisone 20 mg tablet 40 mg PO DAILY Qty: 10 0RF prednisone 50 mg tablet 50 mg PO DAILY 4 Days Qty: 4 0RF albuterol sulfate 2.5 mg /3 mL (0.083 %) solution for nebulization 2.5 mg inhalation Q4-6H PRN (Reason: bronchospasm) Qty: 90 0RF Print Language: Azerbaijani
[2025-03-23] MEDS: Albuterol Sulfate 7.5 MG, Albuterol/Iprat 2.5/0.5MG 3 ML 3 ML INHALE (08:36)
--- NOTE | 2025-03-23 08:50 | PC.NURSE ---
pt alert and oriented, skin pwd, respirations slightly labored, ls expiatory wheezing, pt reports waking up around 0100 feeling sob with a minim dry cough, ns on the monitor and vs stable
[2025-03-23 08:57] LABS: MANUAL DIFF FLAG NO
[2025-03-23 08:59] LABS: Basophils Absolute Auto 0.1 X10*3/uL (0.0-0.2); Basophils Percent Auto 0.6 % (0-2); Eosinophils Absolute Auto 1.5 X10*3/uL (0.0-0.4); Eosinophils Percent Auto 15.2 % (0-4); Hematocrit 43.4 % (37.0-47.0); Hemoglobin 15.1 g/dl (12.0-16.0); Imm Gran Abs Auto 0.02 X10*3/uL (0.00-0.03); Imm Gran Pct Auto 0.2 % (0.0-0.4); Lymphocytes Absolute Auto 3.9 X10*3/uL (1.2-4.9); Lymphocytes Percent Auto 39.4 % (20-40); Mean Corpuscular HGB Conc 34.8 g/dl (31.0-35.0); Mean Corpuscular Hemoglobin 31.9 pg (27.0-33.0); Mean Corpuscular Volume 91.8 fL (80.0-98.0); Mean Platelet Volume 9.4 fL (9.4-12.3); Monocytes Absolute Auto 0.6 X10*3/uL (0.1-1.2); Monocytes Percent Auto 6.4 % (2-11); Neutrophils Absolute Auto 3.8 x10*3/uL (2.0-8.3); Neutrophils Percent Auto 38.2 % (45-73); Platelet Count 244 X10*3/uL (160-400); Red Blood Count 4.73 X10*6/uL (4.20-5.50); Red Cell Distribution Width 13.7 % (11.0-16.0); White Blood Count 9.9 X10*3/uL (4.8-10.8)
[2025-03-23] MEDS: Magnesium Sulfate/H2O 2 GM/50 ML PIGGYBACK IV (09:04)
[2025-03-23] MEDS: methylPREDNISolone Sod Succ 125 MG/2 ML VIAL 60 MG IVPUSH (09:06)
[2025-03-23 09:11] LABS: VBG Base Excess -1.7 mmol/L; VBG HCO3 24 mmol/L (22-26); VBG pCO2 43 mmHg; VBG pH 7.34 (7.32-7.43); VBG pO2 47 mmHg
[2025-03-23 09:12] LABS: Venous Blood Gas Refer to POC result
[2025-03-23 09:14] LABS: Lactic Acid 1.9 mmol/L (0.5-2.0)
[2025-03-23 09:15] LABS: Alanine Aminotransferase 21 U/L (0-31); Albumin Level 4.1 g/dL (3.5-5.0); Alkaline Phosphatase 63 U/L (39-117); Anion Gap 11 (12-20); Aspartate Amino Transferase 21 U/L (5-31); Bilirubin Direct < 0.2 mg/dL (0.0-0.5); Bilirubin Total 0.2 mg/dL (0.0-1.0); Blood Urea Nitrogen 11 mg/dL (9-16); Calcium 9.8 mg/dL (8.4-10.2); Carbon Dioxide 24 mmol/L (22-29); Chloride 113 mmol/L (96-108); Creatinine Clr Calc Pharmacy 95.6; Estimated Glomerular Filt Rate > 60; Glucose Random 102 mg/dL (60-115); Lipase 24 U/L (8-78); Magnesium 1.9 mg/dL (1.6-2.6); Sodium 144 mmol/L (135-145); Total Protein 7.5 g/dL (6.5-8.0)
[2025-03-23 09:20] LABS: B Type Natriuretic Peptide 17 pg/mL (<100)
[2025-03-23 09:22] LABS: Troponin-I High Sensitivity 3.4 ng/L (<3.5-17.0)
[2025-03-23] MEDS: cefTRIAXone sodium 1 GM VIAL IVPUSH (09:29)
--- NOTE | 2025-03-23 09:38 | ECG_ITS ---
Test Reason : CHEST PAIN Blood Pressure : */* mmHG Vent. Rate : 95 BPM Atrial Rate : 95 BPM P-R Int : 118 ms QRS Dur : 88 ms QT Int : 358 ms P-R-T Axes : 68 57 46 degrees QTcB Int : 449 ms Normal sinus rhythm Nonspecific ST abnormality Abnormal ECG When compared with ECG of 23-Mar-2025 09:01, QRS axis Shifted left Borderline criteria for Inferior infarct are no longer Present Referred By: Acacia Garza Electronically Signed By: AREN SINGER
[2025-03-23 09:58] LABS: Influenza A PCR NEGATIVE (Negative); Influenza B PCR NEGATIVE (Negative); Resp Syncy Virus RNA Qual PCR NEGATIVE (Negative); SARS COV2 PCR INHOUSE NEGATIVE (Negative)
--- NOTE | 2025-03-23 10:23 | PC.NURSE ---
pt reports feeling a little better but lung sounds still wheezing through out all gu
[2025-03-23] MEDS: Albuterol Sulfate 2.5 MG, Albuterol/Iprat 2.5/0.5MG 3 ML 3 ML INHALE (10:39)
--- NOTE | 2025-03-23 11:34 | PHA.MEDREC ---
Addendum entered by Marito Cabral PharmD 03/23/25 11:36: reviewed Original Note: Pharmacy Consult ? Medication Reconciliation Pharmacy has completed the medication reconciliation. Spoke with patient to confirm.
--- NOTE | 2025-03-23 13:35 | PM.IMHP ---
History of Present Illness Date of Service: 03/23/25 Attending physician on admission: Mao Navarro Chief Complaint: SOB Pt is a 64-year-old female with a PMH significant for multiple sclerosis diagnosed 22 years ago in remission and not on home meds, HTN not on home meds,?likely undiagnosed COPD not on home O2, 46 pack year smoking hx, currently smoking 1 ppd who presents to the ED with SOB, difficulty breathing, and cough since this morning. Pt has been experiencing respiratory issues for the past few months, but overall in her normal state of health last night when going to bed. Woke up at 01:00 with SOB, wheezing, nonproductive cough, and reports she simply ?could not breathe?. Took a nebulizer treatment that did not help and then decided to come to the ED for further treatment and evaluation. No fever or chills. No significant cough above baseline prior to this morning. Denies increased fatigue. No nausea, vomiting, abdominal pain. Denies chest pain/pressure, palpitations. No fever or chills. Reports she feels in his breathing a lot better than when she came into the ED, but still with some SOB, wheezing, and difficulty breathing.? In the ED pt was tachycardic up to 99, tachypneic up to 22, and elevated BP of 202/85, satting at 94% on RA. Labs were overall grossly unremarkable and around baseline for pt. Troponin negative. BNP 17. Lactic acid WNL at 1.9. VBG reassuring. Tested negative for flu, COVID, RSV. CXR showed no focal consolidation, but showed bilateral perihilar bronchovascular prominence, similar to prior. EKG demonstrated normal sinus rhythm with nonspecific ST abnormality, similar to prior. Pt was treated in the ED with Mag sulfate, DuoNeb, Solu-Medrol, and ceftriaxone. Pt is admitted to the hospital under observation for treatment and further evaluation of likely undiagnosed acute COPD exacerbation that has not sufficiently responded to ED treatments. Review of Systems Review of Systems: Yes all other systems are reviewed and are negative [facility] Medical History Vertigo Hypertension Multiple sclerosis Social History Household Members: Spouse Housing: Apartment Do you presently have visiting nurse or other home services: No Alcohol intake: never Patient Tobacco Use Status: Current everyday Tobacco user Tobacco use type: Cigarette Cigarette Packs Per Day: 1 Cigarettes Per Day: 20.0 Years Smoked: 40 Smoked in Last 30 Days: Yes Second Hand Smoke Exposure: No Use of substances other than those prescribed or required for medical reasons: No Advance Directives: No Advance Directives Information Provided: Yes Do you have a plan to hurt others: No Plan service: No Meds Allergies Allergy/AdvReac Type Severity Reaction Status Date / Time No Known Allergies Allergy Verified 03/23/25 08:19 Physical Exam Vital Signs and Narrative: Vital Signs: Last Vital Signs Temp 98.3 F 03/23/25 08:58 Pulse 92 03/23/25 10:39 Resp 16 03/23/25 10:39 BP 169/70 H 03/23/25 08:58 Pulse Ox 94 03/23/25 08:58 O2 Del Method Room Air 03/23/25 08:58 BMI result Body Mass Index 29.6 General: AOx3, no acute distress Resp: Mild diffuse expiratory wheezing. Poor airflow. CVS: S1, S2, RRR GI: +BS, NT, no distention Skin: Warm, dry Neuro: Cranial nerves II-XII grossly intact bilaterally. Motor grossly intact bilaterally Extremities: No edema Psych: Appropriate affect Results Labs 03/23/25 08:49 03/23/25 08:49 Labs: Laboratory Results - last 24 hr 03/23/25 03/23/25 08:49 09:06 MCV 91.8 MCH 31.9 MCHC 34.8 RDW 13.7 Plt Count 244 MPV 9.4 Immature Gran % (Auto) 0.2 Neut % (Auto) 38.2 L Lymph % (Auto) 39.4 [place] % (Auto) 6.4 Eos % (Auto) 15.2 H Baso % (Auto) 0.6 Lymph # (Auto) 3.9 [place] # (Auto) 0.6 Eos # (Auto) 1.5 H Baso # (Auto) 0.1 Abs Immat Gran (auto) 0.02 Absolute Neuts (auto) 3.8 Absolute Nucleated RBC 0.000 Nucleated RBC % (auto) 0.0 VBG pH 7.34 VBG pCO2 43 VBG pO2 47 VBG HCO3 24 VBG O2 Saturation 68.0 VBG Base Excess -1.7 Anion Gap 11 L Estim Creat Clear Calc 95.6 Estimated GFR > 60 Random Glucose 102 Lactic Acid 1.9 Calcium 9.8 Magnesium 1.9 Total Bilirubin 0.2 Direct Bilirubin < 0.2 AST 21 ALT 21 Alkaline Phosphatase 63 Troponin I High Sens 3.4 B-Natriuretic Peptide 17 Total Protein 7.5 Albumin 4.1 Lipase 24 Influenza Type A (PCR) NEGATIVE Influenza Type B (PCR) NEGATIVE RSV RNA Qual (PCR) NEGATIVE SARS-CoV-2 RNA (RT-PCR) NEGATIVE Assessment and Plan (1) Acute exacerbation of chronic obstructive pulmonary disease: Status: Acute Plan Pt is a 64-year-old female with a PMH significant for multiple sclerosis diagnosed 22 years ago in remission and not on home meds, HTN not on home meds,?likely undiagnosed COPD not on home O2, 46 pack year smoking hx, currently smoking 1 ppd who presents to the ED with SOB, difficulty breathing, and cough since this morning. Pt is admitted to the hospital under observation for treatment and further evaluation of likely undiagnosed acute COPD exacerbation that has not sufficiently responded to ED treatments. Likely acute COPD exacerbation No formal COPD diagnosis, does not regularly follow with PCP, 46 year smoking hx, currently smoking 1ppd Pt with SOB, nonproductive cough, difficultly breathing since 1:00 this morning CXR without consolidation, similar to prior No sepsis: tachycardia due to nebs/albuterol, no fever or leukocytosis Will cover with empiric abx for COPD, not pneumonia: ceftriaxone, started 03/23/2025 Duonebs, Solu-Medrol, guafenisin Check procalcitonin HTN Pt initially hypertensive at 202/85, currently 114/61 Pt not on hypertensives States SBP has been around 150 since her teens Monitor BP closely, consider starting amlodipine 5 mg if BP remains elevated Hx of MS In remission, not on home meds DNR/DNI, verified with pt Attending:?Dr. Navarro DVT Prophylaxis: Lovenox Pt will be admitted to the hospital under observation for treatment and further evaluation of likely acute COPD exacerbation not sufficiently alleviated by ED treatment. Pt continues to be short of breath and wheezy, and will benefit from at least an overnight hospital stay for continued bronchodilators and IV steroids. Quality Stroke Does the patient have a stroke diagnosis?: No VTE Prior VTE?: No VTE Risk Level:: Medical - moderate - high VTE Device Contraindication: Treatment Not Indicated VTE Drug Contraindication: N/A - Med Ordered
[2025-03-23] MEDS: Albuterol/Iprat 2.5/0.5MG 3 ML AMPUL.NEB INHALE ×2 (15:11→20:11)
[2025-03-23 15:34] LABS: Procalcitonin < 0.02 ng/mL
[2025-03-23] MEDS: 0.9 % Sodium Chloride Flush 3 ML SYRINGE IVFLUSH (16:12)
[2025-03-23] MEDS: methylPREDNISolone Sod Succ 40 MG/ML VIAL IVPUSH (21:07)
[2025-03-24 02:30] VITALS: BP 159/66; PULSE 87; RESP 18; TEMP 36.6; O2SAT 97
[2025-03-24 06:59] VITALS: BP 158/74; PULSE 95; RESP 16; TEMP 36.6; O2SAT 93
[2025-03-24] MEDS: Albuterol/Iprat 2.5/0.5MG 3 ML AMPUL.NEB INHALE ×2 (08:17→11:39)
[2025-03-24 08:18] VITALS: PULSE 95; RESP 16; O2SAT 95
[2025-03-24] MEDS: cefTRIAXone sodium 1 GM VIAL IVPUSH (08:19)
[2025-03-24] MEDS: methylPREDNISolone Sod Succ 40 MG/ML VIAL IVPUSH (08:19)
[2025-03-24] MEDS: 0.9 % Sodium Chloride Flush 3 ML SYRINGE IVFLUSH (08:19)
[2025-03-24 09:45] LABS: Adenovirus PCR Not Detected (Not Detect.); Bordetella parapertussis PCR Not Detected (Not Detect.); Bordetella pertussis PCR Not Detected (Not Detect.); Chlamydia pneumoniae PCR Not Detected (Not Detect.); Coronavirus 229E PCR Not Detected (Not Detect.); Coronavirus HKU1 PCR Not Detected (Not Detect.); Coronavirus NL63 PCR Not Detected (Not Detect.); Coronavirus OC43 PCR Not Detected (Not Detect.); Human metapneumovirus PCR Not Detected (Not Detect.); Influenza A PCR Not Detected (Not Detect.); Influenza B PCR Not Detected (Not Detect.); Mycoplasma pneumoniae PCR Not Detected (Not Detect.); Parainfluenza 1 PCR Not Detected (Not Detect.); Parainfluenza 2 PCR Not Detected (Not Detect.); Parainfluenza 3 PCR Not Detected (Not Detect.); Parainfluenza 4 PCR Not Detected (Not Detect.); RSV PCR Not Detected (Not Detect.); Rhino/Enterovirus PCR Not Detected (Not Detect.)
[2025-03-24 09:47] LABS: Influenza A H1 PCR Not Detected (Not Detect.); Influenza A H1-2009 PCR Not Detected (Not Detect.); Influenza A H3 PCR Not Detected (Not Detect.); SARS-CoV-2 PCR Not Detected (Not Detect.)
[2025-03-24] MEDS: Doxycycline Monohydrate 100 MG CAPSULE PO (10:22)
--- NOTE | 2025-03-24 10:43 | P.DS_ITS ---
DS: Providers Provider Date of Service: 03/24/25 Date of admission: 03/23/25 11:41 Date of discharge: 03/24/25 Primary care physician: Brian Cam MD Attending physician on discharge: Mao Navarro Discharging clinician: Mao Navarro DS: Diagnosis Discharge Diagnosis (1) Acute exacerbation of chronic obstructive pulmonary disease: Status: Acute DS: Summary Hospital Course Hospital Course: HPI:64-year-old female with a PMH significant for multiple sclerosis diagnosed 22 years ago in remission and not on home meds, HTN not on home meds,?likely undiagnosed COPD not on home O2, 46 pack year smoking hx, currently smoking 1 ppd who presents to the ED with SOB, difficulty breathing, and cough since this morning. Pt has been experiencing respiratory issues for the past few months, but overall in her normal state of health last night when going to bed. Woke up at 01:00 with SOB, wheezing, nonproductive cough, and reports she simply ?could not breathe?. Took a nebulizer treatment that did not help and then decided to come to the ED for further treatment and evaluation. No fever or chills. No significant cough above baseline prior to this morning. Denies increased fatigue. No nausea, vomiting, abdominal pain. Denies chest pain/pressure, palpitations. No fever or chills. Reports she feels in his breathing a lot better than when she came into the ED, but still with some SOB, wheezing, and difficulty breathing.? In the ED pt was tachycardic up to 99, tachypneic up to 22, and elevated BP of 202/85, satting at 94% on RA. Labs were overall grossly unremarkable and around baseline for pt. Troponin negative. BNP 17. Lactic acid WNL at 1.9. VBG reassuring. Tested negative for flu, COVID, RSV. CXR showed no focal consolidation, but showed bilateral perihilar bronchovascular prominence, similar to prior. EKG demonstrated normal sinus rhythm with nonspecific ST abnormality, similar to prior. Pt was treated in the ED with Mag sulfate, DuoNeb, Solu-Medrol, and ceftriaxone. Pt is admitted to the hospital under observation for treatment and further evaluation of likely undiagnosed acute COPD exacerbation that has not sufficiently responded to ED treatments. Hospital course:64-year-old female with a PMH significant for multiple sclerosis diagnosed 22 years ago in remission and not on home meds, HTN not on home meds,?likely undiagnosed COPD not on home O2, 46 pack year smoking hx, currently smoking 1 ppd who presents to the ED with SOB, difficulty breathing, and cough,cxr findings seem similar to previous cxr 03/12/25(likely finding of recent penumonia -keep showing up).Pt is admitted for likely undiagnosed acute COPD exacerbation with possible uri: started on nebs , steriods ,antibiotics -seems improved . Blood culture negative at 24 hours, no fever or shortness of breath . respiratory viralpanel negative. plan: switched to po prednisone 40 mg qd x4 days ,ceftin 500 mg po bid x6 days and doxycycline 100 mg po bid x6days. strongly advised to abstain form smoking Please repeat chest imaging in next 2-3 weeks to see resolution of chest x-ray findings of recent pneumonia. if any new symptoms-sob or cough or fever-need to go to nearest ed. Above management discussed with the patient detail length she understand and in agreement with the above plan, time spent 40 minute, her present during the conversation. All questions answered. Time Attestation Total time managing care of this patient today: 40 mintues. Discharge Coordination Time (in mins): 40 min Quality: Safe Use of Opioids Does Pt have an Active Cancer Diagnosis on the Problem List?: No Quality: Stroke Does the patient have a stroke diagnosis?: No Physical Exam Vital Signs: Vital Signs: Last Vital Signs Temp 97.9 F 03/24/25 06:59 Pulse 95 03/24/25 08:18 Resp 16 03/24/25 08:18 BP 158/74 H 03/24/25 06:59 Pulse Ox 93 03/24/25 06:59 O2 Del Method Room Air 03/24/25 06:59 BMI result Body Mass Index 29.6 Appearance: Alert.? Oriented X3.? cvs: rrr, [id number]. res: clear to auscultation ,no rhonchii or wheezing abd: no rebound or guarding ,nt, bs present. ext pulses present , no cyanosis . neuro: axo3 , nonfocal. DS: Data Data Completed and Pending Labs on day of discharge: Laboratory Results - last 24 hr 03/23/25 03/23/25 08:49 18:22 Procalcitonin < 0.02 Respiratory Panel [place] See Note Adenovirus (Rapid PCR) Not Detected B.pert (TEM-PCR) Not Detected B.parapertussis DNA PCR Not Detected C. pneumoniae DNA (PCR) Not Detected Coronavirus OC43 (PCR) Not Detected Coronavirus HKU1 (PCR) Not Detected Coronavirus 229E (PCR) Not Detected Coronavirus NL63 (PCR) Not Detected Human Metapneumovir PCR Not Detected Influenza A (RT-PCR) Not Detected Influenza A (H1) PCR Not Detected Influ A (H1/09) PCR Not Detected Influenza A (H3) PCR Not Detected Influenza B (RT-PCR) Not Detected M. pneumoniae (PCR) Not Detected Parainfluenza 1 (PCR) Not Detected Parainfluenza 2 (PCR) Not Detected Parainfluenza 3 (PCR) Not Detected Parainfluenza 4 (PCR) Not Detected RSV (PCR) Not Detected Entero/Rhino (PCR) Not Detected SARS-CoV-2 RNA (RT-PCR) Not Detected Additional Comments Additional comments: cxr: IMPRESSION: Bilateral perihilar bronchovascular prominence which can be seen with viral/atypical infection or pulmonary vascular congestion. No focal consolidation. Discharge Plan Discharge Anticipated Discharge Date/Time: 03/24/25 09:14 Patient Disposition: Home, Self-Care Discharge Diagnosis: copd excerebation,Uri Referrals: Brian Cam MD [Primary Care Provider] - 1 Week Discharge Medications: New prednisone 20 mg Tablet 40 mg PO DAILY Qty: 8 0RF dextromethorphan-guaifenesin 10-100 mg/5 mL Syrup 10 ml PO Q4H PRN (Reason: Cough) Qty: 237 0RF nicotine 21 mg/24 hr Patch 24 Hour 21 mg transdermal DAILY PRN (Reason: Nicotine Cravings) Qty: 7 0RF loratadine 10 mg tablet 10 mg PO DAILY Qty: 7 0RF doxycycline monohydrate 100 mg Capsule 100 mg PO Q12H Qty: 14 0RF cefuroxime axetil 500 mg Tablet 500 mg PO Q12H Qty: 12 0RF Continued albuterol sulfate 90 mcg/actuation HFA aerosol inhaler 2 puff inhalation Q6H PRN (Reason: shortness of breath or wheezing) Qty: 8.5 0RF albuterol sulfate 2.5 mg /3 mL (0.083 %) solution for nebulization 2.5 mg inhalation Q4-6H PRN (Reason: bronchospasm) Qty: 90 0RF Discharge Orders: Discharge Order (Routine); Ordered 03/24/25 Ordered By: Mao Navarro Diet: Advance to usual diet Activity on Discharge: As tolerated Stand Alone Forms: Patient Portal Discharge page Print Language: Croatian Care Plan Goals: copd excerebation with possible uri: started on nebs , steriods ,antibiotics - seems improved . switched to po prednisone 40 mg qd x4 days ,ceftin 500 mg po bid x6 days and doxycycline 100 mg po bid x6days. strongly advised to abstain form smoking if any new symptoms-sob or cough or fever-need to go to nearest ed. Health Concerns: prednisone 40 md qd,ceftin 500 mg po bid x6 days and doxycycline 100 mg po bid x6days. please repeat chest imaging in 2-3 weeks to see resolution of cxr finding of re cent pneumonia. Plan of Treatment: as above. Assessment: as above. Patient Instructions: COPD (Chronic Obstructive Pulmonary Disease) (DC)
[2025-03-24 11:02] VITALS: BP 145/71; PULSE 96; RESP 16; TEMP 37.3; O2SAT 94
[2025-03-24] MEDS: cefuroxime axetiL 500 MG TABLET PO (11:11)
[2025-03-24 11:39] VITALS: PULSE 96; RESP 16
[2025-03-24 12:42] VITALS: BP 155/84; PULSE 114; RESP 20; TEMP 37.4; O2SAT 94
--- NOTE | 2025-03-24 13:08 | MHC.CM.PN ---
Patient dc'd home self care prior to CM assessment.
== END 2025-03-24 12:44 | disposition home or self-care (01) ==
LOC: HO.ED 11:18 → HO.EDOVER 11:42 → HO.S3 03-24 00:11
PROVIDERS: Admitting Provider Student in an Organized Health Care Education/Training Program; Emergency Provider Emergency Medicine; PCP Internal Medicine; Visit Provider Internal Medicine
DX: J44.1 Chronic obstructive pulmonary disease with (acute) exacerbation (principal); J06.9 Acute upper respiratory infection, unspecified; R07.9 Chest pain, unspecified; R05.9 Cough, unspecified; R00.0 Tachycardia, unspecified; R06.82 Tachypnea, not elsewhere classified; G35 Multiple sclerosis; I10 Essential (primary) hypertension; Z72.0 Tobacco use; Z79.899 Other long term (current) drug therapy
CPT/HCPCS: 0241U; 36415; 71045; 80048; 80076; 82803; 83605; 83690; 83735; 83880; 84145; 84484; 85025; 87040; 87633; 93005; 94640; 96365; 96375; 96376; 99221; 99285; J0696; J2919; J3475

== ENCOUNTER → 2025-03-23 08:24 | Outpatient (BNV) | payer OTHER, SELFPAY | PROVIDERS: Admitting Provider Student in an Organized Health Care Education/Training Program; Emergency Provider Emergency Medicine; PCP Internal Medicine; Visit Provider Internal Medicine | DX: R94.31 Abnormal electrocardiogram [ECG] [EKG] (principal); R06.00 Dyspnea, unspecified; R07.9 Chest pain, unspecified | CPT/HCPCS: 93010 ==

== ENCOUNTER → 2025-03-23 08:24 | Outpatient (BNV) | payer OTHER, SELFPAY | PROVIDERS: Emergency Provider Emergency Medicine; PCP Internal Medicine; Visit Provider Radiology Diagnostic Radiology | DX: R91.8 Other nonspecific abnormal finding of lung field (principal) | CPT/HCPCS: 71045 ==

== ENCOUNTER → 2025-03-23 11:41 | Outpatient (BNV) | payer OTHER, SELFPAY | PROVIDERS: Admitting Provider Student in an Organized Health Care Education/Training Program; Emergency Provider Emergency Medicine; PCP Internal Medicine; Visit Provider Student in an Organized Health Care Education/Training Program | DX: J44.1 Chronic obstructive pulmonary disease with (acute) exacerbation (principal) | CPT/HCPCS: 99222; 99239 ==

== ENCOUNTER 2025-04-02 09:04 | Outpatient (REF) | payer OTHER, SELFPAY ==
--- NOTE | ~2025-04-02 | XR_ITS ---
EXAMINATION: XR CHEST CLINICAL INFORMATION: R/O PNEUMONIA COMPARISON: March 23, 2025. TECHNIQUE: 2 views of the chest were obtained. FINDINGS: No gross consolidation, pleural effusion or pneumothorax. Cardiomediastinal silhouette size is normal. Calcified plaque thoracic aortic arch. Mild multilevel thoracic spondylosis. XR/XR chest 2V IMPRESSION: No acute airspace disease. Electronically signed by: Carlin Marin MD 04/02/2025 01:02 PM EDT
== END 2025-04-02 09:05 | disposition home or self-care (01) ==
LOC: HO.HMGCX 09:04
PROVIDERS: PCP Internal Medicine; Visit Provider Internal Medicine
DX: Z13.89 Encounter for screening for other disorder (principal)
CPT/HCPCS: 71046

== ENCOUNTER → 2025-04-02 09:10 | Outpatient (BNV) | payer OTHER, SELFPAY | PROVIDERS: PCP Internal Medicine; Visit Provider Radiology Diagnostic Radiology | DX: Z03.89 Encounter for observation for other suspected diseases and conditions ruled out (principal) | CPT/HCPCS: 71046 ==

== ENCOUNTER → 2025-04-12 20:42 | Outpatient (BNV) | payer OTHER, SELFPAY | PROVIDERS: PCP Internal Medicine; Visit Provider Radiology Diagnostic Radiology | DX: R06.02 Shortness of breath (principal) | CPT/HCPCS: 71046 ==

== ENCOUNTER 2025-04-12 21:14 | Inpatient (IN) | payer OTHER, SELFPAY ==
--- NOTE | 2025-04-12 | ECG_ITS ---
Test Reason : SOB Blood Pressure : */* mmHG Vent. Rate : 70 BPM Atrial Rate : 70 BPM P-R Int : 130 ms QRS Dur : 80 ms QT Int : 374 ms P-R-T Axes : 69 61 60 degrees QTcB Int : 403 ms Normal sinus rhythm Low voltage QRS Nonspecific ST abnormality Abnormal ECG When compared with ECG of 23-Mar-2025 09:31, No significant change was found Referred By: Generic ED Physician Electronically Signed By: Tim Aquino
--- NOTE | ~2025-04-12 | XR_ITS ---
CLINICAL HISTORY: sob 2 view chest x-ray Comparison: CR/SR - XR CHEST 2V - 04/02/25 09:22 EDT Findings: The lungs are clear. Normal size heart. No acute fracture. IMPRESSION: 1. No acute findings. This document has been electronically signed by: Channing Tobar MD on 04/12/2025 22:28:55
[2025-04-12 21:16] VITALS: BP 174/96; PULSE 76; RESP 20; TEMP 36.8; O2SAT 94; BMI 29.6
[2025-04-12 21:42] LABS: MANUAL DIFF FLAG NO
--- NOTE | 2025-04-12 21:50 | ED_ITS ---
HPI - General Adult General Chief complaint: Dyspnea Stated complaint: SOB Time Seen by Provider: 04/12/25 21:49 Source: patient and family Mode of arrival: wheelchair Limitations: no limitations History of Present Illness ED Provider: Judy Pretty PA-C HPI narrative: Patient is a 64 year old assigned female at with a history of COPD presenting to the emergency department today with increased shortness of breath. Patient states that over the last 2 days she has had progressively worsening shortness of breath that her inhaler and duonebs have not helped. Patient denies any dizziness, lightheadedness, abdominal pain, nausea, vomiting, fever, chills, blurry vision, double vision, loss of vision, chest pain, back pain, night sweats, pain with urination, increased urinary frequency, increased urinary urgency, blood in her urine or stool, syncope or a near syncopal episode, recent trauma or falls, bowel incontinence, bladder incontinence, or any other complaints at this time. Onset (ago): day(s) (2) Relieving factors: none Exacerbating factors: movement Associated symptoms: shortness of breath Related Data Previous Rx's ?Medication ?Instructions ?Recorded albuterol sulfate 90 mcg/actuation 2 puff inhalation Q 6H PRN 03/02/25 aerosol inhaler shortness of breath or wheez ing #8.5 grams albuterol sulfate 2.5 mg/3 mL 2.5 mg (3 mL) inhalation Q4-6H PRN 03/24/25 (0.083 %) solution for nebulization bronchospasm #90 m L cefuroxime axetil 500 mg tablet 500 mg PO Q12H #12 tab s 03/24/25 dextromethorphan-guaifenesin 10 10 ml PO Q4H PRN Cough #237 mL 03/24/25 mg-100 mg/5 mL oral syrup doxycycline monohydrate 100 mg 100 mg PO Q12H #14 caps 03/24/25 capsule loratadine 10 mg tablet 10 mg PO DAILY #7 tabs 03/24 nicotine 21 mg/24 hr daily 21 mg transdermal DAILY PRN 03/24/25 transdermal patch Nicotine Cravings #7 ea prednisone 20 mg tablet 40 mg (2 x 20 mg) PO DAILY # 8 tabs 03/24/25 Allergies Allergy/AdvReac Type Severity Reaction Status Date / Time No Known Allergies Allergy Verified 04/12/25 21:20 Review of Systems 2 Constitutional: Constitutional: Reports no additional constitutional complaints, Denies chills, Denies fever(s) and Denies night sweats Eyes: Eyes: Reports no additional eye complaints, Denies blurry vision, Denies change in vision, Denies diplopia, Denies eye discharge, Denies loss of vision and Denies eye pain ENT: Denies dizziness Cardiovascular: Cardiovascular: Reports no additional cardiovascular complaints, Denies chest pain, Denies lightheadedness, Denies Loss of Consciousness and Reports dyspnea Respiratory: Respiratory: Reports no additional respiratory complaints and Reports dyspnea Gastrointestinal: Gastrointestinal: Reports no additional gastrointestinal complaints, Denies abdominal pain, Denies melena, Denies hematochezia, Denies change in bowel habits and Denies change in stool character Genitourinary: Genitourinary: Denies hematuria, Denies urinary frequency, Denies dysuria, Denies urinary incontinence, Denies urinary hesitancy and Denies urinary urgency Musculoskeletal: Musculoskeletal: Reports no additional musculoskeletal complaints, Denies numbness and Denies tingling Neurologic: Denies dizziness, Denies loss of vision, Denies numbness and Denies tingling Psychiatric: Psychiatric: Reports no additional psychiatric complaints Endocrine: Endocrine: Reports no additional endocrine complaints Hematologic/Lymphatic: Hematologic/Lymphatic: Reports no additional hematologic/lymphatic complaints Allergic/Immunologic: Allergic/Immunologic: Reports no additional allergic/immunologic complaints PMFSH Past Medical History Attestation statement: The following information was validated with the patient. (all information validated with the patient's ) Source: old records reviewed, obtained from family (patient's provided additional history and confirmed the history provided by the patient. ) and nursing notes reviewed Medical History Vertigo Hypertension Multiple sclerosis Social History Social History Household Members: Spouse Housing: Apartment Do you presently have visiting nurse or other home services: No Alcohol intake: never Patient Tobacco Use Status: Current everyday Tobacco user Tobacco use type: Cigarette Cigarette Packs Per Day: 1 Cigarettes Per Day: 20.0 Years Smoked: 40 Smoked in Last 30 Days: No Second Hand Smoke Exposure: No Use of substances other than those prescribed or required for medical reasons: No Advance Directives: No Advance Directives Information Provided: Yes Patient : No service: No Physical Exam ED Vital Signs: Vital Signs - 24 hr 04/12/25 21:16 04/12/25 22:10 Temperature 98.3 F Pulse Rate 76 69 Respiratory Rate 20 20 Blood Pressure 174/96 H Pulse Oximetry 94 Oxygen Delivery Method Room Air BMI result Body Mass Index 29.6 Const General: cooperative, no acute distress, alert and awake Nutritional Appearance: well nourished Orientation/consciousness: patient oriented x3 HENMT Head: Yes normal to inspection and Yes atraumatic Ears: hearing grossly normal bilaterally and external ears normal General nose exam: Normal external nose present, no nasal discharge noted and no epistaxis Face and sinus: Yes normal facial exam, No abrasion and No laceration Mouth: Normal oral and palatal mucosa present, no drooling and no muffled voice Eyes General: appearance normal, both eyes and all related structures Periorbital: periorbital findings normal Eyelids: Yes eyelids normal Conjunctivae: conjunctivae normal Pupils: Equal, round and reactive pupils present EOM: EOMs intact bilaterally Neck Neck: Yes normal visual inspection, Yes full ROM and Yes no lymphadenopathy Resp Effort & Inspection: able to speak in complete sentences, audible wheezes and labored Auscultation: wheezes scattered wheezes Neuro General: patient oriented x3, moves all extremities and CN's II-XI intact bilaterally Cranial nerves: Yes Equal, round and reactive pupils present Cognition (Neuro): normal cognition Extrem General: Yes normal to inspection, Yes full ROM and Yes capillary refill normal Psych Appearance: grossly normal Mental Status: mental status grossly normal Affect: normal affect Attitude: cooperative Thought process: Normal thought process present Thought content: Normal thought content present Insight: Good insight present (Psych) Medications Administered Generic Name Dose Route Start Last Admin Trade Name Freq PRN Reason Stop Dose Admin Enoxaparin Sodium 40 mg 04/12/25 23:00 04/12/25 23:43 Enoxaparin Sodium 40 Mg/0.4 Ml Syringe SUBCUT Not Given Q24H INÉS Discontinued Medications Generic Name Dose Route Start Last Admin Trade Name Freq PRN Reason Stop Dose Admin Albuterol Sulfate 7.5 mg/ 10 mg 04/12/25 22:01 04/12/25 22:08 Albuterol Sulfate 2.5 mg INHALE 04/12/25 22:02 10 mg ONCE ONE Administration Azithromycin 500 mg 04/12/25 22:53 04/12/25 23:29 Azithromycin 500 Mg Tablet PO 04/12/25 22:54 500 mg ONCE ONE Administration Albuterol Sulfate 7.5 mg/ 0 mg 04/12/25 23:00 04/12/25 23:04 Albuterol/Ipratropium 3 ml INHALE 04/12/25 23:01 1 each ONCE ONE Administration Magnesium Sulfate 2 gm in 50 mls @ 25 mls/hr 04/12/25 21:49 04/12/25 22:36 Magnesium Sulfate/H2o IV 04/12/25 23:48 Infused ONCE ONE Infusion Methylprednisolone Sodium Succinate 60 mg 04/12/25 21:49 04/12/25 21:57 Methylprednisolone Sod Succ 125 Mg Vial IVPUSH 04/12/25 21:50 60 mg ONCE ONE Administration Medical Decision Making Medical Decision Making MDM Narrative: Patient is a 64 year old assigned female at with a history of COPD presenting to the emergency department today with increased shortness of breath. Patient's physical exam was as noted in the physical exam portion of this note. Patient's blood work was unremarkable. Patient's EKG was unremarkable. Patient's chest x-ray showed no acute process. Patient's clinical presentation is not consistent with sepsis (@1055). Patient's clinical presentation is most consistent with a COPD exacerbation. I spoke with the hosptialist team who agreed to admission. I explained my physical exam findings as well as all test results to the patient and the patient's partner. I answered all questions asked by the patient and the patient's partner. Patient received a breathing treatment, IV magnesium, and IV solu-medrol which, upon re-evaluation, she stated it helped her symptoms some. Patient and the patient's partner verbalized agreement and understanding with this treatment plan and admission. Differential Diagnosis Differential Diagnoses: The differential diagnosis associated with the presentation includes COPD exacerbation Admission/Observation Consideration of admission/observation: Escalation of care including admission/observation considered Patient admitted as noted in the MDM Rationale portion of this note. Consult Healthcare Provider Management of the patient was discussed with: Hospitalist (agreed to admission as noted in the MDM Rationale portion of this note. ) Lab Data [facility] Lab Attestation statement: I reviewed the patient's lab results. My interpretation of these results are in the MDM Rationale portion of this note. 04/12/25 21:36 04/12/25 21:36 Labs: Lab Results 04/12/25 04/12/25 Range/Units 21:35 21:36 WBC 8.9 (4.8-10.8) X10*3/uL RBC 4.58 (4.20-5.50) X10*6/uL Hgb 14.6 (12.0-16.0) g/dl Hct 41.6 (37.0-47.0) % MCV 90.8 (80.0-98.0) fL MCH 31.9 (27.0-33.0) pg MCHC 35.1 H (31.0-35.0) g/dl RDW 13.2 (11.0-16.0) % Plt Count 252 (160-400) X10*3/uL MPV 9.5 (9.4-12.3) fL Immature Gran % (Auto) 0.2 (0.0-0.4) % Neut % (Auto) 34.9 L (45-73) % Lymph % (Auto) 43.3 H (20-40) % [place] % (Auto) 8.0 (2-11) % Eos % (Auto) 12.6 H (0-4) % Baso % (Auto) 1.0 (0-2) % Lymph # (Auto) 3.9 (1.2-4.9) X10*3/uL [place] # (Auto) 0.7 (0.1-1.2) X10*3/uL Eos # (Auto) 1.1 H (0.0-0.4) X10*3/uL Baso # (Auto) 0.1 (0.0-0.2) X10*3/uL Abs Immat Gran (auto) 0.02 (0.00-0.03) X10*3/uL Absolute Neuts (auto) 3.1 (2.0-8.3) x10*3/uL Absolute Nucleated RBC 0.000 (0.0-0.012) X10*3/uL Nucleated RBC % (auto) 0.0 (0.0-0.2) /100WBC Sodium 142 (135-145) mmol/L Potassium 4.2 (3.3-5.1) mmol/L Chloride 111 H (96-108) mmol/L Carbon Dioxide 26 (22-29) mmol/L Anion Gap 9 L (12-20) BUN 14 (9-16) mg/dL Creatinine 0.75 (0.5-1.4) mg/dL Estim Creat Clear Calc 81.6 Estimated GFR > 60 Random Glucose 96 (60-115) mg/dL Calcium 9.2 D (8.4-10.2) mg/dL Magnesium 2.0 (1.6-2.6) mg/dL Total Bilirubin 0.1 (0.0-1.0) mg/dL AST 18 (5-31) U/L ALT 16 (0-31) U/L Alkaline Phosphatase 60 (39-117) U/L Total Protein 6.9 (6.5-8.0) g/dL Albumin 3.9 (3.5-5.0) g/dL Influenza Type A (PCR) NEGATIVE (Negative) Influenza Type B (PCR) NEGATIVE (Negative) RSV RNA Qual (PCR) NEGATIVE (Negative) SARS-CoV-2 RNA (RT-PCR) NEGATIVE (Negative) Independent Interpretation I performed an independent interpretation of an: EKG and Plain X-Ray Interpretation: My interpretation is in agreement with the radiologist's impression of this imaging study. L CLINICAL HISTORY: sob 2 view chest x-ray Comparison: CR/SR - XR CHEST 2V - 04/02/25 09:22 EDT Findings: The lungs are clear. Normal size heart. No acute fracture. IMPRESSION: 1. No acute findings. This document has been electronically signed by: Channing Tobar MD on 04/12/2025 22:28:55 Dictated By: Channing Tobar MD Signed By: Electronically signed by Channing Tobar MD 04/12/25 2229 I independently interpreted this EKG and am in agreement with the below findings: Vent. Rate: 70 BPM Atrial Rate: 70 BPM P-R Int: 130 ms QRS Dur: 80 ms QT Int: 374 ms P-R-T Axes: 69 61 60 degrees QTcB Int: 403 ms Normal sinus rhythm Low voltage QRS Nonspecific ST abnormality When compared with ECG of 23-Mar-2025 09:31, No significant change was found DD/ 28 Radiology Impression Discussion of test interpretation with radiology: I have reviewed the radiologist's reading. Independent Historian Clinical information obtained from an independent historian. History obtained from or confirmed by: Other (patient's partner provided additional history and confirmed the history provided by the patient. ) Critical Care Time Critical Care Time Critical Care Time: Yes Total Critical Care Time: 36 Attestation: I spent 36 minutes of Critical Care Time with this patient. This does not include time spent on separately reported billable procedures. Discharge Plan Discharge Clinical Impression: Acute exacerbation of chronic obstructive pulmonary disease Patient Disposition: Admitted As Inpatient
[2025-04-12 21:52] LABS: Basophils Absolute Auto 0.1 X10*3/uL (0.0-0.2); Eosinophils Absolute Auto 1.1 X10*3/uL (0.0-0.4); Eosinophils Percent Auto 12.6 % (0-4); Hematocrit 41.6 % (37.0-47.0); Hemoglobin 14.6 g/dl (12.0-16.0); Imm Gran Abs Auto 0.02 X10*3/uL (0.00-0.03); Imm Gran Pct Auto 0.2 % (0.0-0.4); Lymphocytes Absolute Auto 3.9 X10*3/uL (1.2-4.9); Lymphocytes Percent Auto 43.3 % (20-40); Mean Corpuscular HGB Conc 35.1 g/dl (31.0-35.0); Mean Corpuscular Hemoglobin 31.9 pg (27.0-33.0); Mean Corpuscular Volume 90.8 fL (80.0-98.0); Mean Platelet Volume 9.5 fL (9.4-12.3); Monocytes Absolute Auto 0.7 X10*3/uL (0.1-1.2); Neutrophils Absolute Auto 3.1 x10*3/uL (2.0-8.3); Neutrophils Percent Auto 34.9 % (45-73); Platelet Count 252 X10*3/uL (160-400); Red Blood Count 4.58 X10*6/uL (4.20-5.50); Red Cell Distribution Width 13.2 % (11.0-16.0); White Blood Count 8.9 X10*3/uL (4.8-10.8)
[2025-04-12 21:57] LABS: Alanine Aminotransferase 16 U/L (0-31); Albumin Level 3.9 g/dL (3.5-5.0); Alkaline Phosphatase 60 U/L (39-117); Anion Gap 9 (12-20); Aspartate Amino Transferase 18 U/L (5-31); Bilirubin Total 0.1 mg/dL (0.0-1.0); Blood Urea Nitrogen 14 mg/dL (9-16); Calcium 9.2 mg/dL (8.4-10.2); Carbon Dioxide 26 mmol/L (22-29); Chloride 111 mmol/L (96-108); Creatinine Clr Calc Pharmacy 81.6; Estimated Glomerular Filt Rate > 60; Glucose Random 96 mg/dL (60-115); Potassium 4.2 mmol/L (3.3-5.1); Sodium 142 mmol/L (135-145); Total Protein 6.9 g/dL (6.5-8.0)
[2025-04-12] MEDS: Magnesium Sulfate/H2O 2 GM/50 ML PIGGYBACK IV (21:57)
[2025-04-12] MEDS: Albuterol Sulfate 7.5 MG, Albuterol Sulfate (0.083%) 2.5 MG 10 MG INHALE (22:08)
[2025-04-12 22:10] VITALS: PULSE 69; RESP 20; O2SAT 93
[2025-04-12 22:23] LABS: Influenza A PCR NEGATIVE (Negative); Influenza B PCR NEGATIVE (Negative); Resp Syncy Virus RNA Qual PCR NEGATIVE (Negative); SARS COV2 PCR INHOUSE NEGATIVE (Negative)
--- NOTE | 2025-04-12 22:36 | PC.NURSE ---
pt a&ox4, respirations even and unlabored. pt reports increased shortness of breath that worsens on exertion. pt reports she had ambulated to the bathroom when she became short of breath. pt sating 98% on room air, 20g placed in right ac, pt medicated per mar, rt at bedside
--- NOTE | 2025-04-12 22:36 | PC.NURSE ---
pt a&ox4, respirations and unlabored. pt noted to have bilateral expiratory wheezing. pt reports hx of copd and reports shortness of breath which increased on ambulation. pt denies chest pain. pt sating 98% on room air. 20g placed in right ac, pt medicated per dec. rt at bedside
[2025-04-12] MEDS: Albuterol Sulfate 7.5 MG, Albuterol/Iprat 2.5/0.5MG 3 ML 3 ML INHALE (23:04)
[2025-04-12 23:05] VITALS: PULSE 88; RESP 20; O2SAT 93
[2025-04-12 23:09] LABS: VBG Base Excess 0.9 mmol/L; VBG HCO3 29 mmol/L (22-26); VBG O2 % Saturation < 30.0 %; VBG pCO2 66 mmHg; VBG pH 7.25 (7.32-7.43); VBG pO2 26 mmHg
[2025-04-12 23:11] LABS: Venous Blood Gas Refer to POC result
[2025-04-12] MEDS: Azithromycin 500 MG TABLET PO (23:29)
[2025-04-13] VITALS (9 sets, daily range): BP systolic 105–154; BP diastolic 50–70; PULSE 76–98; RESP 14–18; TEMP 36.6–36.9; O2SAT 93–98
[2025-04-13] MEDS: Albuterol/Iprat 2.5/0.5MG 3 ML AMPUL.NEB INHALE ×3 (02:03→18:27)
--- NOTE | 2025-04-13 05:24 | P.HPHOSP_ITS ---
History of Present Illness Date of Service: 04/13/25 Chief Complaint: sob 64-year-old female with a past medical history of COPD, tobacco dependence presented to the hospital with a chief complaint of shortness of breath. Patient mentioned that yesterday she woke up with shortness of breath. Has been having cough without any sputum production. Denies any fevers. Denies any sick contacts. Patient denies any chest pain or palpitations. Review of all other systems is negative except mentioned above ER course: Per ER team, patient noted to have wheezing on presentation; saturating 93% on room air; given nebulizations and steroids. Chest x-ray showed no acute cardiopulmonary process. [facility] Medical History Vertigo Hypertension Multiple sclerosis Social History Household Members: Spouse Housing: Apartment Do you presently have visiting nurse or other home services: No Alcohol intake: never Patient Tobacco Use Status: Current everyday Tobacco user Tobacco use type: Cigarette Cigarette Packs Per Day: 1 Cigarettes Per Day: 20.0 Years Smoked: 40 Smoked in Last 30 Days: No Second Hand Smoke Exposure: No Use of substances other than those prescribed or required for medical reasons: No Advance Directives: No Advance Directives Information Provided: Yes Patient : No service: No Meds Allergies Allergy/AdvReac Type Severity Reaction Status Date / Time No Known Allergies Allergy Verified 04/12/25 21:20 Active Medications: Current Medications Acetaminophen (Acetaminophen 325 Mg Tablet) 650 mg PO Q6H PRN PRN Reason: Pain, Mild 1-3,fever,headache Albuterol/Ipratropium (Albuterol/Iprat 2.5/0.5mg 3 Ml Ampul.Neb) 3 ml INHALE Q4H PRN PRN Reason: Shortness of Breath/Wheezing Last Admin: 04/13/25 02:03 Dose: 3 ml Azithromycin (Azithromycin 500 Mg Tablet) 500 mg PO BEDTIME INÉ[facility] Benzonatate (Benzonatate 100 Mg Capsule) 100 mg PO TID PRN PRN Reason: Cough Calcium Carbonate (Calcium Carbonate 750 Mg Tab.Chew) 750 mg PO Q4H PRN PRN Reason: Heartburn Enoxaparin Sodium (Enoxaparin Sodium 40 Mg/0.4 Ml Syringe) 40 mg SUBCUT Q24H INÉS Last Admin: 04/12/25 23:43 Dose: Not Given Famotidine (Famotidine 20 Mg Tablet) 20 mg PO DAILY [facility] Magnesium Hydroxide (Milk Of Magnesia 30 Ml Oral.Susp) 30 ml PO DAILY PRN PRN Reason: Constipation Melatonin (Melatonin 3 Mg Tablet) 6 mg PO BEDTIME PRN PRN Reason: Insomnia Methylprednisolone Sodium Succinate (Methylprednisolone Sod Succ 40 Mg Vial) 40 mg IVPUSH Q6H [facility]1983 Sodium Chloride (0.9 % Sodium Chloride Flush 3 Ml Syringe) 3 ml IVFLUSH QSHIFT [facility] Last Admin: 04/13/25 02:46 Dose: Not Given Physical Exam 2 Vital Signs and Narrative: Vital Signs: Last Vital Signs Temp 98.2 F 04/13/25 01:17 Pulse 84 04/13/25 02:04 Resp 18 04/13/25 02:04 BP 113/50 L 04/13/25 01:17 Pulse Ox 93 04/13/25 01:17 O2 Del Method Room Air 04/13/25 01:17 BMI result Body Mass Index 29.6 Gen: Appears be in no acute distress HEENT: NCAT, Moist mucosa. Pulmonary: Bilateral wheezing present CVS: Normal S1-S2 Abdomen: BS+, Soft, Nontender Extremities: Warm well perfused Neuro: Alert and awake. Results Labs 04/12/25 21:36 04/12/25 21:36 Labs: Laboratory Results - last 24 hr 04/12/25 04/12/25 04/12/25 21:35 21:36 23:05 MCV 90.8 MCH 31.9 MCHC 35.1 H RDW 13.2 Plt Count 252 MPV 9.5 Immature Gran % (Auto) 0.2 Neut % (Auto) 34.9 L Lymph % (Auto) 43.3 H [place] % (Auto) 8.0 Eos % (Auto) 12.6 H Baso % (Auto) 1.0 Lymph # (Auto) 3.9 [place] # (Auto) 0.7 Eos # (Auto) 1.1 H Baso # (Auto) 0.1 Abs Immat Gran (auto) 0.02 Absolute Neuts (auto) 3.1 Absolute Nucleated RBC 0.000 Nucleated RBC % (auto) 0.0 VBG pH 7.25 L VBG pCO2 66 VBG pO2 26 VBG HCO3 29 H VBG O2 Saturation < 30.0 VBG Base Excess 0.9 Anion Gap 9 L Estim Creat Clear Calc 81.6 Estimated GFR > 60 Random Glucose 96 Calcium 9.2 D Magnesium 2.0 Total Bilirubin 0.1 AST 18 ALT 16 Alkaline Phosphatase 60 Total Protein 6.9 Albumin 3.9 Influenza Type A (PCR) NEGATIVE Influenza Type B (PCR) NEGATIVE RSV RNA Qual (PCR) NEGATIVE SARS-CoV-2 RNA (RT-PCR) NEGATIVE Assessment and Plan (1) Acute exacerbation of chronic obstructive pulmonary disease: Status: Acute Plan 64-year-old female with a past medical history of COPD, tobacco dependence presented to the hospital with a chief complaint of shortness of breath. Admitted for following Acute COPD exacerbation: Continue nebulizations standing and p.r.n. Continue Solu-Medrol Trending pulse oximetry been ready for discharge Supplemental oxygen p.r.n. Azithromycin DVT prophylaxis: Lovenox Code status: Full code Quality Stroke Does the patient have a stroke diagnosis?: No VTE Prior VTE?: No VTE Risk Level:: Medical - moderate - high VTE Device Contraindication: Treatment Not Indicated VTE Drug Contraindication: N/A - Med Ordered
[2025-04-13 06:01] LABS: MANUAL DIFF FLAG NO
[2025-04-13 06:23] LABS: Alanine Aminotransferase 16 U/L (0-31); Albumin Level 3.9 g/dL (3.5-5.0); Alkaline Phosphatase 53 U/L (39-117); Anion Gap 18 (12-20); Aspartate Amino Transferase 18 U/L (5-31); Bilirubin Total 0.1 mg/dL (0.0-1.0); Blood Urea Nitrogen 13 mg/dL (9-16); Calcium 9.1 mg/dL (8.4-10.2); Carbon Dioxide 16 mmol/L (22-29); Chloride 111 mmol/L (96-108); Creatinine Clr Calc Pharmacy 95.6; Estimated Glomerular Filt Rate > 60; Glucose Random 191 mg/dL (60-115); Potassium 3.4 mmol/L (3.3-5.1); Sodium 142 mmol/L (135-145)
[2025-04-13 06:30] LABS: Basophils Percent Auto 0.2 % (0-2); Eosinophils Percent Auto 0.1 % (0-4); Hematocrit 40.8 % (37.0-47.0); Hemoglobin 14.2 g/dl (12.0-16.0); Imm Gran Abs Auto 0.04 X10*3/uL (0.00-0.03); Imm Gran Pct Auto 0.4 % (0.0-0.4); Lymphocytes Percent Auto 10.6 % (20-40); Mean Corpuscular HGB Conc 34.8 g/dl (31.0-35.0); Mean Corpuscular Hemoglobin 31.6 pg (27.0-33.0); Mean Corpuscular Volume 90.9 fL (80.0-98.0); Mean Platelet Volume 9.7 fL (9.4-12.3); Monocytes Absolute Auto 0.1 X10*3/uL (0.1-1.2); Monocytes Percent Auto 1.5 % (2-11); Neutrophils Absolute Auto 7.9 x10*3/uL (2.0-8.3); Neutrophils Percent Auto 87.2 % (45-73); Platelet Count 248 X10*3/uL (160-400); Red Blood Count 4.49 X10*6/uL (4.20-5.50); Red Cell Distribution Width 13.3 % (11.0-16.0); White Blood Count 9.1 X10*3/uL (4.8-10.8)
[2025-04-13] MEDS: methylPREDNISolone Sod Succ 40 MG VIAL IVPUSH ×3 (06:30→18:14)
--- NOTE | 2025-04-13 08:32 | PHA.MEDREC ---
Pharmacy Consult ? Medication Reconciliation Pharmacy has completed the medication reconciliation. Patient confirmed to only be on 1 medication at home.
[2025-04-13] MEDS: 0.9 % Sodium Chloride Flush 3 ML SYRINGE IVFLUSH ×3 (08:37→22:19)
[2025-04-13] MEDS: Famotidine 20 MG TABLET PO (08:38)
--- NOTE | 2025-04-13 16:03 | MHC.CM.PN ---
Pt lives with her , she does not have home health services, for DME, she has a nebulizer. PCP is Dr. Cam, but he is retiring, she will find another PCP that takes her insurance, has not done so yet. HCP form completed here and added to chart, naming her . to transport her home at DC, DCP: home, self care. CM to follow for DC needs.
--- NOTE | 2025-04-13 18:51 | HO.PM.IMPN ---
Subjective Subjective Date of Service: 04/13/25 Interval History: Feeling better, breathing improved Still with wheezing and SOB Occasional cough Review of Systems No chest pain or pressure Denies fever, chills, N/V Physical Exam Vital Signs: Vital Signs: Last Vital Signs Temp 98.5 F 04/13/25 14:23 Pulse 87 04/13/25 18:29 Resp 18 04/13/25 18:29 BP 154/68 H 04/13/25 14:23 Pulse Ox 96 04/13/25 14:23 O2 Del Method Room Air 04/13/25 14:23 BMI result Body Mass Index 29.6 General: AOx3, no acute distress Resp: Diminished with diffuse expiratory wheezing CVS: S1, S2, RRR GI: +BS, NT, no distention Skin: Warm, dry Neuro: Cranial nerves II-XII grossly intact bilaterally. Motor grossly intact bilaterally Extremities: No edema Psych: Appropriate affect Objective Data Active Medications Acetaminophen (Acetaminophen 325 Mg Tablet) 650 mg PO Q6H PRN PRN Reason: Pain, Mild 1-3,fever,headache Albuterol/Ipratropium (Albuterol/Iprat 2.5/0.5mg 3 Ml Ampul.Neb) 3 ml INHALE Q4H PRN PRN Reason: Shortness of Breath/Wheezing Last Admin: 04/13/25 18:27 Dose: 3 ml Documented By: ENRIQUE Azithromycin (Azithromycin 500 Mg Tablet) 500 mg PO BEDTIME [facility] Benzonatate (Benzonatate 100 Mg Capsule) 100 mg PO TID PRN PRN Reason: Cough Calcium Carbonate (Calcium Carbonate 750 Mg Tab.Chew) 750 mg PO Q4H PRN PRN Reason: Heartburn Enoxaparin Sodium (Enoxaparin Sodium 40 Mg/0.4 Ml Syringe) 40 mg SUBCUT Q24H [facility] Last Admin: 04/12/25 23:43 Dose: Not Given Documented By: SRINIVAS Non-Admin Reason: Patient Refused Famotidine (Famotidine 20 Mg Tablet) 20 mg PO DAILY [facility] Last Admin: 04/13/25 08:38 Dose: 20 mg Documented By: DEEPA Magnesium Hydroxide (Milk Of Magnesia 30 Ml Oral.Susp) 30 ml PO DAILY PRN PRN Reason: Constipation Melatonin (Melatonin 3 Mg Tablet) 6 mg PO BEDTIME PRN PRN Reason: Insomnia Methylprednisolone Sodium Succinate (Methylprednisolone Sod Succ 40 Mg Vial) 40 mg IVPUSH Q6H [facility] Last Admin: 04/13/25 18:14 Dose: 40 mg Documented By: RADHA Sodium Chloride (0.9 % Sodium Chloride Flush 3 Ml Syringe) 3 ml IVFLUSH QSHIFT [facility] Last Admin: 04/13/25 18:14 Dose: 3 ml Documented By: RADHA Labs 04/13/25 05:38 04/13/25 05:38 Labs: Laboratory Results - last 24 hr 04/12/25 04/12/25 04/12/25 21:35 21:36 23:05 MCV 90.8 MCH 31.9 MCHC 35.1 H RDW 13.2 Plt Count 252 MPV 9.5 Immature Gran % (Auto) 0.2 Neut % (Auto) 34.9 L Lymph % (Auto) 43.3 H [place] % (Auto) 8.0 Eos % (Auto) 12.6 H Baso % (Auto) 1.0 Lymph # (Auto) 3.9 [place] # (Auto) 0.7 Eos # (Auto) 1.1 H Baso # (Auto) 0.1 Abs Immat Gran (auto) 0.02 Absolute Neuts (auto) 3.1 Absolute Nucleated RBC 0.000 Nucleated RBC % (auto) 0.0 VBG pH 7.25 L VBG pCO2 66 VBG pO2 26 VBG HCO3 29 H VBG O2 Saturation < 30.0 VBG Base Excess 0.9 Anion Gap 9 L Estim Creat Clear Calc 81.6 Estimated GFR > 60 Random Glucose 96 Calcium 9.2 D Magnesium 2.0 Total Bilirubin 0.1 AST 18 ALT 16 Alkaline Phosphatase 60 Total Protein 6.9 Albumin 3.9 Influenza Type A (PCR) NEGATIVE Influenza Type B (PCR) NEGATIVE RSV RNA Qual (PCR) NEGATIVE SARS-CoV-2 RNA (RT-PCR) NEGATIVE 04/13/25 05:38 MCV 90.9 MCH 31.6 MCHC 34.8 RDW 13.3 Plt Count 248 MPV 9.7 Immature Gran % (Auto) 0.4 Neut % (Auto) 87.2 H Lymph % (Auto) 10.6 L [place] % (Auto) 1.5 L Eos % (Auto) 0.1 Baso % (Auto) 0.2 Lymph # (Auto) 1.0 L [place] # (Auto) 0.1 Eos # (Auto) 0.0 Baso # (Auto) 0.0 Abs Immat Gran (auto) 0.04 H Absolute Neuts (auto) 7.9 Absolute Nucleated RBC 0.000 Nucleated RBC % (auto) 0.0 VBG pH VBG pCO2 VBG pO2 VBG HCO3 VBG O2 Saturation VBG Base Excess Anion Gap 18 Estim Creat Clear Calc 95.6 Estimated GFR > 60 Random Glucose 191 H Calcium 9.1 Magnesium Total Bilirubin 0.1 AST 18 ALT 16 Alkaline Phosphatase 53 Total Protein 7.0 Albumin 3.9 Influenza Type A (PCR) Influenza Type B (PCR) RSV RNA Qual (PCR) SARS-CoV-2 RNA (RT-PCR) Assessment and Plan (1) Acute exacerbation of chronic obstructive pulmonary disease: Status: Acute Plan 64-year-old female with a past medical history of COPD, tobacco dependence presented to the hospital with a chief complaint of shortness of breath. Admitted to the hospital for likely COPD exacerbation Likely acute COPD exacerbation No formal COPD diagnosis, does not regularly follow with PCP, 46 year smoking hx, recently quit 2-3 weeks ago Continue Duonebs, Solu-Medrol Has not been hypoxic, supplemental oxygen p.r.n. No clear underlying pneumonia, continue Azithromycin for pleotrophic effects Pt admitted earlier in the month for similar symptoms Pulmonary consult to establish care and modify home medications Hx of MS In remission, not on home meds DVT prophylaxis: Lovenox Code status: Full code Pt requires continued hospitalization for continue treatment of COPD exacerbation with bronchodilators, IV steroids, and specialist consultation. Quality Stroke Does the patient have a stroke diagnosis?: No VTE Prior VTE?: No VTE Risk Level:: Medical - moderate - high VTE Device Contraindication: Treatment Not Indicated VTE Drug Contraindication: N/A - Med Ordered
[2025-04-13] MEDS: Enoxaparin Sodium 40 MG/0.4 ML SYRINGE SUBCUT (22:18)
[2025-04-13] MEDS: Azithromycin 500 MG TABLET PO (22:18)
[2025-04-13] MEDS: Benzonatate 100 MG CAPSULE PO (22:20)
[2025-04-14] MEDS: methylPREDNISolone Sod Succ 40 MG VIAL IVPUSH ×3 (00:19→12:42)
[2025-04-14 04:00] VITALS: BP 136/68; PULSE 76; RESP 16; TEMP 36.6; O2SAT 93
[2025-04-14 07:40] VITALS: BP 137/79; PULSE 87; RESP 20; TEMP 36.5; O2SAT 97
[2025-04-14] MEDS: Famotidine 20 MG TABLET PO (08:38)
[2025-04-14] MEDS: Metoprolol Succinate ER 100 MG TAB.ER.24H PO (08:38)
[2025-04-14] MEDS: 0.9 % Sodium Chloride Flush 3 ML SYRINGE IVFLUSH (08:41)
[2025-04-14 11:52] VITALS: BP 150/68; PULSE 62; RESP 20; TEMP 36.8; O2SAT 95
[2025-04-14 14:09] VITALS: PULSE 62; RESP 20; O2SAT 95
[2025-04-14] MEDS: Albuterol/Iprat 2.5/0.5MG 3 ML AMPUL.NEB INHALE (14:09)
[2025-04-14 15:24] VITALS: BP 147/65; PULSE 82; RESP 20; TEMP 36.7; O2SAT 94
--- NOTE | 2025-04-14 16:48 | PM.DS ---
DS: Providers Provider Date of Service: 04/14/25 Date of admission: 04/12/25 22:58 Date of discharge: 04/14/25 Primary care physician: Brian Cam MD DS: Diagnosis Discharge Diagnosis (1) Acute exacerbation of chronic obstructive pulmonary disease: Status: Acute DS: Summary Hospital Course Hospital Course: From admission HPI: Date of Service: 04/13/25 Chief Complaint: sob 64-year-old female with a past medical history of COPD, tobacco dependence presented to the hospital with a chief complaint of shortness of breath. Patient mentioned that yesterday she woke up with shortness of breath. Has been having cough without any sputum production. Denies any fevers. Denies any sick contacts. Patient denies any chest pain or palpitations. Review of all other systems is negative except mentioned above ER course: Per ER team, patient noted to have wheezing on presentation; saturating 93% on room air; given nebulizations and steroids. Chest x-ray showed no acute cardiopulmonary process. Hospital course: Pt was admitted to the hospital for acute exacerbation of undiagnosed COPD. Pt was never hypoxic nor required supplemental oxygen, but was still significantly short of breath and wheezing despite emergency room treatment. Pt continued to be given nebulizers, IV Solu-Medrol, azithromycin, and antihypertensives to good effect. Patient's breathing gradually improved and pt was able to tolerate ambulation and breathing returned to baseline. Pt is still has not yet established with pulmonology, and a referral to Dr. Guerrero has been made. Pt will be started on Trelegy Ellipta maintenance inhaler and should take 1 puff daily to help prevent further COPD exacerbations. Pt has also been prescribed azithromycin 250 mg x4 days and prednisone 40 mg x4 days. Pt should continue her home rescue inhaler and albuterol nebulizer. Pt has recently stopped smoking approximately 3 months ago, and is encouraged maintain nicotine replacement therapy as long as necessary to prevent smoking recurrence. For hypertension, continue metoprolol. Time Attestation Discharge Coordination Time (in mins): 35 Quality: Safe Use of Opioids Does Pt have an Active Cancer Diagnosis on the Problem List?: No Quality: Stroke Does the patient have a stroke diagnosis?: No Physical Exam Vital Signs: Vital Signs: Last Vital Signs Temp 98.1 F 04/14/25 15:24 Pulse 82 04/14/25 15:24 Resp 20 04/14/25 15:24 BP 147/65 H 04/14/25 15:24 Pulse Ox 94 04/14/25 15:24 O2 Del Method Room Air 04/14/25 15:24 BMI result Body Mass Index 29.6 General: AOx3, no acute distress Resp: CTA bilaterally though diminished CVS: S1, S2, RRR GI: +BS, NT, no distention Skin: Warm, dry Neuro: Cranial nerves II-XII grossly intact bilaterally. Motor grossly intact bilaterally Extremities: No edema Psych: Appropriate affect Discharge Plan Discharge Anticipated Discharge Date/Time: 04/14/25 16:26 Patient Disposition: Home, Self-Care Discharge Diagnosis: Acute exacerbation of chronic obstructive pulmonary disease Referrals: Brian Cam MD [Primary Care Provider, Internal Medicine] - 1 Week Parviz Harper MD [Physician, Pulmonology] - 1 Week Discharge Medications: New azithromycin 250 mg tablet 250 mg PO DAILY Qty: 4 0RF Rx Instructions: Take one pill daily for the next 4 days prednisone 20 mg tablet 40 mg PO DAILY Qty: 8 0RF Rx Instructions: Take two tablets (40mg) once a day for the next 4 days Trelegy Ellipta 100-62.5-25 mcg blister with device 1 inh inhalation DAILY Qty: 28 0RF Rx Instructions: Take one puff daily for COPD albuterol sulfate 2.5 mg /3 mL (0.083 %) solution for nebulization 2.5 mg inhalation Q4H PRN (Reason: wheezing) Qty: 180 0RF Continued metoprolol succinate 100 mg tablet extended release 24 hr 100 mg PO DAILY Discharge Orders: Discharge Order (Routine); Ordered 04/14/25 Ordered By: Osei Ruggiero Activity on Discharge: As tolerated Stand Alone Forms: Patient Portal Discharge page Print Language: Greenlandic Care Plan Goals: Resolution of symptoms Preventing further COPD exacerbations and hospitalizations Health Concerns: COPD exacerbation Plan of Treatment: Take azithromycin 250 mg daily for the next 4 days for COPD exacerbation Take prednisone 40 mg daily for the next 4 days for COPD exacerbation New prescription for Trelegy Ellipta: Take 1 puff daily as maintenance to prevent COPD exacerbation Use rescue inhaler as needed for SOB/wheezing Use albuterol nebulizer q.4 hours p.r.n. for SOB/wheezing Follow up outpatient with Dr. Harper in pulmonology to establish care; referral has been made Assessment: See discharge summary
== END 2025-04-14 17:44 | disposition home or self-care (01) | DRG 140 ==
LOC: HO.ED 23:06 → HO.EDOVER 23:29 → HO.IMC 04-13 12:47
PROVIDERS: Physician Assistant Medical; Admitting Provider Hospitalist; Emergency Provider Emergency Medicine Emergency Medical Services; PCP Internal Medicine; Visit Provider Student in an Organized Health Care Education/Training Program
DX: J44.1 Chronic obstructive pulmonary disease with (acute) exacerbation (principal); F17.210 Nicotine dependence, cigarettes, uncomplicated; Z71.6 Tobacco abuse counseling; G35 Multiple sclerosis; Z20.822 Contact with and (suspected) exposure to COVID-19; Z79.899 Other long term (current) drug therapy
CPT/HCPCS: 0241U; 36415; 71046; 80053; 82803; 83735; 85025; 93005; 94640; 99222; 99285; J1650; J2919; J3475

== ENCOUNTER → 2025-04-12 21:29 | Outpatient (BNV) | payer OTHER, SELFPAY | PROVIDERS: Admitting Provider Hospitalist; Emergency Provider Emergency Medicine Emergency Medical Services; PCP Internal Medicine; Visit Provider Internal Medicine Cardiovascular Disease | DX: R94.31 Abnormal electrocardiogram [ECG] [EKG] (principal); R06.02 Shortness of breath | CPT/HCPCS: 93010 ==

== ENCOUNTER → 2025-04-12 22:58 | Outpatient (BNV) | payer OTHER, SELFPAY | PROVIDERS: Admitting Provider Hospitalist; Emergency Provider Emergency Medicine Emergency Medical Services; PCP Internal Medicine; Visit Provider Hospitalist | DX: J44.1 Chronic obstructive pulmonary disease with (acute) exacerbation (principal) | CPT/HCPCS: 99222; 99499 ==

== ENCOUNTER 2025-05-26 15:09 | Outpatient (AMB) | payer OTHER, SELFPAY ==
--- NOTE | 2025-05-26 15:16 | A.OFFVIS_ITS ---
Vital Signs 05/26/25 15:19 Height 5 ft 5 in Weight 186 lb 4.65 oz BMI 31.0 BP 140/82 H Blood Pressure Location Lt brachial Position Sitting Pulse 97 Pulse Source Pulse Oximeter Pulse Oximetry (%) 97 Oxygen Delivery Method Room Air Intake Visit Reasons: COPD/[facility] DC Follow Up Intake Note: pt is here as a new patient for follow up from the ER about 4 times for shortness of breath and wheeze. Process Description Writer Required: No Allergies No Known Allergies Allergy (Verified 05/26/25 15:53) Medication List - Last Reconciled 05/26/25 by Maria Del Carmen Kaur MD albuterol sulfate 2.5 mg (3 mL) inhalation Q4H PRN brvthtlvczi-lbuhalsag-ovtprzud 100-62.5-25 mcg (Trelegy Ellipta) 1 inh inhalation DAILY metoprolol succinate ER 100 mg PO DAILY Do you need a note to return to daycare/school/sports/work: No HPI HPI COPD/[facility] DC Follow Up: Details: THIS PATIENT IS 64 YEARS OLD FEMALE BEING SEEN FOR THE 1ST TIME FOR PULMONARY EVALUATION AND FOLLOW-UP. SINCE JULY 2024 SHE HAS HAD RECURRENT EXACERBATIONS OF COPD, FROM HER LAST VISIT OVER THERE SHE HAS BEEN STARTED ON TRELEGY ELLIPTA 1 INHALATION DAILY AND SINCE THEN SHE IS DOING WELL. SHE CLAIMS THAT BECAUSE OF TRELEGY ELLIPTA SHE DID NOT HAVE TO GO BACK TO THE EMERGENCY ROOM. THIS PATIENT HAS BEEN A LONG-TIME SMOKER FROM HER ADULT AGE UP UNTIL NOW, SHE HAS TRIED TO QUIT A FEW TIMES GOES BACK TO SMOKING. CURRENTLY 15 CIGARETTES A DAY. SHE DOES HAVE NICOTINE PATCHES AT HOME BUT HAS NOT USED. SHE HAS USED NICOTINE GUM OFF AND ON WITHOUT MUCH SUCCESS. TODAY SHE WALKED INTO THE OFFICE AND WAS NOT NOTICED TO BE SHORT OF BREATH. SHE ALSO HAS HISTORY OF MULTIPLE SCLEROSIS MAINLY AFFECTING HER LOWER EXTREMITIES, SHE WAS ON SOME TREATMENT FOR 7-8 YEARS AND THEN THINGS WERE STABLE AND SHE WAS ABLE TO STOP THE MEDICATION. DOES NOT KNOW THE NAME OF MEDICATION AT THIS TIME, MAY BE SMALL DOSE STEROIDS. [facility] Medical History (Updated 05/26/25 @ 16:18 by Maria Del Carmen Kaur MD) COPD (chronic obstructive pulmonary disease) Respiratory failure with hypercapnia Smoker Vertigo Hypertension Multiple sclerosis Social History Household Members: Spouse Housing: Apartment Do you presently have visiting nurse or other home services: No Alcohol intake: never Patient Tobacco Use Status: Former Tobacco user Tobacco use type: Cigarette Cigarette Packs Per Day: 1 Cigarettes Per Day: 15 Years Smoked: 40 Second Hand Smoke Exposure: No service: No Review of Systems Const All systems reviewed & are unremarkable except as noted in HPI and below Eyes Reports no additional complaints ENT Reports no additional complaints Card Denies chest pain, Denies irregular heart rhythm and Denies leg edema Resp Reports as per HPI GI Reports no additional complaints Reports no additional complaints Musc Reports no additional complaints Skin/Breast Reports other (HAS SKIN TAGS ON HER FACE AND ARMS SINCE ) Neuro Reports no additional complaints Psych Reports no additional complaints Endo Reports no additional complaints Nolberto/Lymph Reports no additional complaints Physical Exam Vital Signs: Last Vital Signs Pulse 97 05/26/25 15:19 BP 140/82 H 05/26/25 15:19 Pulse Ox 97 05/26/25 15:19 Oxygen Delivery Method Room Air 05/26/25 15:19 BMI result Body Mass Index 31.0 Const General: healthy appearing, comfortable, no acute distress, alert and awake Orientation/consciousness: patient oriented x3 HEENT Head: Yes normal to inspection General nose exam: No nasal polyps present and No nasal discharge present Face and sinus: Yes sinuses nontender Mouth: oropharynx normal Throat: Yes posterior oropharynx normal Eyes General: appearance normal, both eyes and all related structures Neck Neck: Yes normal visual inspection, Yes no lymphadenopathy, Yes trachea midline and Yes no JVD Thyroid: Thyroid normal Chest Chest palpation & inspection: normal inspection of the chest, normal palpation of entire chest wall and no tenderness Resp Other: CHEST IS SYMMETRICAL. PERCUSSION NOTE RESONANT. BREATH SOUNDS ARE SLIGHTLY DISTANT WITH PROLONGED EXPIRATORY PHASE. NO WHEEZES OR RHONCHI ARE HEARD. Cardio Palpation: normal PMI Rate: regular rate Rhythm: regular rhythm Heart sounds: no gallops and no murmurs Peripheral pulses: Peripheral pulses 2+ throughout GI Palpation (GI): Soft to palpation, nontender, No hepatosplenomegaly present and no masses Auscultation: normal bowel sounds Back/Spine/Pelvis Thoracic/Lumbar Spine: thoracic and lumbar spine normal to inspection Skin General skin exam: no rashes or lesions noted Lesions: lesion noted (MULTIPLE VERRUCAE ON THE FACE, MORE ON THE RIGHT SIDE) Neuro General: patient oriented x3 and no focal motor deficits Cranial nerves: Yes CN's II-XII intact bilaterally Extrem General: Yes normal to inspection, Yes no clubbing, cyanosis or edema and Yes no calf tenderness Psych Appearance: grossly normal and well kempt Speech and movement: Normal speech and movement present Results Reviewed Results Reviewed: CHEST X-RAY NOT REMARKABLE. CBC NORMAL NO EOSINOPHILIA NOTED. BLOOD GASES 04/13/2025 PH 7.25 PCO2 66 PO2 26 C/W RESPIRATORY ACIDOSIS Assessment & Plan Assessment & Plan (1) Smoker: Comment: [employer] SMOKER, FOR AT LEAST 40 YEARS, 1 PACK A DAY, CURRENTLY DOWN TO 15 CIGARETTES A DAY. Code(s): F17.200 - Nicotine dependence, unspecified, uncomplicated Category: Social Hx Plan: TALKED TO HER IN DETAIL ABOUT NEED TO QUIT SMOKING, PLANS TO REDUCE. THE CIGARETTES GRADUALLY HE IS GOING TO START USING THE NICOTINE PATCH 21 MG 1 PATCH DAILY, SHE DOES HAVE IT AT HOME. ALSO WOULD BE REFERRED TO AN WILL LUNG SCREENING PROGRAM . (2) COPD (chronic obstructive pulmonary disease): Comment: IT SEEMS THAT SHE DOES HAVE MODERATELY ADVANCED CHRONIC OBSTRUCTIVE PULMONARY DISEASE ALREADY. HISTORY OF FREQUENT ACUTE EXACERBATIONS, CURRENTLY CONTROLLED AND STABLE WITH THE USE OF TRELEGY ELLIPTA ONCE A DAY. .PRESCRIPTION RENEWED Code(s): J44.9 - Chronic obstructive pulmonary disease, unspecified Category: Medical Plan: PATIENT NEEDS TO HAVE PULMONARY FUNCTION TEST, AND THEN WILL DECIDE IF WE COULD DOWNGRADE TRELEGY ELLIPTA OR MODIFIED THE TREATMENT REGIMEN. PATIENT IS INSTRUCTED NOT TO USE TRELEGY ELLIPTA WITHIN 24 HOURS BEFORE THE PULMONARY FUNCTION TESTING. ALBUTEROL HFA 2 PUFFS Q 6 HOURS P.R.N.. (3) Respiratory failure with hypercapnia: Comment: THE LAST 2 VENOUS BLOOD GAS WHEN SHE WAS IN THE HOSPITAL, WAS 66 ( 7.25,PCO2 66, PO2 26 ) C/W ACUTE HYPERCAPNIC RESPIRATORY FAILURE. CLINICALLY HAS IMPROVED AND WILL NEED TO BE RECHECKED PERIODICALLY. Code(s): J96.92 - Respiratory failure, unspecified with hypercapnia Category: Medical Plan: WILL RECHECK VENOUS BLOOD GAS ON HER NEXT VISIT Orders: Orders PFT pulmonary function test Today F17.200 - Nicotine dependence, unspecified, uncomplicated, J44.9 - Chronic obstructive pulmonary disease, unspecified, J96.92 - Respiratory failure, unspecified with hypercapnia Referrals Lung Cancer Screening Referral F17.200 - Nicotine dependence, unspecified, uncomplicated, J44.9 - Chronic obstructive pulmonary disease, unspecified, J96.92 - Respiratory failure, unspecified with hypercapnia Medications: Changed From zmtgbxtlnmf-uissyemfk-dkyafaaq 100-62.5-25 mcg (Trelegy Ellipta) Take one puff daily for COPD 1 inh inhalation DAILY 28 ea 0RF To ewnejkzqwdz-ptptathuy-yvouyfxy 100-62.5-25 mcg (Trelegy Ellipta) Take one puff daily for COPD 1 inh inhalation DAILY 28 ea 3RF COPD 30 days Discontinued azithromycin Take one pill daily for the next 4 days Discontinued Reason: Patient Completed Course 250 mg PO DAILY 4 tabs 0RF prednisone Take two tablets (40mg) once a day for the next 4 days Discontinued Reason: Patient Completed Course 40 mg (2 x 20 mg) PO DAILY 8 tabs 0RF Coding Level of Care Code New Pt Level 4 (73929) Diagnoses Smoker F17.200 COPD (chronic obstructive pulmonary disease) J44.9 Respiratory failure with hypercapnia J96.92
[2025-05-26 15:19] VITALS: BP 140/82; PULSE 97; O2SAT 97; BMI 31.0
== END 2025-05-26 16:00 | disposition home or self-care (01) ==
LOC: HO.HPS 15:09
PROVIDERS: PCP Internal Medicine; Visit Provider Internal Medicine
DX: F17.200 Nicotine dependence, unspecified, uncomplicated (principal); J44.9 Chronic obstructive pulmonary disease, unspecified; J96.92 Respiratory failure, unspecified with hypercapnia
CPT/HCPCS: 99204

== ENCOUNTER → 2025-05-26 15:09 | Outpatient (BNVA) | payer OTHER, SELFPAY | PROVIDERS: PCP Internal Medicine; Visit Provider Internal Medicine | DX: J44.9 Chronic obstructive pulmonary disease, unspecified (principal); J96.92 Respiratory failure, unspecified with hypercapnia; F17.200 Nicotine dependence, unspecified, uncomplicated | CPT/HCPCS: 99202 ==

== ENCOUNTER 2025-06-04 10:11 | Outpatient (AMB) | payer OTHER, SELFPAY ==
--- NOTE | 2025-06-04 10:14 | MHC.OFFVIS ---
Vital Signs 06/04/25 10:15 Height 5 ft 5 in Weight 186 lb BMI 30.9 BP 141/61 H Blood Pressure Location Lt brachial Position Sitting Pulse 88 Pulse Oximetry (%) 96 Oxygen Delivery Method Room Air Intake Visit Reasons: Occult blood Intake Note: Patient new consult for occult blood. Patient denies any GI issues. Never have Colonoscopy before. [employer] Required: No Accompanied by: Self / Same As Patient Allergies No Known Allergies Allergy (Verified 06/04/25 10:24) Medication List - Last Reconciled 06/04/25 by Kaitlin Willams CNP albuterol sulfate 2.5 mg (3 mL) inhalation Q4H PRN ybfkitonrlt-mgrnzoath-wyctgvln 100-62.5-25 mcg (Trelegy Ellipta) 1 inh inhalation DAILY 30 days metoprolol succinate ER 100 mg PO DAILY HPI HPI Occult blood: Details: Patient is a 64-year-old female with PMH of nicotine dependence, COPD, hypertension and MS. Referred by PCP for further evaluation of blood in stools. She denies any visible blood in stools. She reports a longstanding pattern of having 2-4 bowel movements daily, stating stools vary in consistency but are generally normal or large, without being hard or requiring straining. She denies any diarrhea, abdominal pain, nausea, vomiting, changes in appetite, or unexplained weight loss. However, she has gained approximately 10 pounds over the last three months, attributed to resumed smoking cessation and increased eating. She reports infrequent heartburn occurring approximately 3-4 times per month, which resolves with onui-req-khrsrsc antacids (Tums). She denies regurgitation, dysphagia, or recent fever or systemic symptoms. There is no history of prior colonoscopy or rectal bleeding visible to the eye. Social hx: -Minimal ? approximately three shots at a family event, no regular consumption. -denies recreational drug use -current smoker, recent brief six week cessation - family hx as below -denies personal hx of CA -tolerated anesthesia in the past without difficulty. [facility] Medical History (Updated 06/04/25 @ 17:13 by Kaitlin Willams CNP) Acid reflux Colon cancer screening COPD (chronic obstructive pulmonary disease) Respiratory failure with hypercapnia Smoker Vertigo Hypertension Multiple sclerosis Social History Household Members: Spouse Housing: Apartment Do you presently have visiting nurse or other home services: No Alcohol intake: never Patient Tobacco Use Status: Former Tobacco user Tobacco use type: Cigarette Cigarette Packs Per Day: 1 Cigarettes Per Day: 15 Years Smoked: 40 Second Hand Smoke Exposure: No service: No Review of Systems Const Reports as per HPI ENT Reports as per HPI Card Reports as per HPI Resp Reports as per HPI GI Reports as per HPI Reports as per HPI Physical Exam Vital Signs: Last Vital Signs Pulse 88 06/04/25 10:15 BP 141/61 H 06/04/25 10:15 Pulse Ox 96 06/04/25 10:15 Oxygen Delivery Method Room Air 06/04/25 10:15 BMI result Body Mass Index 30.9 Const General: healthy appearing, no acute distress and well developed Nutritional Appearance: average body habitus Orientation/consciousness: patient oriented x3 HEENT Head: Yes normal to inspection, Yes normocephalic and Yes atraumatic Face and sinus: Yes normal facial exam Eyes General: appearance normal, both eyes and all related structures Neck Neck: Yes normal visual inspection Resp Effort & Inspection: normal respiratory effort, able to speak in complete sentences, no tracheal deviation and symmetric chest movement Auscultation: clear to auscultation bilaterally Cardio Jugular venous distension: no JVD Rate: regular rate Rhythm: regular rhythm Heart sounds: S1 normal heart sound present, S2 normal heart sound present, no gallops and no murmurs GI Inspection: Yes normal to inspection, No distended, Yes obesity and Yes striae Palpation (GI): Soft to palpation, not firm, nontender and No hepatosplenomegaly present Auscultation: normal bowel sounds Neuro General: patient oriented x3 Gait exam (Neuro): Normal gait present Psych Appearance: grossly normal Mental Status: mental status grossly normal Speech and movement: Normal speech and movement present Affect: normal affect Attitude: cooperative Thought process: Normal thought process present Thought content: Normal thought content present Insight: Good insight present (Psych) Judgement: Good judgement present (Psych) Assessment & Plan Assessment & Plan (1) Colon cancer screening: Code(s): Z12.11 - Encounter for screening for malignant neoplasm of colon Category: Medical Plan: Positive occult blood testing without visible stool abnormalities warrants further investigation for potential sources such as colon polyps or malignancy. Medications: -prescriptions for laxative tablets and MiraLax sent to pharmacy; instructions for Gatorade purchase and clear liquid diet given.n. Patient educated on scheduling process, procedure preparation, including avoiding certain foods and ensuring clear liquid intake Advised on necessity for ride post-procedure due to sedation. (2) Acid reflux: Code(s): K21.9 - Gastro-esophageal reflux disease without esophagitis Category: Medical Qualifiers: Esophagitis presence: esophagitis presence not specified Qualified Code(s): K21.9 - Gastro-esophageal reflux disease without esophagitis Plan: Patient reports infrequent heartburn episodes managed with antacids, with no regurgitation or indication of severe GERD. Additional Testing: Upper endoscopy to monitor for possible tissue changes in the esophagus or stomach. Medication Management: Continue symptomatic management with antacids as needed. Education on GERD prevention : -Advised against heavy meals; encouraged small, frequent meals instead of large ones. - Instructed to remain upright for 2?3 hours after eating. - Advised to avoid late-night meals, spicy foods, caffeine, alcohol, known dietary triggers, and tight-fitting clothing. - Emphasis placed on gradual implementation of lifestyle changes to improve adherence and symptom control. Plan Follow-up after endoscopy or sooner as needed Time: I spent a total of 30 minutes on the date of encounter which includes: Preparing to see the patient (reviewed previous documentation, test results and medical history) Performing a medically appropriate exam and/or evaluation Ordering medications, tests, and procedures Documenting clinical information in the health record Medications: New bisacodyl (Dulcolax (bisacodyl)) Take four tablets pre colonoscopy instructions 20 mg (4 x 5 mg) PO ONCE 4 tabs 0RF 1 day polyethylene glycol 3350 (Miralax) per colonoscopy prep instructions 238 grams PO ONCE 238 grams 0RF Coding Level of Care Code New Pt New Pt Level 3 (37689) Patient Type New Diagnoses Colon cancer screening Z12.11 Gastroesophageal reflux disease, unspecified whether esophagitis present K21.9 Esophagitis presence: esophagitis presence not specified
[2025-06-04 10:15] VITALS: BP 141/61; PULSE 88; O2SAT 96; BMI 30.9
== END 2025-06-04 10:50 | disposition home or self-care (01) ==
LOC: HO.HGI 10:11
PROVIDERS: PCP Internal Medicine; Visit Provider Nurse Practitioner Family
DX: Z01.818 Encounter for other preprocedural examination (principal); Z12.11 Encounter for screening for malignant neoplasm of colon; K21.9 Gastro-esophageal reflux disease without esophagitis
CPT/HCPCS: 99203

== ENCOUNTER → 2025-06-04 10:11 | Outpatient (BNVA) | payer OTHER, SELFPAY | PROVIDERS: PCP Internal Medicine; Visit Provider Nurse Practitioner Family | DX: Z01.818 Encounter for other preprocedural examination (principal); K21.9 Gastro-esophageal reflux disease without esophagitis | CPT/HCPCS: 99202 ==

== ENCOUNTER 2025-07-25 09:53 | Outpatient (AMB) | payer OTHER, SELFPAY ==
--- NOTE | 2025-07-25 07:58 | MHC.OFFVIS ---
Intake Visit Reasons: Current Smoker Allergies No Known Allergies Allergy (Verified 06/04/25 10:24) HPI HPI Current Smoker: Details: Initial visit for this 64yo smoker with a 40PYH. Patient started smoking at age 18 for 46 years at 3/4-1ppd. She quit for a period of 2 months recently but restarted due to stress. . Denies marijuana use. Denies second hand smoke exposure. Denies exposure to chemicals or substances like asbestos. . Denies known family history of lung cancer. Denies personal history of cancers. Denies chest CT in last year. . Denies recent travel outside the [place]. Denies recent respiratory illness or recent hospitalization for respiratory issues. Denies testing positive for COVID. Admits receiving COVID Vaccine. . Denies fever, chills, new/worsening cough, hemoptysis, hoarseness or dysphagia. Denies significant chest pain, significant dyspnea or unintentional weight loss. Patient Lung Cancer Screening Questionnaire reviewed with patient by provider. . Shared Decision Making Completed. Patient meets criteria. Discussed in detail with patient, the risk vs benefit of LDCT screening. Patient consents to proceed with scan. Discussed smoking cessation. [facility] Medical History (Updated 07/25/25 @ 10:08 by Camille Burrell PA-C) Multiple sclerosis Hypertension Respiratory failure with hypercapnia COPD (chronic obstructive pulmonary disease) Nicotine dependence, cigarettes, uncomplicated Acid reflux Osteopenia Vertigo Colon cancer screening Surgical History (Updated 07/25/25 @ 10:10 by Camille Burrell PA-C) History of tonsillectomy and adenoidectomy Social History (Updated 07/25/25 @ 10:08 by Camille Burrell PA-C) Household Members: Spouse Housing: Apartment Do you presently have visiting nurse or other home services: No Alcohol intake: never Patient Tobacco Use Status: Current everyday Tobacco user Tobacco use type: Cigarette Cigarettes Per Day: 15 Years Smoked: (onset 18yo, 3/4-1ppd x 46yrs, 40pyh) Second Hand Smoke Exposure: No service: No Assessment & Plan Assessment & Plan (1) Nicotine dependence, cigarettes, uncomplicated: Comment: (onset 18yo, 3/4-1ppd x 46yrs, 40pyh) Code(s): F17.210 - Nicotine dependence, cigarettes, uncomplicated Category: Medical Plan: - SDM visit completed today in office. - Patient meets criteria for LDCT for lung cancer screening purposes and is asymptomatic. - Smoking cessation counseling offered. Patients can always call [phone]. - Will arrange for a LDCT scan of the chest for screening purposes at [facility]. - Risks, benefits, and alternatives were discussed in detail and the patient agrees to proceed. - Risks discussed include but are not limited to: radiation exposure, anxiety during testing and while awaiting results, false negatives, false positives and possibility of additional intervention such as further imaging or surgical procedures for benign disease. - Benefits are obviously detection of lung cancer at an early stage which can lead to improved outcomes. - Discussed the importance of screening program compliance with adherence to yearly LDCT scan as scheduled - or sooner interval scans for personalized screening regimen. - Discussed follow up plan. Our office will send a letter discussing results and if needed set up phone call and office visit based on CT findings. - Patient educated on results categorization and the management decisions for suspicious findings potentially found on the screening LDCT scan. Any patient with a Lung RADS score of 3 or 4 will be reviewed by a multidisciplinary team at [facility] to form a plan of action in regards to scan findings. - If further work up is warranted for a suspicious lung finding this will be followed by the Lung Cancer Screening program in conjunction with the Thoracic Surgery Department at [facility]. - A copy of the office note and LDCT will be sent to the patient's PCP - as well as documentation on any associated further plans of care. - Incidental findings on LDCT are the PCP's responsibility. These findings are indicated with an S finding on the LDCT Assessment. A note discussing the findings will be sent to the PCP who is then responsible for further management. - All questions answered.? Coding Level of Care Code Lung Cancer Screening G0296 Diagnoses Nicotine dependence, cigarettes, uncomplicated F17.210
== END 2025-07-25 10:28 | disposition home or self-care (01) ==
LOC: HO.HPS 09:53
PROVIDERS: PCP Internal Medicine; Referring Provider Internal Medicine; Visit Provider Physician Assistant Medical
DX: F17.210 Nicotine dependence, cigarettes, uncomplicated (principal)
CPT/HCPCS: G0296

== ENCOUNTER 2025-07-25 10:14 | Outpatient (REF) | payer OTHER, SELFPAY ==
--- NOTE | ~2025-07-25 | CT_ITS ---
EXAMINATION: CT LUNG SCREENING HISTORY: F17.210 - Nicotine dependence, cigarettes, uncomplicated TECHNIQUE: Low dose axial images were obtained from the sternal notch to upper abdomen without IV contrast per standard departmental protocol. Sagittal and coronal reformatted images were also obtained and reviewed. One or more of the following techniques was used for dose reduction: Automated exposure control, adjustment of the mA and/or kV according to patient size, use of iterative reconstruction technique. DLP: 55 mGy-cm COMPARISON: Correlation is made with PA and lateral views of the chest dated 04/12/2025. FINDINGS: Lung nodules: There are punctate nodules at the right lung apex (series 4, image 18), and in the right middle lobe (series 4, image 91). There are nodules measuring up to 4 mm in size in the right middle lobe (series 4, image 102), at the left lung apex (series 4, image 21), and in the more inferior aspect of the left upper lobe (image 4, image 76). Emphysema: mild Coronary Calcification: mild Aortic Arch Calcification: mild Potentially Significant Incidentals : There is a 1.8 x 0.9 cm hyperdense lesion at the upper pole of the right kidney. Additional Chest Findings: There is no pleural or pericardial effusion. No mediastinal or axillary lymphadenopathy is identified. Visualized upper abdomen: The visualized portions of the liver, spleen, and adrenals have an unremarkable unenhanced appearance. CT/CT lung screening IMPRESSION: 1. No suspicious pulmonary nodules are identified. 2. 1.8 x 0.9 cm hyperdense lesion at the upper pole of the right kidney. Renal ultrasound is recommended to determine whether this represents a hyperdense cyst or a solid mass. LUNG-RADS ASSESSMENT: Lung-RADS 2: Benign MANAGEMENT: Continue annual screening with LDCT in 12 months Category S: S Electronically signed by: Adrian Lee MD 07/25/2025 10:44 AM EDT
== END 2025-07-25 10:15 | disposition home or self-care (01) ==
LOC: HO.CT 10:14
PROVIDERS: PCP Internal Medicine; Visit Provider Physician Assistant Medical
DX: Z12.2 Encounter for screening for malignant neoplasm of respiratory organs (principal); F17.210 Nicotine dependence, cigarettes, uncomplicated
CPT/HCPCS: 71271; G0296

== ENCOUNTER → 2025-07-25 10:16 | Outpatient (BNV) | payer OTHER, SELFPAY | PROVIDERS: PCP Internal Medicine; Visit Provider Radiology Diagnostic Radiology | DX: F17.210 Nicotine dependence, cigarettes, uncomplicated (principal) | CPT/HCPCS: 71271 ==

== ENCOUNTER 2025-07-30 10:50 | Outpatient (REF) | payer OTHER, SELFPAY ==
--- NOTE | 2025-07-30 10:54 | PFT_ITS ---
Flows: FEV1: 77 % of predicted at 1.94 L FVC: 80 % of predicted at 2.55 L FEV1/FVC: 76 % Bronchodilator response: Absent Volumes: Total lung capacity: 84 % of predicted at 4.42 L Residual volume: 97 % of predicted at 1.78 L Slow vital capacity: 77 % of predicted at 2.63 L Expiratory reserve volume: 25 % of predicted at 0.21 L Diffusion capacity: Normal Impression: No obstructive or restrictive ventilatory defect. No bronchodilator response. Decreased expiratory reserve volume suggests extrathoracic restriction likely secondary to abdominal obesity. MTDD
[2025-07-30 11:31] VITALS: PULSE 83; O2SAT 99
[2025-07-30 11:32] VITALS: PULSE 83; O2SAT 99
== END 2025-07-30 10:51 | disposition home or self-care (01) ==
LOC: HO.RESP 10:50
PROVIDERS: Visit Provider Internal Medicine
DX: J44.9 Chronic obstructive pulmonary disease, unspecified (principal); J96.92 Respiratory failure, unspecified with hypercapnia; F17.210 Nicotine dependence, cigarettes, uncomplicated
CPT/HCPCS: 94010; 94640; 94727; 94729

== ENCOUNTER → 2025-07-30 10:54 | Outpatient (BNV) | payer OTHER, SELFPAY | PROVIDERS: Visit Provider Internal Medicine Pulmonary Disease | DX: J96.92 Respiratory failure, unspecified with hypercapnia (principal) | CPT/HCPCS: 94060; 94727; 94729 ==

== ENCOUNTER 2025-08-13 13:23 | Outpatient (AMB) | payer OTHER, SELFPAY ==
--- NOTE | 2025-08-13 13:24 | MHC.PC.OV ---
Vital Signs 08/13/25 13:27 08/13/25 16:30 Height 5 ft 5 in Weight 192 lb 4 oz BMI 32.0 BP 179/85 H 152/72 H Blood Pressure Location Rt brachial Position Sitting Pulse 90 Pulse Source Pulse Oximeter Temp 98.2 F Temp Source Temporal Artery Scan Pulse Oximetry (%) 96 Oxygen Delivery Method Room Air Intake Visit Reasons: establish care/ needs mammo referral Accompanied by: Self / Same As Patient Allergies No Known Allergies Allergy (Verified 08/13/25 13:43) Medication List - Last Reconciled 08/13/25 by Jannie Ames PA-C albuterol sulfate 2.5 mg (3 mL) inhalation Q4H PRN bisacodyl (Dulcolax (bisacodyl)) 20 mg (4 x 5 mg) PO ONCE 1 day jrpidqzklvi-lgmnuqdqy-cdewdkbp 100-62.5-25 mcg (Trelegy Ellipta) 1 inh inhalation DAILY 30 days metoprolol succinate ER 100 mg PO DAILY polyethylene glycol 3350 (Miralax) 238 grams PO ONCE Tobacco use date assessed: 08/13/25 Dental Screening Dental Screen Date: 08/13/25 Did you have a dental visit in the last 12 months?: No HPI establish care/ needs mammo referral HPI Details The patient is a 64-year-old female presenting for a wellness visit and management of chronic conditions. The patient has a history of hypertension, which has been noted to be elevated since March, with readings above the desired level of 140/90 mmHg. She is currently on metoprolol extended release 100 mg for blood pressure management, but it has not been adequately controlling her hypertension. The patient has been identified as prediabetic with an A1c of 5.9%. She has been advised to monitor her sugar intake, particularly from pasta and bread, which she consumes regularly. A hyperdense lesion measuring 1.8 x 0.9 cm was found at the upper pole of the right kidney during a CT scan for lung nodules. The patient is concerned about this finding and has requested further evaluation with a renal ultrasound. The patient has a history of smoking and has been diagnosed with Chronic Obstructive Pulmonary Disease (COPD). She has experienced weight gain of approximately 20 pounds over the last six months, which she attributes to the use of Trelegy, a medication containing steroids. A heart murmur was detected during the physical examination, which the patient was previously unaware of despite multiple hospital visits. The patient denies experiencing chest pain or shortness of breath with activity. The patient has a family history of breast cancer, with her mother having had the condition twice. She has not had a mammogram in several years, and a screening has been ordered. Social History - Smoking: The patient has a history of smoking, which is associated with her COPD diagnosis. - Diet: The patient consumes pasta and bread regularly, which is relevant to her prediabetes management. [facility] Medical History (Updated 08/13/25 @ 16:35 by Jannie Ames PA-C) Class 1 obesity with body mass index (BMI) of 32.0 to 32.9 in adult Prediabetes Heart murmur Abnormal CT scan, chest Renal lesion Multiple sclerosis Hypertension Respiratory failure with hypercapnia COPD (chronic obstructive pulmonary disease) Nicotine dependence, cigarettes, uncomplicated Acid reflux Osteopenia Vertigo Colon cancer screening Surgical History History of tonsillectomy and adenoidectomy Family History Mother No problems noted. Father Bladder cancer Social History Household Members: Spouse Housing: Apartment Do you presently have visiting nurse or other home services: No Alcohol intake: never Patient Tobacco Use Status: Current everyday Tobacco user Tobacco use type: Cigarette Cigarettes Per Day: 15 Years Smoked: (onset 18yo, 3/4-1ppd x 46yrs, 40pyh) Second Hand Smoke Exposure: No service: No Current occupational status: employed Cognitive needs: No Hearing needs: No Vision needs: Yes (glasses cheaters) Questionnaire PHQ-9 Over the last 2 weeks, how often have you been bothered by any of the following problems? 1. Little interest or pleasure in doing things: not at all 2. Feeling down, depressed, or hopeless: not at all 3. Trouble falling or staying asleep, or sleeping too much: not at all 4. Feeling tired or having little energy: not at all 5. Poor appetite or overeating: not at all 6. Feeling bad about yourself - or that you are a failure or have let yourself or your family down: not at all 7. Trouble concentrating on things, such as reading the newspaper or watching television: not at all 8. Moving or speaking so slowly that other people could have noticed. Or the opposite - being so fidgety or restless that you have been moving around a lot more than usual: not at all 9. Thoughts that you would be better off or of hurting yourself in some way: not at all Total score: 0 Depression Screening Interpretation: Negative Depression Screening Done: Yes 75791 - PHQ-9 Billing: Yes Source: Developed by Drs. Adrian Herzog, Cora Yi, David Shrestha and colleagues, with an educational juan from [employer]. Thrive Questionnaire Date Thrive assessed: 08/13/25 I am a: Patient What is your living situation today?: I have a steady place to live Within the past 12 months, did the food you bought not last and you didn't have the money to get more?: Never true Within the past 12 months, did you worry whether your food would run out before you got money to buy more?: Never true Do you have trouble paying for medicines?: No Do you have trouble getting transportation to medical appointments?: No Do you have trouble paying your heating and electricity bill?: No Do you have trouble taking care of your child, family member or friend?: No Do you have trouble with day-to-day activities such as bathing, preparing meals, shopping, managing finances, etc.?: No Are you currently unemployed and looking for a job?: No Are you interested in more education?: No Please select the resources that you would like help with: None THRIVE Score: 0 AUDIT C Alcohol Use Questionnaire (AUDIT-C) 1. How often do you have a drink containing alcohol?: Never Total Score: 0 Score Reviewed/Action Taken: No CRISELDA-7 AMB Questionnaire CRISELDA-7 Date CRISELDA - 7 assessed: 08/13/25 Feeling nervous, anxious, or on edge: 0 = Not at all Not being able to stop or control worryin = Not at all Worrying too much about different things: 0 = Not at all Trouble relaxin = Not at all Being so restless that it is hard to sit still: 0 = Not at all Becoming easily annoyed or irritable: 0 = Not at all Feeling afraid as if something awful might happen: 0 = Not at all Total CRISELDA-7 score (0-4 normal; 5-9 mild; 10-14 moderate; 15-21 severe): 0 Source: Developed by Drs. Adrain Herzog, Cora Yi, David Shrestha and colleagues, with an educational juan from [employer]. CRISELDA-7 Assessment Billing CRISELDA-7 Assessment Tool: CRISELDA-7 Assessment 29465 Review of Systems Const Details: - Cardiovascular: Denies chest pain or shortness of breath with activity. - Respiratory: Reports no wheezing, but has a history of COPD. - Musculoskeletal: Denies leg swelling or calf tenderness. All systems reviewed & are unremarkable except as noted in HPI and below Physical exam (Primary Care) Vital Signs: Last Vital Signs Temp 98.2 F 08/13/25 13:27 Pulse 90 08/13/25 13:27 BP 179/85 H 08/13/25 13:27 Pulse Ox 96 08/13/25 13:27 Oxygen Delivery Method Room Air 08/13/25 13:27 Care Plan Goal for BP management: <140/90 patient to continue metoprolol extended release 100 mg daily will add lisinopril 10 mg and patient will return for blood pressure check BMI result Body Mass Index 32.0 BMI Assessment/Plan discussion: High BMI High, discussed plan: lifestyle, weight reduction, dietary, physical activity, alcohol moderation and other Tobacco/Smoking Status: Tobacco use Status Tobacco use date assessed 08/13/25 08/13/25 13:26 Patient Tobacco Use Status Current everyday Tobacco 08/13/25 13:24 Tobacco use type Cigarette 08/13/25 13:24 PHQ-9: PHQ-9 Score PHQ-9: Total score 0 08/13/25 13:57 Depression Screening Interpretation: Negative Thrive Assessment: Date of Thrive Assessment Date Thrive assessed 08/13/25 08/13/25 13:26 Const Other: Appearance: Alert. Oriented X3. No acute distress. Head: Normal external exam. Normocephalic. Atraumatic. Eyes: Pupils are equal, round, and reactive to light. Extraocular movements intact. Conjunctiva and sclera normal. Eyelids normal. Ears: External auditory canal normal. Tympanic membranes normal. Throat: Pharynx normal. Uvula midline. Moist mucous membranes. Neck: Normal inspection. Neck supple. Full range of motion. No adenopathy. Thyroid Normal. No meningeal signs. No neck mass noted. Cardiovascular: Heart murmur present. Normal heart rate and rhythm. Pulses normal throughout. Respiratory: No respiratory distress. Painless inspiration. Breath sounds normal. No wheezes/rales/rhonchi noted. Chest nontender. No accessory muscle usage noted or decreased air movement noted. Abdomen: Soft and nontender. Bowel sounds normal in all 4 quadrants. No distention noted. No organomegaly noted. No visible injury noted. Back: No costovertebral angle tenderness. Full range of motion noted. Skin: Skin warm and dry. Normal skin color. Normal skin turgor. No rashes/lesions/lacerations noted. Extremities: No lower extremity edema. Extremities exhibit normal range of motion. Extremities nontender. Neuro: Oriented X 3. No motor deficit. No sensory deficit. Reflexes normal. Office Procedures Flu Questionnaire Does the patient have a severe egg allergy?: No Does the patient have severe life threatening allergies?: No Does the patient have a fever or illness today?: No Has the patient ever had Guillain-Lavalette Syndrome?: No Has the patient ever had any past reaction to a flu shot?: No Results AMB Hemoglobin A1c AMB Hemoglobin A1c 5.9 % Last Edit by Ingris Pereyra CMA on 08/13/25 13:58 Immunizations Fluarix [id number] (PF) 45 mcg (15 mcg x 3)/0.5 mL IM syringe Performing Provider: Jannie Ames PA-C [facility] Administered by: Ingris Pereyra CMA on 08/13/25 13:40 Dose Route Admin Location Dispensed Lot Number Expiration Date [facility] Power Technician 0.5 mL IM Left Deltoid 0.5 mL [id number] 04/21/26 [id number] [employer] VIS Given Date VIS Provided VIS Publication Date 08/13/25 Single Vaccine 24 Eligibility Eligibility Date Funding Source Not [facility] Eligible 08/13/25 Private Results Reviewed Results Reviewed: Laboratory Last Values Hgb A1c (Clinic) 5.9 % (4.0-6.0) 08/13/25 13:55 - Labs: A1c 5.9%, indicating prediabetes. - Imaging: CT scan revealed a 1.8 x 0.9 cm hyperdense lesion at the upper pole of the right kidney. Coding Level of Care Code New Pt Level 4 (89002) Complex EM visit Add On G2211 Diagnoses Prediabetes R73.03 Hypertension I10 Renal lesion N28.9 COPD (chronic obstructive pulmonary disease) J44.9 Class 1 obesity with body mass index (BMI) of 32.0 to 32.9 in adult E66.9; Z68.32 Additional Codes CRISELDA-7 Assessment Billing - CRISELDA-7 Assessment Tool: CRISELDA-7 Assessment 89403 ([id number]) PHQ-9 - 32504 - PHQ-9 Billing: Yes ([id number]) Time Spent (min) 65 Assessment & Plan Assessment & Plan (1) Prediabetes: Code(s): R73.03 - Prediabetes Category: Medical Plan: The patient has been identified as prediabetic with an A1c of 5.9%. She has been advised to monitor her sugar intake, particularly from pasta and bread, which she consumes regularly. (2) Hypertension: Code(s): I10 - Essential (primary) hypertension Category: Medical Plan: The patient has a history of hypertension, which has been noted to be elevated since March, with readings above the desired level of 140/90 mmHg. She is currently on metoprolol extended release 100 mg for blood pressure management, but it has not been adequately controlling her hypertension. A new medication, lisinopril 10 mg, has been prescribed to better manage her blood pressure. (3) Renal lesion: Code(s): N28.9 - Disorder of kidney and ureter, unspecified Category: Medical Plan: A hyperdense lesion measuring 1.8 x 0.9 cm was found at the upper pole of the right kidney during a CT scan for lung nodules. The patient is concerned about this finding and has requested further evaluation with a renal ultrasound. (4) COPD (chronic obstructive pulmonary disease): Comment: IT SEEMS THAT SHE DOES HAVE MODERATELY ADVANCED CHRONIC OBSTRUCTIVE PULMONARY DISEASE ALREADY. HISTORY OF FREQUENT ACUTE EXACERBATIONS, CURRENTLY CONTROLLED AND STABLE WITH THE USE OF TRELEGY ELLIPTA ONCE A DAY. .PRESCRIPTION RENEWED Code(s): J44.9 - Chronic obstructive pulmonary disease, unspecified Category: Medical Plan: The patient has a history of smoking and has been diagnosed with Chronic Obstructive Pulmonary Disease (COPD). She has experienced weight gain of approximately 20 pounds over the last six months, which she attributes to the use of Trelegy, a medication containing steroids. (5) Class 1 obesity with body mass index (BMI) of 32.0 to 32.9 in adult: Code(s): E66.9 - Obesity, unspecified; Z68.32 - Body mass index [BMI] 32.0-32.9, adult Category: Medical Plan: The patient has experienced weight gain of approximately 20 pounds over the last six months, which she attributes to the use of Trelegy, a medication containing steroids. Patient will improve diet and exercise. Plan Plan Patient was informed and verbally consented to the use of an ambient scribe for clinic note documentation during this visit. 1. Prediabetes The patient has been identified as prediabetic with an A1c of 5.9%. She has been advised to monitor her sugar intake, particularly from pasta and bread, which she consumes regularly. 2. Hypertension The patient has a history of hypertension, which has been noted to be elevated since March, with readings above the desired level of 140/90 mmHg. She is currently on metoprolol extended release 100 mg for blood pressure management, but it has not been adequately controlling her hypertension. A new medication, lisinopril 10 mg, has been prescribed to better manage her blood pressure. 3. Hyperdense Renal Lesion A hyperdense lesion measuring 1.8 x 0.9 cm was found at the upper pole of the right kidney during a CT scan for lung nodules. The patient is concerned about this finding and has requested further evaluation with a renal ultrasound. 4. Chronic Obstructive Pulmonary Disease (Copd) The patient has a history of smoking and has been diagnosed with Chronic Obstructive Pulmonary Disease (COPD). She has experienced weight gain of approximately 20 pounds over the last six months, which she attributes to the use of Trelegy, a medication containing steroids. 5. Obesity The patient has experienced weight gain of approximately 20 pounds over the last six months, which she attributes to the use of Trelegy, a medication containing steroids. During the visit, we discussed the patient's prediabetes and the importance of monitoring sugar intake, particularly from pasta and bread. We also addressed her hypertension, noting that her current medication, metoprolol, was not adequately controlling her blood pressure, and thus, lisinopril was prescribed. The hyperdense renal lesion found on her CT scan was discussed, and a renal ultrasound was recommended for further evaluation. The patient's COPD and associated weight gain were reviewed, with a focus on the impact of Trelegy. We also noted the detection of a heart murmur and the need for further cardiac evaluation. Orders: Orders Influenza [id number] Immunization Today Z23 - Encounter for immunization US renal BI Today N28.9 - Disorder of kidney and ureter, unspecified, R93.89 - Abnormal findings on diagnostic imaging of other specified body structures Erythrocyte Sedimentation Rate Today Z00.00 - Encounter for general adult medical examination without abnormal findings AMB Hemoglobin A1c Today Z13.9 - Encounter for screening, unspecified CA echo transthoracic complete Today R01.1 - Cardiac murmur, unspecified ECG 12 lead EKG Today R01.1 - Cardiac murmur, unspecified UA CC w/rflx Micro + Cult Today Z00.00 - Encounter for general adult medical examination without abnormal findings TSH reflex Free T4 Today Z00.00 - Encounter for general adult medical examination without abnormal findings Lipid Panel Today Z00.00 - Encounter for general adult medical examination without abnormal findings Magnesium Today Z00.00 - Encounter for general adult medical examination without abnormal findings Vitamin B12 and Folate Today Z00.00 - Encounter for general adult medical examination without abnormal findings Vitamin D 25-OH Total Today Z00.00 - Encounter for general adult medical examination without abnormal findings Comprehensive [place]. Panel Fast Today Z00.00 - Encounter for general adult medical examination without abnormal findings Complete Blood Count Auto Diff Today Z00.00 - Encounter for general adult medical examination without abnormal findings C Reactive Protein Today Z00.00 - Encounter for general adult medical examination without abnormal findings XR DEXA axial skeleton Today M81.0 - Age-related osteoporosis without current pathological fracture MM screening mammo BI Today Z12.31 - Encounter for screening mammogram for malignant neoplasm of breast Referrals Urology Referral N28.9 - Disorder of kidney and ureter, unspecified Medications: New lisinopril 10 mg PO DAILY 30 tabs 0RF Patient Instructions: - Monitor blood pressure daily and record readings. - Take lisinopril 10 mg as prescribed and continue metoprolol. - Schedule and complete renal ultrasound and follow up with results. - Reduce sugar intake, focusing on limiting pasta and bread. - Attend scheduled colonoscopy, endoscopy, mammogram, and bone scan appointments.
[2025-08-13 13:27] VITALS: BP 179/85; PULSE 90; TEMP 36.8; O2SAT 96; BMI 32.0
[2025-08-13 16:30] VITALS: BP 152/72
== END 2025-08-13 14:12 | disposition home or self-care (01) ==
LOC: HO.HMCSH 13:23
PROVIDERS: Visit Provider Physician Assistant Medical
DX: R73.03 Prediabetes (principal); I10 Essential (primary) hypertension; N28.9 Disorder of kidney and ureter, unspecified; J44.9 Chronic obstructive pulmonary disease, unspecified; E66.9 Obesity, unspecified; Z68.32 Body mass index [BMI] 32.0-32.9, adult; Z23 Encounter for immunization; Z13.9 Encounter for screening, unspecified

== ENCOUNTER → 2025-08-13 13:23 | Outpatient (BNVA) | payer OTHER, SELFPAY | PROVIDERS: Visit Provider Physician Assistant Medical | DX: I10 Essential (primary) hypertension (principal); N28.9 Disorder of kidney and ureter, unspecified; R73.03 Prediabetes; J44.9 Chronic obstructive pulmonary disease, unspecified; R01.1 Cardiac murmur, unspecified; E66.9 Obesity, unspecified; M81.0 Age-related osteoporosis without current pathological fracture; F17.210 Nicotine dependence, cigarettes, uncomplicated; Z23 Encounter for immunization; Z68.32 Body mass index [BMI] 32.0-32.9, adult; Z79.899 Other long term (current) drug therapy | CPT/HCPCS: 83036; 90471; 90656; 96127; 99202 ==

== ENCOUNTER 2025-08-15 07:52 | Day surgery (SDC) | payer OTHER, SELFPAY ==
--- NOTE | 2025-08-13 11:23 | HO.ANESPROP2 ---
Documented by User: Sydney Barrera NP 08/13/25 11:27 HPI - Anesthesia Eval Consult details Narrative: 64 yr old female for Upper Endoscopy and Colonoscopy COPD: [facility] admission for COPD exacerbation, acute hypoxic respiratory failure 03/2025; saw [facility] pulmo 05/2025 for HFU, advised to quit smoking, start on Trelegy, PFTs ordered PMFSH Active Problems Active Problems: All Active Problems Nicotine dependence, cigarettes, uncomplicated (Acute) Osteopenia (Acute) Acid reflux (Acute) Colon cancer screening (Acute) COPD (chronic obstructive pulmonary disease) (Acute) Respiratory failure with hypercapnia (Acute) Pneumonia (Acute) Past Medical History Medical History (Updated 08/15/25 @ 08:15 by Rekha Jo RN) Multiple sclerosis Class 1 obesity with body mass index (BMI) of 32.0 to 32.9 in adult Prediabetes Heart murmur Abnormal CT scan, chest Renal lesion Multiple sclerosis Hypertension Respiratory failure with hypercapnia COPD (chronic obstructive pulmonary disease) Nicotine dependence, cigarettes, uncomplicated Acid reflux Osteopenia Vertigo Colon cancer screening Family History Family History Mother No problems noted. Father Bladder cancer Surgical History Surgical History History of tonsillectomy and adenoidectomy Social History Social History Household Members: Spouse Housing: Apartment Do you presently have visiting nurse or other home services: No Alcohol intake: never Patient Tobacco Use Status: Current everyday Tobacco user Tobacco use type: Cigarette Cigarettes Per Day: 20 Years Smoked: (onset 18yo, 3/4-1ppd x 46yrs, 40pyh) Second Hand Smoke Exposure: No Use of substances other than those prescribed or required for medical reasons: No Are you DNR?: No Advance Directives: No Advance Directives Information Provided: Yes Patient : No : No service: No Current occupational status: employed Cognitive needs: No Hearing needs: No Vision needs: Yes (glasses cheaters) Meds Allergies Allergy/AdvReac Type Severity Reaction Status Date / Time No Known Allergies Allergy Verified 08/13/25 13:43 Home Medications ?Medication ?Instructions ?Recorded ?Confirmed ?Last Taken ?Type metoprolol succinate 100 mg 100 mg PO DAILY 04/13/25 08/13/25 Unknown History tablet,extended release 24 hr Documented by User: Shantel Rucker MD 08/15/25 09:30 [facility] Past Medical History Medical History (Updated 08/15/25 @ 08:15 by Rekha Jo RN) Multiple sclerosis Class 1 obesity with body mass index (BMI) of 32.0 to 32.9 in adult Prediabetes Heart murmur Abnormal CT scan, chest Renal lesion Multiple sclerosis Hypertension Respiratory failure with hypercapnia COPD (chronic obstructive pulmonary disease) Nicotine dependence, cigarettes, uncomplicated Acid reflux Osteopenia Vertigo Colon cancer screening Family History Family History Mother No problems noted. Father Bladder cancer Family history of problems with anesthesia: No Surgical History Surgical History History of tonsillectomy and adenoidectomy History of Problems with Anesthesia: No Social History Social History Household Members: Spouse Housing: Apartment Do you presently have visiting nurse or other home services: No Alcohol intake: never Patient Tobacco Use Status: Current everyday Tobacco user Tobacco use type: Cigarette Cigarettes Per Day: 20 Years Smoked: (onset 18yo, 3/4-1ppd x 46yrs, 40pyh) Second Hand Smoke Exposure: No Use of substances other than those prescribed or required for medical reasons: No Are you DNR?: No Advance Directives: No Advance Directives Information Provided: Yes Patient : No : No service: No Current occupational status: employed Cognitive needs: No Hearing needs: No Vision needs: Yes (glasses cheaters) Meds Allergies Allergy/AdvReac Type Severity Reaction Status Date / Time No Known Allergies Allergy Verified 08/13/25 13:43 Home Medications ?Medication ?Instructions ?Recorded ?Confirmed ?Last Taken ?Type metoprolol succinate 100 mg 100 mg PO DAILY 04/13/25 08/13/25 Unknown History tablet,extended release 24 hr Exam Airway Mallampati Class: II TM Dist: >3cm Neck ROM: Full Partial: Upper Heart: rrr Lungs: cta Assessment and Plan Assessment Anesthesia Assessment: Anesthesia Plan Discussed and Chart Reviewed Final Anesthetic Review Family History of Problems with Anesthesia: No History of Problems with Anesthesia: No NPO: Yes ASA Class: III Final Preanesthetic Review: No Changes in Pt Med Stat, Meds/Allgs Chart Reviewed and Consent Obtained/Reviewed Patient Risk: Intermediate Procedure Risk: Intermediate Anesthetic Plan Anesthetic Plan: MAC: Disposition: Standard PACU
[2025-08-13 12:22] VITALS: BMI 30.9
[2025-08-15 08:19] VITALS: BMI 31.3
--- NOTE | 2025-08-15 08:28 | MHC.SHP ---
Pre-Procedural Eval Section A - 24 Hr Update-Section A only Date of Service: 08/15/25 The patient is an INPATIENT: No The patient has been examined within 24 hours of the surgical procedure. The History & Physical has been completed within 30 days and I have reviewed it.: No Section B - Complete if H&P > 30 days Chief Complaint: Colon cancer screening, GERD Relevant Family History (Specify if Yes): No Relevant Social History: Tobacco Use (Former smoker) Present Medications: see Short Stay Collaborative assessment Medical History: Significant History (COPD (chronic obstructive pulmonary disease) Respiratory failure with hypercapnia Smoker Vertigo Hypertension Multiple sclerosis) History of Previous Operations: Relevant previous surgery/procedure and date(s) (History of tonsillectomy and adenoidectomy) Allergies: Allergies Allergy/AdvReac Type Severity Reaction Status Date / Time No Known Allergies Allergy Verified 08/13/25 13:43 Review of Systems Sugical H&P ROS: Negative: Constitution, Cardiovascular, Respiratory and Gastrointestinal Exam Surgical H&P Exam: Normal: Heart, Normal: Lungs, Normal: Extremities and Normal: Abdomen Plan Diagnosis/Plan: Unchanged I have reviewed the history and physical and performed a pertinent physical examination on my patient. No changes have occurred unless specified. Time Spent With Patient Time: Total time managing care of this patient today ____ minutes.
[2025-08-15 08:34] VITALS: BP 147/80; PULSE 120; RESP 16; TEMP 36.1; O2SAT 98
[2025-08-15] MEDS: Lactated Ringers 1,000 ML 100 ML IVCONT (08:43)
[2025-08-15 09:34] VITALS: PULSE 102
--- NOTE | 2025-08-15 09:50 | P.OPN-COLO_ITS ---
Colonoscopy Operative Note Operative Note Date of Service: 08/15/25 Narrative: FLEXIBLE TRANSORAL UPPER GASTROINTESTINAL ENDOSCOPY WITH BIOPSIES AND COLONOSCOPY TILL CECUM WITH [] Pre-op diagnosis: Colon cancer screening, GERD Post-op diagnosis: GERD, Hiatal hernia, Gastritis, Colon Polyps, Diverticulosis, hemorrhoids Endoscopist:? Richard Orta MD Anesthesia:?MAC UPPER ENDOSCOPY Consent: Indications for the procedure and potential complications of bleeding, perforation, reaction to medications and missed diagnosis were discussed with the patient and informed consent was obtained. Instrument: Olympus GIF H 190 mid size upper endoscope Monitoring: Vital signs and clinical assessment, continuous EKG monitoring, Pulse oximetry, Carbon Dioxide monitoring and blood pressure monitoring were done throughout the procedure. Procedure: The patient was placed in the left lateral decubitis position and pre-procedure medications were administered and a bite block was placed. The endoscope was inserted into the mouth and advanced under direct vision to the third part of duodenum. A careful inspection was made as the upper endoscope was withdrawn including a retroflexed examination of the proximal stomach; Findings and interventions are described below. Findings: Larynx: Normal Esophagus: GE junction at 34 cms, small hiatal hernia 34 to 36 cms. Minimal focal esophagitis at GE junction and no Cervantes's. Stomach: Moderate diffuse gastric erythema with nodular apparing mucosa in the gastric body - biopsies were obtained from the gastric body and antrum. Grade 3 flap valve on retroflexed examination of the cardia. Duodenum: Normal bulb and descending duodenum Intervention: Biopsies as noted above COLONOSCOPY PROCEDURE NOTE Instrument: Olympus PCF H 190 L variable stiffness pediatric colonoscope Monitoring: Vital signs and clinical assessment, intermittent blood pressure monitoring, continuous EKG monitoring, Pulse oximetry and Carbon Dioxide monitoring were done throughout the procedure. Please see anesthesia flowsheet. Colon withdrawl time was 35 minutes. Procedure: The patient was placed in the left lateral decubitis position and pre-procedure medications were administered. After a digital rectal examination of the ano-rectum, the video colonoscope was inserted into the rectum and advanced through the colon to the cecum. The colonoscope was slowly withdrawn in a retrograde panoramic fashion and the colon mucosa was carefully examined including a retroflexed view of the rectum. Findings and interventions are described below. Procedure Difficulty: Colon was long and tortuous and there was some loop formation. LLQ pressure was applied to intubate the cecum Findings: Terminal Ileum: Not evaluated Cecum: A 3 cms x 2 cms flat polyp - raised with 5 cc of Eleview and removed with a large stiff snare. Polypectomy site was closed with 4 hemoclips and marked with an Lisandra ink. Polyp was retrieved with a Pete net. Two 10-15 mm sessile polyps - not removed due to excessive length of the procedure. Ascending Colon: Normal Transverse Colon: Normal Descending Colon: Moderate diverticulosis Sigmoid Colon: Moderate diverticulosis Rectum: Normal Ano-rectum: Moderate internal hemorrhoids Colon preparation: Excellent, after some irrigation. [place] Bowel Preparation Scale Right colon; 3 Transverse colon: 3 Left colon; 3 (0 = Unprepared colon segment with mucosa not seen due to solid stool that cannot be cleared. 1 = Portion of mucosa of the colon segment seen, but other areas of the colon segment not well seen due to staining, residual stool and/or opaque liquid. 2 = Minor amount of residual staining, small fragments of stool and/or opaque liquid, but mucosa of colon segment seen well. 3 = Entire mucosa of colon segment seen well with no residual staining, small fragments of stool or opaque liquid) Impression and Post Procedure Diagnosis: Endoscopy Findings: ESOPHAGUS: [] STOMACH: [] DUODENUM: [] Colonoscopy Findings: A 3 cms x 2 cms flat polyp - raised with 5 cc of Eleview and removed with a large stiff snare. Polypectomy site was closed with 4 hemoclips and marked with an Lisandra ink. Polyp was retrieved with a Pete net. Two 10-15 mm sessile polyps - not removed due to excessive length of the procedure. Moderate diverticulosis seen in the left colon Moderate hemorrhoids on retroflexed exam. Plan: Pt has a FU appointment on [ ] with [Itzel Marcus NP], [CAROLINA Pelletier], [Serina Cabrera], [Dr Orta] Repeat Colonoscopy in 6 months if polyp is adenomatous and for removal of remaining ascending colon polyps. A summary of above findings and relevant handouts were given to the patient.
[2025-08-15 10:35] VITALS: BP 112/63; PULSE 89; RESP 16; TEMP 36.1; O2SAT 94
[2025-08-15 10:50] VITALS: BP 111/52; PULSE 90; RESP 16; TEMP 36.1; O2SAT 95
== END 2025-08-15 11:21 ==
PROVIDERS: PCP Internal Medicine; Visit Provider Internal Medicine Gastroenterology
PROC: (CPT 45385; principal; 2025-08-15 09:20)
DX: Z12.11 Encounter for screening for malignant neoplasm of colon (principal); K21.9 Gastro-esophageal reflux disease without esophagitis; K44.9 Diaphragmatic hernia without obstruction or gangrene; K29.70 Gastritis, unspecified, without bleeding; D12.0 Benign neoplasm of cecum
CPT/HCPCS: 45385; 45381; 43239; 88305; 88342; J2003; J2371; J2704

== ENCOUNTER 2025-08-22 09:09 | Outpatient (REF) | payer OTHER, SELFPAY ==
[2025-08-22 10:20] LABS: MANUAL DIFF FLAG NO
[2025-08-22 10:42] LABS: Hematocrit 43.2 % (37.0-47.0); Hemoglobin 14.6 g/dl (12.0-16.0); Imm Gran Abs Auto 0.01 X10*3/uL (0.00-0.03); Imm Gran Pct Auto 0.1 % (0.0-0.4); Lymphocytes Absolute Auto 3.6 X10*3/uL (1.2-4.9); Mean Corpuscular HGB Conc 33.8 g/dl (31.0-35.0); Mean Corpuscular Hemoglobin 31.5 pg (27.0-33.0); Mean Corpuscular Volume 93.3 fL (80.0-98.0); NRBC Abs Auto 0.000 X10*3/uL (0.0-0.012); NRBC Pct Auto 0.0 /100WBC (0.0-0.2); Platelet Count 257 X10*3/uL (160-400); Red Blood Count 4.63 X10*6/uL (4.20-5.50); White Blood Count 6.7 X10*3/uL (4.8-10.8)
[2025-08-22 10:44] LABS: Appearance Urine Clear; Glucose Urine UA Negative (Negative); PH 5.5 (5.0-9.0); Specific Gravity - Urine 1.015 (1.005-1.025); UMIC TRIGGER UACC YES
[2025-08-22 10:58] LABS: UACC Culture Trigger YES
[2025-08-22 11:39] LABS: Alanine Aminotransferase 14 U/L (0-31); Albumin Level 4.1 g/dL (3.5-5.0); Alkaline Phosphatase 52 U/L (39-117); Anion Gap 11 (12-20); Aspartate Amino Transferase 22 U/L (5-31); Blood Urea Nitrogen 10 mg/dL (9-16); Calcium 9.1 mg/dL (8.4-10.2); Carbon Dioxide 24 mmol/L (22-29); Chloride 109 mmol/L (96-108); Cholesterol 250 mg/dL (<200); Estimated Glomerular Filt Rate > 60; HDL Cholesterol 33 mg/dL (>40); Magnesium 1.9 mg/dL (1.6-2.6); Potassium 3.7 mmol/L (3.3-5.1); Sodium 140 mmol/L (135-145); Total Protein 7.0 g/dL (6.5-8.0); Triglycerides 206 mg/dL (<150)
[2025-08-22 11:55] LABS: Folate 11.3 ng/mL (> or = 4.0); Vitamin B12 269 pg/mL (200-900)
== END 2025-08-22 09:10 | disposition home or self-care (01) ==
LOC: HO.HMGCLDS 09:09
PROVIDERS: PCP Physician Assistant Medical; Visit Provider Physician Assistant Medical
DX: Z00.00 Encounter for general adult medical examination without abnormal findings (principal)
CPT/HCPCS: 36415; 80053; 80061; 81001; 82306; 82607; 82746; 83735; 84443; 85025; 85652; 86140; 87086

== ENCOUNTER 2025-08-29 10:25 | Outpatient (AMB) | payer OTHER, SELFPAY ==
--- NOTE | 2025-08-29 10:33 | A.OFFVIS_ITS ---
Vital Signs 08/29/25 10:34 Height 5 ft 5 in Weight 188 lb BMI 31.3 BP 142/84 H Blood Pressure Location Rt brachial Position Sitting Pulse 78 Pulse Source Pulse Oximeter Pulse Oximetry (%) 99 Oxygen Delivery Method Room Air Intake Visit Reasons: s/p egd/colon Intake Note: Patient follow up for EGD/Colonoscopy results. Patient cc: Pt denies any new GI sx or concerns at this time. Forensic Science Technician Required: No Accompanied by: Self / Same As Patient Allergies No Known Allergies Allergy (Verified 08/13/25 13:43) HPI HPI s/p egd/colon: Details: Patient is a 64-year-old female with PMH of nicotine dependence, COPD, hypertension and MS. FU after EGD and colonoscopy performed for GERD/reflux and CRC screening. Pt presents s/p EGD and colonoscopy (08-15-25); continuing to experience mild, episodic reflux sx (~3?4 episodes/mo), managed with prn Tums. No significant change in reflux pattern, reports some attention to lifestyle triggers. Denies dysphagia, odynophagia, melena, hematochezia, or change in bowel habits. No hospitalizations, flares, or urgent care visits since last appt. No evidence of overt GI bleeding or new GI complaints. [facility] Medical History (Updated 08/29/25 @ 12:53 by Kaitlin Willams CNP) Diverticulosis Hemorrhoids GERD without esophagitis Colon polyp Low serum HDL Hypercholesteremia Hypertriglyceridemia Hyperlipidemia LDL goal <100 Multiple sclerosis Class 1 obesity with body mass index (BMI) of 32.0 to 32.9 in adult Prediabetes Heart murmur Abnormal CT scan, chest Renal lesion Multiple sclerosis Hypertension Respiratory failure with hypercapnia COPD (chronic obstructive pulmonary disease) Nicotine dependence, cigarettes, uncomplicated Acid reflux Osteopenia Vertigo Colon cancer screening Surgical History History of esophagogastroduodenoscopy (EGD) Hx of colonoscopy History of tonsillectomy and adenoidectomy Family History Mother No problems noted. Father Bladder cancer Social History Household Members: Spouse Housing: Apartment Do you presently have visiting nurse or other home services: No Alcohol intake: never Patient Tobacco Use Status: Current everyday Tobacco user Tobacco use type: Cigarette Cigarettes Per Day: 20 Years Smoked: (onset 18yo, 3/4-1ppd x 46yrs, 40pyh) Second Hand Smoke Exposure: No service: No Current occupational status: employed Cognitive needs: No Hearing needs: No Vision needs: Yes (glasses cheaters) Review of Systems Const Reports as per HPI ENT Reports as per HPI Card Reports as per HPI Resp Reports as per HPI GI Reports as per HPI Reports as per HPI Physical Exam Vital Signs: Last Vital Signs Pulse 78 08/29/25 10:34 BP 142/84 H 08/29/25 10:34 Pulse Ox 99 08/29/25 10:34 Oxygen Delivery Method Room Air 08/29/25 10:34 BMI result Body Mass Index 31.3 Const General: healthy appearing, no acute distress and well developed Nutritional Appearance: average body habitus Orientation/consciousness: patient oriented x3 HEENT Head: Yes normal to inspection, Yes normocephalic and Yes atraumatic Face and sinus: Yes normal facial exam Eyes General: appearance normal, both eyes and all related structures Neck Neck: Yes normal visual inspection Resp Effort & Inspection: normal respiratory effort, able to speak in complete sentences, no tracheal deviation and symmetric chest movement Cardio Jugular venous distension: no JVD GI Inspection: Yes normal to inspection and No distended Palpation (GI): Soft to palpation, not firm, nontender and No hepatosplenomegaly present Neuro General: patient oriented x3 Gait exam (Neuro): Normal gait present Psych Appearance: grossly normal Mental Status: mental status grossly normal Speech and movement: Normal speech and movement present Affect: normal affect Attitude: cooperative Thought process: Normal thought process present Thought content: Normal thought content present Insight: Good insight present (Psych) Judgement: Good judgement present (Psych) Results Reviewed Results Reviewed: Narrative: FLEXIBLE TRANSORAL UPPER GASTROINTESTINAL ENDOSCOPY WITH BIOPSIES AND COLONOSCOPY TILL CECUM WITH [] Pre-op diagnosis: Colon cancer screening, GERD Post-op diagnosis: GERD, Hiatal hernia, Gastritis, Colon Polyps, Diverticulosis, hemorrhoids Endoscopist: Richard Orta MD Anesthesia: MAC UPPER ENDOSCOPY Consent: Indications for the procedure and potential complications of bleeding, perforation, reaction to medications and missed diagnosis were discussed with the patient and informed consent was obtained. Instrument: Olympus GIF H 190 mid size upper endoscope Monitoring: Vital signs and clinical assessment, continuous EKG monitoring, Pulse oximetry, Carbon Dioxide monitoring and blood pressure monitoring were done throughout the procedure. Procedure: The patient was placed in the left lateral decubitis position and pre-procedure medications were administered and a bite block was placed. The endoscope was inserted into the mouth and advanced under direct vision to the third part of duodenum. A careful inspection was made as the upper endoscope was withdrawn including a retroflexed examination of the proximal stomach; Findings and interventions are described below. Findings: Larynx: Normal Esophagus: GE junction at 34 cms, small hiatal hernia 34 to 36 cms. Minimal focal esophagitis at GE junction and no Cervantes's. Stomach: Moderate diffuse gastric erythema with nodular apparing mucosa in the gastric body - biopsies were obtained from the gastric body and antrum. Grade 3 flap valve on retroflexed examination of the cardia. Duodenum: Normal bulb and descending duodenum Intervention: Biopsies as noted above COLONOSCOPY PROCEDURE NOTE Instrument: Olympus PCF H 190 L variable stiffness pediatric colonoscope Monitoring: Vital signs and clinical assessment, intermittent blood pressure monitoring, continuous EKG monitoring, Pulse oximetry and Carbon Dioxide monitoring were done throughout the procedure. Please see anesthesia flowsheet. Colon withdrawl time was 35 minutes. Procedure: The patient was placed in the left lateral decubitis position and pre-procedure medications were administered. After a digital rectal examination of the ano-rectum, the video colonoscope was inserted into the rectum and advanced through the colon to the cecum. The colonoscope was slowly withdrawn in a retrograde panoramic fashion and the colon mucosa was carefully examined including a retroflexed view of the rectum. Findings and interventions are described below. Procedure Difficulty: Colon was long and tortuous and there was some loop formation. LLQ pressure was applied to intubate the cecum Findings: Terminal Ileum: Not evaluated Cecum: A 3 cms x 2 cms flat polyp - raised with 5 cc of Eleview and removed with a large stiff snare. Polypectomy site was closed with 4 hemoclips and marked with an Lisandra ink. Polyp was retrieved with a Pete net. Two 10-15 mm sessile polyps - not removed due to excessive length of the procedure. Ascending Colon: Normal Transverse Colon: Normal Descending Colon: Moderate diverticulosis Sigmoid Colon: Moderate diverticulosis Rectum: Normal Ano-rectum: Moderate internal hemorrhoids Colon preparation: Excellent, after some irrigation. [place] Bowel Preparation Scale Right colon; 3 Transverse colon: 3 Left colon; 3 (0 = Unprepared colon segment with mucosa not seen due to solid stool that cannot be cleared. 1 = Portion of mucosa of the colon segment seen, but other areas of the colon segment not well seen due to staining, residual stool and/or opaque liquid. 2 = Minor amount of residual staining, small fragments of stool and/or opaque liquid, but mucosa of colon segment seen well. 3 = Entire mucosa of colon segment seen well with no residual staining, small fragments of stool or opaque liquid) Impression and Post Procedure Diagnosis: Endoscopy Findings: ESOPHAGUS: [] STOMACH: [] DUODENUM: [] Colonoscopy Findings: A 3 cms x 2 cms flat polyp - raised with 5 cc of Eleview and removed with a large stiff snare. Polypectomy site was closed with 4 hemoclips and marked with an Lisandra ink. Polyp was retrieved with a Pete net. Two 10-15 mm sessile polyps - not removed due to excessive length of the procedure. Moderate diverticulosis seen in the left colon Moderate hemorrhoids on retroflexed exam. Plan: Pt has a FU appointment on [ ] with [Itzel Marcus NP], [CAROLINA Pelletier], [Serina Cabrera], [Dr Orta] Repeat Colonoscopy in 6 months if polyp is adenomatous and for removal of jacqui ining ascending colon polyps. A summary of above findings and relevant handouts were given to the patient. PATHOLOGY: Collected: 08/15/25 Location: [facility] Received: 08/15/25 Diagnosis A. Gastric antrum, biopsy: Gastric antral mucosa with focal minimal chronic inactive inflammation; negative for H.pylori, intestinal metaplasia and dysplasia. B. Gastric body, biopsy: Gastric body mucosa with focal minimal chronic inactive inflammation; negative for H.pylori, intestinal metaplasia and dysplasia. C. Colon, cecal polyp: Sessile serrated lesion/polyp without dysplasia. Clinical History Pre-Op Dx: Colon cancer screening, GERD Post-Op Dx: Gastritis, GERD, hiatal hernia, colon polyp, diverticulosis, hemorrhoid Assessment & Plan Assessment & Plan (1) Colon polyp: Comment: 08/15/25 colonoscopy complete with excellent prep-3cm X 2cm Sessile serrated polyp without dysplasia (cecum), moderate diverticulosis (descending, sigmoid) moderate internal hemorrhoids. Recommendations for repeat in 6 months to remove remaining cecum polyps. Code(s): K63.5 - Polyp of colon Category: Medical Qualifiers: Colon polyp type: unspecified Colon location: unspecified part of colon Qualified Code(s): K63.5 - Polyp of colon Plan: Incomplete resection of larger cecal polyp; one small benign polyp already removed. Repeat colonoscopy needed for therapeutic polypectomy due to incomplete removal. Additional Testing: Repeat colonoscopy to be scheduled in 6 mo (target: January 2026). Medications: Colonoscopy prep to be Rx-d at time of scheduling. Lifestyle Recommendations: Continue prep as instructed for repeat procedure. Referrals / Coordination of Care: Scheduling order placed; pt to coordinate w/ care team coordinator scheduler. Follow-Up Plan: FU after repeat colonoscopy; call office if not contacted to schedule by Oct 2025. (2) GERD without esophagitis: Comment: 08/15/25 EGD- Gastritis, GERD, hiatal hernia Code(s): K21.9 - Gastro-esophageal reflux disease without esophagitis Category: Medical Plan: Stable; pt has mild, episodic reflux managed with lifestyle and prn Tums. Sx frequency unchanged. Denies red-flag features. Rationale for Management Changes: Considering ongoing mild sx and EGD-proven gastritis/hiatal hernia, short-term acid suppression discussed. Pt prefers conservative mgmt; no new Rx initiated. Additional Testing: None at this time. Medications: Continue prn Tums for breakthrough sx. Lifestyle Recommendations: - Reinforce low trigger diet (limit caffeine, spicy/acids, carbonation, ETOH). Continue limiting coffee to 2 cups/day. - Maintain upright posture post-prandially, avoid large/fatty meals, weight loss as able to reduce intra-abd pressure, dylan. w/ hiatal hernia and reinforced smoking cessation - Educational counseling provided re: GERD/hiatal hernia/lifestyle. Referrals / Coordination of Care: None. Follow-Up Plan: Assess sx at next appt after repeat colonoscopy or sooner if increased frequency/severity. (3) Hemorrhoids: Code(s): K64.9 - Unspecified hemorrhoids Category: Medical Qualifiers: Hemorrhoid type: unspecified Qualified Code(s): K64.9 - Unspecified hemorrhoids Plan: No current sx of bleeding or pain. Conservative mgmt indicated. Additional Testing: None. Medications: None. Lifestyle Recommendations: Maintain soft stool, regular BM to avoid hemorrhoidal irritation. Referrals / Coordination of Care: None. Follow-Up Plan: PRN for new or worsening sx. (4) Diverticulosis: Code(s): K57.90 - Diverticulosis of intestine, part unspecified, without perforation or abscess without bleeding Category: Medical Plan: Incidental on colonoscopy; asymptomatic. Prevention focused. Additional Testing: None. Medications: None. Lifestyle Recommendations: Emphasize high-fiber, balanced diet; maintain hydration; avoid constipation. Referrals / Coordination of Care: None. Follow-Up Plan: As above; monitor for sx suggestive of diverticulitis. Plan Follow-up after colonoscopy or sooner as needed Time: I spent a total of 20 minutes on the date of encounter which includes: Preparing to see the patient (reviewed previous documentation, test results and medical history) Performing a medically appropriate exam and/or evaluation Ordering medications, tests, and procedures Documenting clinical information in the health record Orders: Referrals GI Procedure Notification K63.5 - Polyp of colon Coding Level of Care Code Established Pt Est Pt Level 3 (04761) Patient Type Established Diagnoses Polyp of colon, unspecified part of colon, unspecified type K63.5 Colon polyp type: unspecified Colon location: unspecified part of colon GERD without esophagitis K21.9 Hemorrhoids, unspecified hemorrhoid type K64.9 Hemorrhoid type: unspecified Diverticulosis K57.90
[2025-08-29 10:34] VITALS: BP 142/84; PULSE 78; O2SAT 99; BMI 31.3
== END 2025-08-29 11:15 | disposition home or self-care (01) ==
LOC: HO.HGI 10:26
PROVIDERS: Visit Provider Nurse Practitioner Family
DX: K63.5 Polyp of colon (principal); K21.9 Gastro-esophageal reflux disease without esophagitis; K64.9 Unspecified hemorrhoids; K57.90 Diverticulosis of intestine, part unspecified, without perforation or abscess without bleeding
CPT/HCPCS: 99213

== ENCOUNTER → 2025-08-29 10:25 | Outpatient (BNVA) | payer OTHER, SELFPAY | PROVIDERS: Visit Provider Nurse Practitioner Family | DX: K63.5 Polyp of colon (principal); K21.9 Gastro-esophageal reflux disease without esophagitis; K64.9 Unspecified hemorrhoids; K57.90 Diverticulosis of intestine, part unspecified, without perforation or abscess without bleeding | CPT/HCPCS: 99212 ==

== ENCOUNTER 2025-09-06 09:42 | Outpatient (REF) | payer OTHER, SELFPAY ==
--- NOTE | ~2025-09-06 | US_ITS ---
CLINICAL HISTORY: N28.9 - Disorder of kidney and ureter, unspecified --- Additional Notes or Special Instructions: 1.8 x 0.9 cm hyperdense lesion at the upper pole of the right US of kidneys Comparison: None provided Findings: Right kidney is normal in size, echogenicity and morphology, 11.4 cm in length. Simple cyst 1.1 cm in the upper pole. No calculus or hydronephrosis. Left kidney is normal in size, echogenicity and morphology, 10.2 cm in length. No calculus, mass or hydronephrosis. Limited color Doppler demonstrates unremarkable bilateral blood flow. Impression: Right renal benign cyst. This document has been electronically signed by: Claudia Moser MD on 09/07/2025 17:02:08
== END 2025-09-06 09:43 | disposition home or self-care (01) ==
LOC: HO.US 09:42
PROVIDERS: PCP Physician Assistant Medical; Visit Provider Physician Assistant Medical
DX: N28.9 Disorder of kidney and ureter, unspecified (principal); R93.89 Abnormal findings on diagnostic imaging of other specified body structures
CPT/HCPCS: 76775

== ENCOUNTER → 2025-09-06 09:44 | Outpatient (BNV) | payer OTHER, SELFPAY | PROVIDERS: PCP Physician Assistant Medical; Visit Provider Radiology Diagnostic Radiology | DX: N28.9 Disorder of kidney and ureter, unspecified (principal) | CPT/HCPCS: 76775 ==

== ENCOUNTER → 2025-09-10 08:43 | Outpatient (REF) | payer OTHER, SELFPAY ==
--- NOTE | 2025-09-10 08:46 | CA_ITS ---
Transthoracic Echocardiogram Patient (Last, First, Middle): Mary Anderson E Gender: Female Date of : 1960 Age: 64 Procedure Date: 09/10/2025 Procedure Type: Transthoracic Echocardiogram Location: OP Height: 165.1 cm Weight: 85.28 kg BSA: 1.93 m2 Heart Rate: bpm BP: 142 / 84 mmHg Casting Molder: [id number] Referring MD: Jannie Ames PA-C Symptoms: R01.1 - Cardiac murmur, unspecified Study Quality: Adequate ECG Rhythm: Sinus Conclusions: - The left ventricular systolic function is normal. The calculated ejection fraction is 68% by biplane method. - No obvious valvular pathology seen on this study. Findings Left Ventricle Normal left ventricular cavity size. There is normal left ventricular wall thickness. The left ventricular systolic function is normal. The calculated ejection fraction is 68% by biplane method. There is no evidence of regional wall motion abnormalities. Diastolic function is normal for age. Right Ventricle Normal right ventricular cavity size and systolic function. Atria Both atria are normal in size. Aortic Valve There is a normal trileaflet aortic valve. There is no aortic valve stenosis. There is no aortic valve regurgitation. Mitral Valve The mitral valve appears normal. There is no mitral valve regurgitation. There is no mitral valve stenosis. Pulmonic Valve The pulmonic valve is likely normal. Tricuspid Valve There is no tricuspid valve regurgitation. Tricuspid regurgitation envelope is inadequate for calculation of right ventricular systolic pressure. Great Vessels The asc aorta is normal in size. Venous The inferior vena cava is normal in size and collapses greater than 50% with inspiration. Pericardium/Pleural There is no evidence of pericardial effusion. Prior Study Comparison No prior study available for comparison. Recommendations, Care & Conclusions No obvious valvular pathology seen on this study. Measurements 2D Linear Measurements IVSd: 1.22 0.6-0.9/0.6-1.0 cm LVIDd: 4.15 3.9-5.3/4.2-5.9 cm LVIDd Index: 2.15 2.4-3.2/2.2-3.1 cm/m2 LVIDs: 2.99 2.0-3.6 cm LVPWd: 0.78 0.7-1.1 cm LA Diam: 3.60 2.7-3.8/3.0-4.0 cm LAIDs Index: 1.87 1.5-2.3 cm/m2 LV Mass: 167.70 67-162/88-224 g LV Mass Index: 86.89 43-95/49-115 g/m2 LVOT Diam: 2.00 3.0+(-)1.3 cm 2D Systolic Function EF 4C: 67.90 >55% EF 2C: 68.50 >55% EF BiP: 68.00 >55% Mitral Valve MV Pk E: 1.01 MV PK A: 1.03 MV Decel Time: 228.00 E/A: 1.00 E'Lateral: 10.90 E'Medial: 8.27 E/E' Med: 12.20 E/E' Lat: 9.30 PHT: 67.00 MVA PHT: 3.28 Decel [place]: 4.41 Aortic Valve AoV Pk Brian: 1.98 AoV Mn Brian: 1.29 AoV VTI: 0.44 AoV Pk Grad: 16.00 Aov Mn Grad: 8.00 TYE Cont.VTI: 1.88 LVOT LVOT Pk Brian: 1.23 LVOT Mn Brian: 0.75 LVOT VTI: 0.27 LVOT Pk Grad: 6.00 LVOT Mn Grad: 3.00 LVOT Diam: 2.00 LVOT Area: 3.14 Diastolic Function MV Pk E: 1.01 MV Pk A: 1.03 E/A: 1.00 E'Medial: 8.27 E/E' Med: 12.20 E' Laterial: 10.90 E/E' Lat: 9.30 Right Ventricle TAPSE (mm): 26.10 TVS' Brian: 12.50 Tricuspid Valve RA Press: 3.00 Great Vessels Aorta Sinus of Valsalva: 2.97 2.0-3.[address] [place]: 2.57 1.7-3.4 cm Ao Asc: 3.20 2.1-3.4 cm Pulmonary Veins Pulm Vein S/D 1.00 Updated in Other Vendor System with Status of Final Chris Plunkett MD electronically signed on 09/11/2025 10:30:39 AM with status of Final
--- NOTE | 2025-09-10 08:46 | ECG_ITS ---
Test Reason : CP Blood Pressure : */* mmHG Vent. Rate : 78 BPM Atrial Rate : 78 BPM P-R Int : 132 ms QRS Dur : 84 ms QT Int : 352 ms P-R-T Axes : 64 52 27 degrees QTcB Int : 401 ms Normal sinus rhythm Possible Left atrial enlargement Nonspecific ST abnormality Abnormal ECG When compared with ECG of 12-Apr-2025 21:29, Nonspecific T wave abnormality now evident in Inferior leads Referred By: Jannie Ames Electronically Signed By: AREN SINGER
== END ==
LOC: HO.CARD 08:43
PROVIDERS: PCP Physician Assistant Medical; Visit Provider Physician Assistant Medical
DX: R94.31 Abnormal electrocardiogram [ECG] [EKG] (principal); R01.1 Cardiac murmur, unspecified; J44.9 Chronic obstructive pulmonary disease, unspecified; F17.210 Nicotine dependence, cigarettes, uncomplicated; Z79.899 Other long term (current) drug therapy
CPT/HCPCS: 93005; 93306; 99212

== ENCOUNTER → 2025-09-10 08:46 | Outpatient (BNV) | payer OTHER, SELFPAY | PROVIDERS: PCP Physician Assistant Medical; Visit Provider Internal Medicine | DX: R94.31 Abnormal electrocardiogram [ECG] [EKG] (principal); R07.9 Chest pain, unspecified | CPT/HCPCS: 93010 ==

== ENCOUNTER 2025-09-10 10:00 | Outpatient (AMB) | payer OTHER, SELFPAY ==
[2025-09-10 10:23] VITALS: BP 160/74; PULSE 83; O2SAT 99; BMI 31.9
--- NOTE | 2025-09-10 10:23 | A.OFFVIS_ITS ---
Vital Signs 09/10/25 10:23 Height 5 ft 5 in Weight 191 lb 12.835 oz BMI 31.9 BP 160/74 H Blood Pressure Location Lt brachial Position Sitting Pulse 83 Pulse Source Pulse Oximeter Pulse Oximetry (%) 99 Oxygen Delivery Method Room Air Intake Visit Reasons: COPD/ s/p PFT Intake Note: pt is here for follow up of pft , down to 12 cigarettes a day. she states she is pretty good today, f/u from pft Hand Silvering Supervisor Required: No Manager Compliance: Manager Compliance offered & declined Allergies No Known Allergies Allergy (Verified 09/10/25 10:42) Medication List - Last Reconciled 09/10/25 by Maria Del Carmen Kaur MD albuterol sulfate 2.5 mg (3 mL) inhalation Q4H PRN cholecalciferol (vitamin D3) 50 mcg PO DAILY lisinopril 10 mg PO DAILY metoprolol succinate ER 100 mg PO DAILY rosuvastatin (Crestor) 10 mg PO DAILY Do you need a note to return to daycare/school/sports/work: No HPI HPI COPD/ s/p PFT: Details: THIS 64 YEARS OLD FEMALE IS HERE FOR FOLLOW-UP AFTER SHE HAD PULMONARY FUNCTION TEST. SHE IS BEING FOLLOWED FOR COPD. SHE IS A [employer] SMOKER HAS BEEN SMOKING UP TO 2 PACKS A DAY, AND NOW SHE IS TRYING TO QUIT BUT HAS REDUCED TO ABOUT 12 CIGARETTES A DAY. SHE WAS OFFERED NICOTINE PATCH BUT SHE WANTS TO DO IT ON HER OWN. SHE HAD BEEN ON TRELEGY ELLIPTA FOR A WHILE BUT NOW FOR THE PAST 6 WEEKS SHE HAS NOT USED THIS INHALER. SHE SAY IS THAT SHE STARTED PUTTING ON WEIGHT AND THOUGHT IT WAS DUE TO TRELEGY ( WHICH HAS CORTISONE IN THE) SHE HAS NOT NOTICED ANY DIFFERENCE AFTER STOPPING TRELEGY ELLIPTA. HE DOES HAVE ALBUTEROL HFA ON HAND AND ALSO ALBUTEROL SOLUTION FOR THE NEBULIZER BUT HARDLY NEEDS TO USE IT. HE HAS MILD INTERMITTENT COUGH AND ONLY MILD DYSPNEA ON MODERATELY HEAVY EXERTION. SHE IS STILL WORKING AT [employer] AND STAX THE STUFF ON THE SHELVES , WITHOUT MUCH SHORTNESS OF BREATH. SHE IS ALSO TAKING CARE OF HER GRANDCHILDREN AND 1 4 YEARS OLD LIVES WITH HER. [facility] Medical History Diverticulosis Hemorrhoids GERD without esophagitis Colon polyp Low serum HDL Hypercholesteremia Hypertriglyceridemia Hyperlipidemia LDL goal <100 Multiple sclerosis Class 1 obesity with body mass index (BMI) of 32.0 to 32.9 in adult Prediabetes Heart murmur Abnormal CT scan, chest Renal lesion Multiple sclerosis Hypertension Respiratory failure with hypercapnia COPD (chronic obstructive pulmonary disease) Nicotine dependence, cigarettes, uncomplicated Acid reflux Osteopenia Vertigo Colon cancer screening Surgical History History of esophagogastroduodenoscopy (EGD) Hx of colonoscopy History of tonsillectomy and adenoidectomy Family History Mother No problems noted. Father Bladder cancer Social History Household Members: Spouse Housing: Apartment Do you presently have visiting nurse or other home services: No Alcohol intake: never Patient Tobacco Use Status: Current everyday Tobacco user Tobacco use type: Cigarette Cigarettes Per Day: 12 Years Smoked: (onset 18yo, 3/4-1ppd x 46yrs, 40pyh) Second Hand Smoke Exposure: No service: No Current occupational status: employed Cognitive needs: No Hearing needs: No Vision needs: Yes (glasses cheaters) Review of Systems Const All systems reviewed & are unremarkable except as noted in HPI and below Reports as per HPI Eyes Reports no additional complaints ENT Reports as per HPI Card Reports as per HPI Resp Reports as per HPI GI Reports as per HPI Reports as per HPI Musc Reports no additional complaints Skin/Breast Reports other (HAS SKIN TAGS ON HER FACE AND ARMS SINCE ) Neuro Reports no additional complaints Psych Reports no additional complaints Endo Reports no additional complaints Nolberto/Lymph Reports no additional complaints Physical Exam Vital Signs: Last Vital Signs Pulse 83 09/10/25 10:23 BP 160/74 H 09/10/25 10:23 Pulse Ox 99 09/10/25 10:23 Oxygen Delivery Method Room Air 09/10/25 10:23 BMI result Body Mass Index 31.9 Const General: healthy appearing, comfortable, no acute distress, alert and awake Orientation/consciousness: patient oriented x3 HEENT Head: Yes normal to inspection General nose exam: No nasal polyps present and No nasal discharge present Face and sinus: Yes sinuses nontender Mouth: oropharynx normal Throat: Yes posterior oropharynx normal Eyes General: appearance normal, both eyes and all related structures Neck Neck: Yes normal visual inspection, Yes no lymphadenopathy, Yes trachea midline and Yes no JVD Thyroid: Thyroid normal Chest Chest palpation & inspection: normal inspection of the chest, normal palpation of entire chest wall and no tenderness Resp Other: CHEST IS SYMMETRICAL. PERCUSSION NOTE RESONANT. BREATH SOUNDS ARE SLIGHTLY DISTANT WITH PROLONGED EXPIRATORY PHASE. NO WHEEZES OR RHONCHI ARE HEARD. Cardio Palpation: normal PMI Rate: regular rate Rhythm: regular rhythm Heart sounds: no gallops and no murmurs Peripheral pulses: Peripheral pulses 2+ throughout GI Palpation (GI): Soft to palpation, nontender, No hepatosplenomegaly present and no masses Auscultation: normal bowel sounds Back/Spine/Pelvis Thoracic/Lumbar Spine: thoracic and lumbar spine normal to inspection Skin General skin exam: no rashes or lesions noted Lesions: lesion noted (MULTIPLE VERRUCAE ON THE FACE, MORE ON THE RIGHT SIDE) Neuro General: patient oriented x3 and no focal motor deficits Cranial nerves: Yes CN's II-XII intact bilaterally Extrem General: Yes normal to inspection, Yes no clubbing, cyanosis or edema and Yes no calf tenderness Psych Appearance: grossly normal and well kempt Speech and movement: Normal speech and movement present Results Reviewed Results Reviewed: PULMONARY FUNCTION TEST, SHOWS ONLY MILD OBSTRUCTIVE AIRWAY DISORDER, WITHOUT ANY SIGNIFICANT RESPONSE TO BRONCHODILATOR CHALLENGE. LDCT 07/25/25 LUNG-RADS ASSESSMENT: Lung-RADS 2: Benign MANAGEMENT: Continue annual screening with LDCT in 12 months Assessment & Plan Assessment & Plan (1) COPD (chronic obstructive pulmonary disease): Comment: IT SEEMS THAT SHE DOES HAVE MODERATELY ADVANCED CHRONIC OBSTRUCTIVE PULMONARY DISEASE ALREADY. HISTORY OF FREQUENT ACUTE EXACERBATIONS, FROM HER LAST VISIT THERE HAS BEEN NO ACUTE EXACERBATIONS. SHE QUIT USING TRELEGY ELLIPTA 6 WEEKS AGO AND THERE HAS BEEN NO INCREASE IN HER SYMPTOMS. Code(s): J44.9 - Chronic obstructive pulmonary disease, unspecified Category: Medical Plan: ADVISED TO JUST USE ALBUTEROL HFA 2 PUFFS Q 4-6 HOURS P.R.N. OR USE ALBUTEROL SOLUTION IN THE NEBULIZER Q 4-6 HOURS P.R.N. IF ANY INCREASE IN COUGH OR WHEEZING. NO NEED TO USE ANY MAINTENANCE TREATMENT AT THIS TIME. (2) Nicotine dependence, cigarettes, uncomplicated: Comment: (onset 18yo, 3/4-1ppd x 46yrs, 40pyh), today she states that she has cut down the cigarettes to 12 per day and continues to cut down the number of cigarettes slowl Code(s): F17.210 - Nicotine dependence, cigarettes, uncomplicated Category: Medical Plan: Commended for cutting down the amount of smoking , but ultimate goal is to quit completely. Continue to have annual lung screening. With LD CT Coding Level of Care Code Est Pt Level 3 (78826) Diagnoses COPD (chronic obstructive pulmonary disease) J44.9 Nicotine dependence, cigarettes, uncomplicated F17.210
== END 2025-09-10 10:50 | disposition home or self-care (01) ==
LOC: HO.HPS 10:00
PROVIDERS: PCP Internal Medicine; Visit Provider Internal Medicine
DX: J44.9 Chronic obstructive pulmonary disease, unspecified (principal); F17.210 Nicotine dependence, cigarettes, uncomplicated
CPT/HCPCS: 99213

== ENCOUNTER 2025-09-24 09:05 | Outpatient (AMB) | payer OTHER, SELFPAY ==
--- NOTE | 2025-09-24 09:07 | MHC.OFFVIS ---
Intake Visit Reasons: hyperdense lesion of kidney/UA(set) Intake Note: Reason for Visit: New Patient- Hyperdense lesion of kidney/Family Hx of Bladder Cancer Urology Meds: None Antibiotic Allergy: None Blood Thinners: None Imaging: Renal US 09/07/2025 Family History Bladder Cancer? Yes - Father Kidney Cancer? No Has not seen any other urologist. Surface Supply Breathing Apparatus Required: No Accompanied by: Self / Same As Patient Allergies No Known Allergies Allergy (Verified 09/24/25 09:17) HPI Comments Details: Mary is a pleasant female. She is a patient of . She is seen for the following urologic conditions - microscopic hematuria Given microscopic hematuria findings recommend office cystoscopy Microscopic Hematuria Initial UA 2+ 80 Prior smoking history - 1/2-1 pack per day for last 45 years Prior Family history of bladder cancer father No workplace exposures Imaging - renal ultrasound benign right 1 cm cyst PFSH Medical History Diverticulosis Hemorrhoids GERD without esophagitis Colon polyp Low serum HDL Hypercholesteremia Hypertriglyceridemia Hyperlipidemia LDL goal <100 Multiple sclerosis Class 1 obesity with body mass index (BMI) of 32.0 to 32.9 in adult Prediabetes Heart murmur Abnormal CT scan, chest Renal lesion Multiple sclerosis Hypertension Respiratory failure with hypercapnia COPD (chronic obstructive pulmonary disease) Nicotine dependence, cigarettes, uncomplicated Acid reflux Osteopenia Vertigo Colon cancer screening Surgical History History of esophagogastroduodenoscopy (EGD) Hx of colonoscopy History of tonsillectomy and adenoidectomy Family History Mother No problems noted. Father Bladder cancer Social History Household Members: Spouse Housing: Apartment Do you presently have visiting nurse or other home services: No Alcohol intake: never Patient Tobacco Use Status: Current everyday Tobacco user Tobacco use type: Cigarette Cigarettes Per Day: 12 Years Smoked: (onset 18yo, 3/4-1ppd x 46yrs, 40pyh) Second Hand Smoke Exposure: No service: No Current occupational status: employed Cognitive needs: No Hearing needs: No Vision needs: Yes (glasses cheaters) Review of Systems Const Denies chills and Denies fever(s) Card Reports no additional complaints and Denies syncope Resp Denies cough GI Denies abdominal pain and Denies heartburn Reports as per HPI and Denies change in libido Neuro Denies syncope Psych Denies change in libido Endo Denies change in libido Physical Exam Const General: cooperative, healthy appearing, comfortable and no acute distress Orientation/consciousness: patient oriented x3 HEENT Face and sinus: Yes normal facial exam Mouth: moist mucous membranes Neck Neck: Yes normal visual inspection, Yes full ROM and Yes trachea midline Chest Chest palpation & inspection: normal inspection of the chest Resp Effort & Inspection: normal respiratory effort, able to speak in complete sentences and no respiratory distress GI Inspection: Yes normal to inspection Back/Spine/Pelvis Cervical Spine: normal cervical lordosis Thoracic/Lumbar Spine: thoracic and lumbar spine normal to inspection Skin General skin exam: no rashes or lesions noted Neuro General: patient oriented x3, gait normal, tone normal and moves all extremities Extrem General: Yes normal to inspection and Yes capillary refill normal Results AMB Urinalysis, Automated UA Leukoctes 0 Humaira/uL Last Edit by LYNN Ku on 09/24/25 09:24 UA Nitrite Negative Last Edit by LYNN Ku on 09/24/25 09:24 UA Urobilinogen 0.2 mg/dL Last Edit by LYNN Ku on 09/24/25 09:24 UA Protein 15 mg/dL Last Edit by LYNN Ku on 09/24/25 09:24 UA pH 6.0 Last Edit by LYNN Ku on 09/24/25 09:24 UA Blood 80 Jerry/uL Last Edit by LYNN Ku on 09/24/25 09:24 UA Specific Bronson 1.015 Last Edit by LYNN Ku on 09/24/25 09:24 UA Ketone Negative Last Edit by LYNN Ku on 09/24/25 09:24 UA Bilirubin 0 mg/dL Last Edit by LYNN Ku on 09/24/25 09:24 UA Glucose 0 mg/dL Last Edit by LYNN Ku on 09/24/25 09:24 Results Reviewed Results Reviewed: Laboratory Last Values Urine pH (Auto) 6.0 09/24/25 09:20 Specific Bronson (Auto) 1.015 09/24/25 09:20 Urine Protein (Auto) 15 mg/dL 09/24/25 09:20 Glucose (UA)(Auto) 0 mg/dL 09/24/25 09:20 Urine Ketones (Auto) Negative 09/24/25 09:20 Urine Blood (Auto) 80 Jerry/uL 09/24/25 09:20 Urine Nitrite (Auto) Negative 09/24/25 09:20 Urine Bilirubin (Auto) 0 mg/dL 09/24/25 09:20 Urine Urobilinogen (Auto) 0.2 mg/dL 09/24/25 09:20 Leukocyte Esterase (Auto) 0 Humaira/uL 09/24/25 09:20 Assessment & Plan Assessment & Plan (1) Microscopic hematuria: Code(s): R31.29 - Other microscopic hematuria Category: Medical Plan Office cystoscopy Orders: Orders Urine Cytology Today Z80.52 - Family history of malignant neoplasm of bladder AMB Urinalysis Automated Today Z13.9 - Encounter for screening, unspecified Patient Instructions: This note is constructed using voice recognition software. While every effort has been made to ensure accuracy chief power dispatcher errors may have been included. Imaging studies, laboratory and physical exam results were discussed and reviewed in detail. No major barriers to patient understanding were identified. An opportunity to ask questions regarding the treatment plan was provided. All questions were answered. The patient expressed understanding and agreement with the above treatment plan. The patient is aware they should contact our office by phone for worsening of their current condition or the appearance of new urologic symptoms. Compliance is encouraged with any medications and followup testing that is ordered. It is a privilege to participate in the urologic care of your patient. If you have any questions or concerns regarding treatment for the above conditions, or other urologic issues, please do not hesitate to contact me. The office telephone contact is [phone]. Sincerely, Dr Vinny Aguila MD, [facility] - Urology Compassionate Specialist Care for the Genitourinary System Coding Level of Care Code New Pt Level 3 (77290) Diagnoses Microscopic hematuria R31.29
== END 2025-09-24 09:40 | disposition home or self-care (01) ==
LOC: HO.HUSH 09:06
PROVIDERS: PCP Physician Assistant Medical; Visit Provider Urology
DX: R31.29 Other microscopic hematuria (principal); Z13.9 Encounter for screening, unspecified
CPT/HCPCS: 99203

== ENCOUNTER 2025-09-24 09:05 | Outpatient (REF) | payer OTHER, SELFPAY | END 2025-09-24 09:06 | disposition home or self-care (01) | LOC: HO.LAB 09:05 | PROVIDERS: PCP Physician Assistant Medical; Visit Provider Urology | DX: R31.29 Other microscopic hematuria (principal); Z80.52 Family history of malignant neoplasm of bladder | CPT/HCPCS: 81003; 88112; 99202 ==

== ENCOUNTER 2025-09-25 13:17 | Outpatient (AMB) | payer OTHER, SELFPAY ==
[2025-09-25 13:25] VITALS: BP 138/72; PULSE 90; RESP 14; TEMP 36.4; O2SAT 98; BMI 31.8
--- NOTE | 2025-09-25 13:25 | MHC.PC.OV ---
Vital Signs 09/25/25 13:25 Height 5 ft 5 in Weight 191 lb BMI 31.8 BP 138/72 Blood Pressure Location Rt brachial Position Sitting Respiration 14 Pulse 90 Pulse Source Pulse Oximeter Temp 97.5 F Temp Source Temporal Artery Scan Pulse Oximetry (%) 98 Oxygen Delivery Method Room Air Intake Visit Reasons: 1 Month follow up Verification Rep Required: No Accompanied by: Self / Same As Patient Allergies No Known Allergies Allergy (Verified 09/25/25 14:11) Medication List - Last Reconciled 09/25/25 by Jannie Ames PA-C albuterol sulfate 2.5 mg (3 mL) inhalation Q4H PRN cholecalciferol (vitamin D3) 50 mcg PO DAILY lisinopril 10 mg PO DAILY metoprolol succinate ER 100 mg PO DAILY rosuvastatin (Crestor) 10 mg PO DAILY Tobacco use date assessed: 08/13/25 Dental Screening Dental Screen Date: 08/13/25 HPI HPI Comments History of Present Illness Details History of Present Illness The patient is a 64 year old female presenting for a follow-up visit for hypertension. Her blood pressure has improved and is now well-controlled, with a previous reading of 160/74 mmHg. She is currently taking metoprolol extended-release 100 mg and lisinopril 10 mg. The patient was recently started on rosuvastatin for high cholesterol. A previously noted heart murmur was evaluated with an echocardiogram, which was normal. She reports a history of colon polyps and is scheduled for a repeat colonoscopy in six months because not all polyps were removed during her last procedure. A recent ultrasound revealed a kidney cyst, but a urologist determined it requires no intervention. However, she has persistent hematuria, for which the urologist will perform a cystoscopy at the end of October, noting that this can sometimes occur after menopause. For health maintenance, the patient is scheduled for a mammogram and a bone density scan at the end of the year. She states she does not really use her prescribed inhaler. [facility] Medical History (Updated 09/25/25 @ 14:20 by Jannie Ames PA-C) Healthcare maintenance Diverticulosis Hemorrhoids GERD without esophagitis Colon polyp Low serum HDL Hypercholesteremia Hypertriglyceridemia Hyperlipidemia LDL goal <100 Multiple sclerosis Class 1 obesity with body mass index (BMI) of 32.0 to 32.9 in adult Prediabetes Heart murmur Abnormal CT scan, chest Renal lesion Multiple sclerosis Hypertension Respiratory failure with hypercapnia COPD (chronic obstructive pulmonary disease) Nicotine dependence, cigarettes, uncomplicated Acid reflux Osteopenia Vertigo Colon cancer screening Surgical History History of esophagogastroduodenoscopy (EGD) Hx of colonoscopy History of tonsillectomy and adenoidectomy Family History Mother No problems noted. Father Bladder cancer Social History Household Members: Spouse Housing: Apartment Do you presently have visiting nurse or other home services: No Alcohol intake: never Patient Tobacco Use Status: Current everyday Tobacco user Tobacco use type: Cigarette Cigarettes Per Day: 12 Years Smoked: (onset 18yo, 3/4-1ppd x 46yrs, 40pyh) Second Hand Smoke Exposure: No service: No Current occupational status: employed Cognitive needs: No Hearing needs: No Vision needs: Yes (glasses cheaters) Questionnaire PHQ-9 Over the last 2 weeks, how often have you been bothered by any of the following problems? 1. Little interest or pleasure in doing things: not at all 2. Feeling down, depressed, or hopeless: not at all 3. Trouble falling or staying asleep, or sleeping too much: not at all 4. Feeling tired or having little energy: not at all 5. Poor appetite or overeating: not at all 6. Feeling bad about yourself - or that you are a failure or have let yourself or your family down: not at all 7. Trouble concentrating on things, such as reading the newspaper or watching television: not at all 8. Moving or speaking so slowly that other people could have noticed. Or the opposite - being so fidgety or restless that you have been moving around a lot more than usual: not at all 9. Thoughts that you would be better off or of hurting yourself in some way: not at all Total score: 0 Depression Screening Interpretation: Negative Depression Screening Done: Yes 87218 - PHQ-9 Billing: Yes Source: Developed by Drs. Adrian Herzog, Cora Yi, David Shrestha and colleagues, with an educational juan from [employer]. Thrive Questionnaire Date Thrive assessed: 08/13/25 I am a: Patient What is your living situation today?: I have a steady place to live Within the past 12 months, did the food you bought not last and you didn't have the money to get more?: Never true Within the past 12 months, did you worry whether your food would run out before you got money to buy more?: Never true Do you have trouble paying for medicines?: No Do you have trouble getting transportation to medical appointments?: No Do you have trouble paying your heating and electricity bill?: No Do you have trouble taking care of your child, family member or friend?: No Do you have trouble with day-to-day activities such as bathing, preparing meals, shopping, managing finances, etc.?: No Are you currently unemployed and looking for a job?: No Are you interested in more education?: No Please select the resources that you would like help with: None THRIVE Score: 0 AUDIT C Alcohol Use Questionnaire (AUDIT-C) 1. How often do you have a drink containing alcohol?: Never 3. How often do you have six or more drinks on one occasion?: Never Total Score: 0 Score Reviewed/Action Taken: No CRISELDA-7 AMB Questionnaire CRISELDA-7 Date CRISELDA - 7 assessed: 08/13/25 Feeling nervous, anxious, or on edge: 0 = Not at all Not being able to stop or control worryin = Not at all Worrying too much about different things: 0 = Not at all Trouble relaxin = Not at all Being so restless that it is hard to sit still: 0 = Not at all Becoming easily annoyed or irritable: 0 = Not at all Feeling afraid as if something awful might happen: 0 = Not at all Total CRISELDA-7 score (0-4 normal; 5-9 mild; 10-14 moderate; 15-21 severe): 0 Source: Developed by Drs. Adrian Herzog, Cora Yi, David Shrestha and colleagues, with an educational juan from [employer]. CRISELDA-7 Assessment Billing CRISELDA-7 Assessment Tool: CRISELDA-7 Assessment 63032 Review of Systems Narrative Review of Systems - Genitourinary: Reports hematuria. - Respiratory: Denies significant use of her prescribed inhaler. Const All systems reviewed & are unremarkable except as noted in HPI and below Physical exam (Primary Care) Vital Signs: Last Vital Signs Temp 97.5 F 09/25/25 13:25 Pulse 90 09/25/25 13:25 Resp 14 09/25/25 13:25 BP 138/72 09/25/25 13:25 Pulse Ox 98 09/25/25 13:25 Oxygen Delivery Method Room Air 09/25/25 13:25 Care Plan Goal for BP management: <140/90 at Goal BMI result Body Mass Index 31.8 BMI Assessment/Plan discussion: High BMI High, discussed plan: lifestyle, weight reduction, dietary, physical activity, alcohol moderation and other Tobacco/Smoking Status: Tobacco use Status Tobacco use date assessed 08/13/25 09/25/25 13:27 Patient Tobacco Use Status Current everyday Tobacco 09/25/25 13:27 Tobacco use type Cigarette 09/25/25 13:27 PHQ-9: PHQ-9 Score PHQ-9: Total score 0 09/25/25 13:27 Depression Screening Interpretation: Negative Thrive Assessment: Date of Thrive Assessment Date Thrive assessed 08/13/25 09/25/25 13:27 Narrative Physical Exam Appearance: Alert. Oriented X3. No acute distress. Head: Normal external exam. Normocephalic. Atraumatic. Eyes: Pupils are equal, round, and reactive to light. Extraocular movements intact. Conjunctiva and sclera normal. Eyelids normal. Throat: Pharynx normal. Uvula midline. Moist mucous membranes. Neck: Normal inspection. Neck supple. Full range of motion. Cardiovascular: Normal heart rate and rhythm. Heart sound normal. No murmurs noted. Pulses normal throughout. Respiratory: No respiratory distress. Painless inspiration. Breath sounds normal. No wheezes/rales/rhonchi noted. Chest nontender. No accessory muscle usage noted or decreased air movement noted. Back: Full range of motion noted. Skin: Skin warm and dry. Normal skin color. Normal skin turgor. No rashes/lesions/lacerations noted. Extremities: Extremities exhibit normal range of motion. Neuro: Oriented X 3. No motor deficit. No sensory deficit. Reflexes normal. Results Reviewed Results Reviewed: - Echocardiogram: Normal, with no abnormalities noted despite a previously heard murmur. - Kidney Ultrasound: Revealed a small cyst. - Urinalysis: Positive for hematuria. - Colonoscopy: Showed polyps that were not completely removed. Coding Level of Care Code Est Pt Level 4 (20059) Complex visit Add On G2211 Diagnoses Hypertension I10 Hypercholesteremia E78.00 Hypertriglyceridemia E78.1 Hyperlipidemia LDL goal <100 E78.5 Microscopic hematuria R31.29 Polyp of colon, unspecified part of colon, unspecified type K63.5 Colon polyp type: unspecified Colon location: unspecified part of colon Healthcare maintenance Z00.00 Additional Codes CRISELDA-7 Assessment Billing - CRISELDA-7 Assessment Tool: CRISELDA-7 Assessment 17327 ([id number]) PHQ-9 - 71803 - PHQ-9 Billing: Yes ([id number]) Time Spent (min) 60 Assessment & Plan Assessment & Plan (1) Hypertension: Code(s): I10 - Essential (primary) hypertension Category: Medical Plan: The patient's blood pressure is well-controlled on metoprolol 100 mg ER and lisinopril 10 mg. A 90-day supply of metoprolol with 3 refills will be sent to the pharmacy. She was advised to continue monitoring her blood pressure at home and to call if it consistently exceeds 140/90 mmHg, with the option to take an additional dose of lisinopril if needed. A follow-up visit is scheduled in 6 months, which will be for a physical examination. (2) Hypercholesteremia: Code(s): E78.00 - Pure hypercholesterolemia, unspecified Category: Medical Plan: The patient was recently started on cholesterol medication. A lipid panel will be rechecked in 6 months during her physical exam. (3) Hypertriglyceridemia: Code(s): E78.1 - Pure hyperglyceridemia Category: Medical Plan: The patient was recently started on cholesterol medication. A lipid panel will be rechecked in 6 months during her physical exam. (4) Hyperlipidemia LDL goal <100: Code(s): E78.5 - Hyperlipidemia, unspecified Category: Medical Plan: The patient was recently started on cholesterol medication. A lipid panel will be rechecked in 6 months during her physical exam. (5) Microscopic hematuria: Code(s): R31.29 - Other microscopic hematuria Category: Medical Plan: The patient has been evaluated by a urologist for hematuria and is scheduled for a cystoscopy at the end of October to investigate further. She will continue to follow up with urology for this issue. (6) Colon polyp: Comment: 08/15/25 colonoscopy complete with excellent prep-3cm X 2cm Sessile serrated polyp without dysplasia (cecum), moderate diverticulosis (descending, sigmoid) moderate internal hemorrhoids. Recommendations for repeat in 6 months to remove remaining cecum polyps. Code(s): K63.5 - Polyp of colon Category: Medical Qualifiers: Colon polyp type: unspecified Colon location: unspecified part of colon Qualified Code(s): K63.5 - Polyp of colon Plan: Due to incomplete removal of polyps during her last procedure, she is scheduled for a repeat colonoscopy in 6 months. Future surveillance colonoscopies may be required every 1-3 years. (7) Healthcare maintenance: Code(s): Z00.00 - Encounter for general adult medical examination without abnormal findings Category: Medical Plan: The patient will undergo a mammogram and a bone density scan at the end of the year. She will schedule a follow-up appointment in 6 months for a physical, and she will call one week prior to have her lab work ordered. Plan Plan Patient was informed and verbally consented to the use of an ambient scribe for clinic note documentation during this visit. 1. Essential Hypertension The patient's blood pressure is well-controlled on metoprolol 100 mg ER and lisinopril 10 mg. A 90-day supply of metoprolol with 3 refills will be sent to the pharmacy. She was advised to continue monitoring her blood pressure at home and to call if it consistently exceeds 140/90 mmHg, with the option to take an additional dose of lisinopril if needed. A follow-up visit is scheduled in 6 months, which will be for a physical examination. 2. Hyperlipidemia The patient was recently started on cholesterol medication. A lipid panel will be rechecked in 6 months during her physical exam. 3. Hematuria The patient has been evaluated by a urologist for hematuria and is scheduled for a cystoscopy at the end of October to investigate further. She will continue to follow up with urology for this issue. 4. History Of Colon Polyps Due to incomplete removal of polyps during her last procedure, she is scheduled for a repeat colonoscopy in 6 months. Future surveillance colonoscopies may be required every 1-3 years. 5. Health Maintenance The patient will undergo a mammogram and a bone density scan at the end of the year. She will schedule a follow-up appointment in 6 months for a physical, and she will call one week prior to have her lab work ordered. Discussion Notes I discussed with the patient that her blood pressure is well-controlled on her current regimen of metoprolol and lisinopril. We agreed on a 6-month follow-up interval, provided she continues to monitor her blood pressure at home and it remains below 140/90 mmHg. I advised her that if her readings become elevated, she can take an extra 10 mg of lisinopril and should contact me. I sent a 90-day prescription for metoprolol with 3 refills to her pharmacy. We reviewed her other medical issues, including her upcoming cystoscopy for hematuria and her repeat colonoscopy in 6 months for incompletely removed polyps. We will perform a full physical with blood work at her next visit in 6 months, and I will order the labs one week prior at her request. Medications: New metoprolol succinate ER 100 mg PO DAILY 90 tabs 3RF Patient Instructions: Patient Instructions - Continue taking metoprolol 100 mg and lisinopril 10 mg daily for your blood pressure. - A refill for your metoprolol has been sent to your pharmacy. - Please keep checking your blood pressure at home. If it goes over 140/90, please call the office. You can take an extra pill of lisinopril if this happens. - Keep your appointment with the urologist at the end of October to check for blood in your urine. - Remember to get your mammogram and bone density test at the end of the year. - You are scheduled for another colonoscopy in six months to have the rest of the polyps removed. - Please schedule a follow-up appointment in six months for a full physical exam. Call us about a week before that appointment so we can order your blood work.
== END 2025-09-25 13:50 | disposition home or self-care (01) ==
LOC: HO.HMCSH 13:17
PROVIDERS: PCP Physician Assistant Medical; Visit Provider Physician Assistant Medical
DX: I10 Essential (primary) hypertension (principal); E78.00 Pure hypercholesterolemia, unspecified; E78.1 Pure hyperglyceridemia; E78.5 Hyperlipidemia, unspecified; R31.29 Other microscopic hematuria; K63.5 Polyp of colon; Z00.00 Encounter for general adult medical examination without abnormal findings

== ENCOUNTER → 2025-09-25 13:17 | Outpatient (BNVA) | payer OTHER, SELFPAY | PROVIDERS: PCP Physician Assistant Medical; Visit Provider Physician Assistant Medical | DX: Z00.00 Encounter for general adult medical examination without abnormal findings (principal); I10 Essential (primary) hypertension; E78.00 Pure hypercholesterolemia, unspecified; E78.1 Pure hyperglyceridemia; E78.5 Hyperlipidemia, unspecified; R31.29 Other microscopic hematuria; K63.5 Polyp of colon | CPT/HCPCS: 96127; 99212 ==

== ENCOUNTER 2025-10-22 08:05 | Outpatient (REF) | payer OTHER, SELFPAY ==
--- NOTE | ~2025-10-22 | MM_ITS ---
EXAMINATION: DXA BONE DENSITY AXIAL HISTORY: M81.0 - Age-related osteoporosis without current pathological fracture TECHNIQUE: [employer] Dual energy absorptiometry (DEXA) of the lumbar spine, total left hip, and femoral neck was performed. COMPARISON: Comparison is made with the prior examination dated 08/31/2018. FINDINGS: The bone mineral density of the lumbar spine is 0.984 g/cm2, corresponding to a T-score of -1.6, and a Z-score of -0.9. This is indicative of osteopenia. This represents a BMD change of -5.7% compared to the prior exam. This is statistically significant. The bone mineral density of the left total hip is 0.792 g/cm2, corresponding to a T-score of -1.7, and a Z-score of -1.1. This is indicative of osteopenia. This represents a BMD change of -9.7% compared to the prior exam. This is statistically significant. The bone mineral density of the left femoral neck is 0.728 g/cm2, corresponding to a T-score of -2.2, and a Z-score of -1.3. This is indicative of osteopenia. This represents a BMD change of -17.1% compared to the prior exam. FRACTURE RISK: The FRAX index suggests a ten year probability of major osteoporotic fracture of 11.4%, and of hip fracture 2.9%. MM/XR DEXA axial skeleton IMPRESSION: Based on bone mineral density, and according to World Health Organization (WHO) criteria, the diagnosis is consistent with osteopenia. Statistically, 68% of repeat scans fall within 1 SD (+/- 0.010 g/cm2 for AP spine L1-L4) and 1 SD (+/- 0.012 g/cm2 for femur total) FRAX is a trademark of the [employer]'s [place] [employer] Met[employer], a World Health Organization (WHO) Collaborating Center. Electronically signed by: Adrian Lee MD 10/22/2025 09:07 AM [facility] [place]
--- NOTE | ~2025-10-22 | MM_ITS ---
EXAMINATION: MM SCREENING DIGITAL BREAST TOMOSYNTHESIS, BILATERAL CLINICAL INFORMATION: Screening. Asymptomatic. COMPARISON: Mammography: Comparison is made with available priors TECHNIQUE: Digital breast mammography with tomosynthesis is performed in both the craniocaudal and mediolateral oblique views along with computer-aided detection (CAD). FINDINGS: There are scattered areas of fibroglandular density. There are no significant masses, abnormal calcifications, or other abnormalities. MM/MM tomosynthesis screening BI IMPRESSION: No mammographic evidence of malignancy. ASSESSMENT: BI-RADS Category 1: Negative RECOMMENDATION: Routine annual mammography screening. 1 year F/U This examination should not preclude the clinical evaluation of a suspicious palpable abnormality. This patient's information was entered into a reminder system with a target due date for their next mammogram. Electronically signed by: Ramila Dsouza DO 10/24/2025 03:57 PM [facility]
== END 2025-10-22 08:06 | disposition home or self-care (01) ==
LOC: HO.MAMMO 08:05
PROVIDERS: PCP Physician Assistant Medical; Visit Provider Physician Assistant Medical
DX: Z12.31 Encounter for screening mammogram for malignant neoplasm of breast (principal); M81.0 Age-related osteoporosis without current pathological fracture
CPT/HCPCS: 77063; 77067; 77080

== ENCOUNTER → 2025-10-22 08:45 | Outpatient (BNV) | payer OTHER, SELFPAY | PROVIDERS: PCP Physician Assistant Medical; Visit Provider Radiology Diagnostic Radiology | DX: E28.39 Other primary ovarian failure (principal) | CPT/HCPCS: 77080 ==